=== PATIENT | female | born 1975 | race American Indian/Alaskan Native ===

== ENCOUNTER 2016-09-17 16:50 | Inpatient (IN) | payer OTHER, SELFPAY ==
[2016-09-17] MEDS ORDERED: Docusate Sodium 100 MG Cap PO PRN (18:12)
[2016-09-17] MEDS ORDERED: Morphine 2 MG/ML Syringe IVPUSH PRN (18:12)
[2016-09-17] MEDS ORDERED: Acetaminophen 325 MG Tab PO PRN (18:12)
[2016-09-17] MEDS ORDERED: Ondansetron 4 MG Tab.DIS PO PRN (18:12)
[2016-09-17] MEDS ORDERED: Sodium Chloride 0.9% 10 ML Syringe FLUSH PRN (18:12)
--- NOTE | 2016-09-17 18:37 | PCM.HP ---
H&P History of Present Illness - General Date of Service: 09/17/16 Admit Problem/Dx: Admission Diagnosis/Problem Admission Diagnosis/Problem Cellulitis and abscess of foot excluding toe - History of Present Illness Initial Comments - Free Text/Narative: 41-year-old morbidly obese lady with a history of chronic venous stasis. She developed left lower extremity swelling with erythema associated with the drainage. She was seen in the clinic and was diagnosed with cellulitis. She was started on Keflex and Bactrim. She was using compression wrap. On the recheck appointment it seemed to be improving on 10 September,today was seen by her primary care physician and it was felt that the swelling gets worse significant leakage and the ongoing cellulitis is not improving. - Related Data Allergies/Adverse Reactions: Allergies Allergy/AdvReac Type Severity Reaction Status Date / Time codeine Allergy Hives Verified 07/11/14 21:06 propoxyphene napsylate Allergy Rash Verified 07/11/14 21:06 [From DarSpriggle Kidscet-N 100] Home Medications: Home Meds . [No Known Home Meds] 07/11/14 [History] Past Medical History Endocrine/Metabolic History: Reports: Obesity/BMI 30+ Social & Family History - Tobacco Use Smoking Status *Q: Current Every Day Smoker Tobacco Use Within Last Twelve Months: Cigarettes Years of Tobacco use: 25 - Alcohol Use Alcohol Use History: No Days Per Week of Alcohol Use: 0 - Recreational Drug Use Recreational Drug Use: No H&P Review of Systems - Review of Systems: Review Of Systems: See Below General: Denies: fever, chills Pulmonary: Denies: shortness of breath Cardiovascular: Denies: chest pain Gastrointestinal: Denies: Abdominal pain Skin: Reports: erythema Neurological: Denies: confusion Exam - Exam Exam: See Below - Exam Quality Assessment: No: supplemental oxygen General: alert, oriented Neck: supple, trachea midline, 2 Lungs: Clear to auscultation, Normal respiratory effort Cardiovascular: regular rate, regular rhythm Abdomen: normal bowel sounds, soft, other (morbidly obese) Extremities: edema (1+ right side, 2+ left) Skin: other (left lower extremity with venous status is dermatitis chronic changes with erythema swelling diffuse blisters and serosus leakage) - Patient Data Lab Results last 24 hrs: Results for MICHAEL RICHEY ( ) as of 09/17/2016 18:12 Ref. Range 09/17/2016 16:46 09/17/2016 16:48 BUN Latest Ref Range: 7 - 18 mg/dL 15 Sodium Latest Ref Range: 136 - 145 mmol/L 140 Potassium Latest Ref Range: 3.5 - 5.1 mmol/L 4.1 Chloride Latest Ref Range: 98 - 107 mmol/L 102 CO2 Latest Ref Range: 21.0 - 32.0 mmol/L 27.0 SERUM GLUCOSE Latest Ref Range: 70 - 99 mg/dL 90 Creatinine Latest Ref Range: 0.6 - 1.0 mg/dL 1.0 Calcium Latest Ref Range: 8.5 - 10.1 mg/dL 9.0 ANION GAP Latest Ref Range: 5.0 - 13.0 mmol/L 11.0 GFR Calculated Latest Units: mL/min/1.73 sq m >60 Hemoglobin A1C Latest Ref Range: 4.8 - 6.2 % 7.4 (H) CBC WITH AUTO DIFF Unknown Rpt (A) WBC Latest Ref Range: 3.60 - 11.00 K/uL 12.50 (H) RBC Latest Ref Range: 3.80 - 5.40 M/uL 5.12 Hemoglobin Latest Ref Range: 12.0 - 16.0 g/dL 12.8 Hematocrit Latest Ref Range: 35.0 - 49.0 % 39.4 MCV Latest Ref Range: 80.0 - 100.0 fL 76.9 (L) MCH Latest Ref Range: 26.0 - 34.0 pg 25.1 (L) MCHC Latest Ref Range: 32.0 - 36.0 g/dL 32.6 Platelets Latest Ref Range: 150 - 450 K/L 386 MPV Latest Ref Range: 8.0 - 13.0 fL 9.6 RDW CV Latest Ref Range: 11.5 - 14.0 % 16.1 (H) Total Count Unknown 100 Neutrophil Relative Percent Latest Ref Range: 42.2 - 75.2 % 75.0 Bands Relative Latest Ref Range: 2.0 - 6.0 % 1.0 (L) LYMPH % Latest Ref Range: 20.5 - 51.1 % 18.0 (L) MONOCYTE % Latest Ref Range: 1.7 - 9.3 % 4.0 Eosinophils Relative Latest Ref Range: 0.9 - 6.0 % 2.0 NEUT # Latest Ref Range: 1.40 - 6.50 K/UL 9.38 (H) Bands Absolute Latest Ref Range: 0.00 - 0.60 K/uL 0.13 LYMPH # Latest Ref Range: 1.20 - 3.40 K/UL 2.25 MONOCYTE # Latest Ref Range: 0.10 - 0.60 K/UL 0.50 Eosinophil Absolute Count Latest Ref Range: 0.00 - 0.50 K/uL 0.25 *Q Meaningful Use (ADM) - VTE *Q VTE Criteria *Q: - Stroke *Q Stroke Criteria *Q: - AMI *Q AMI Criteria *Q: - Problem List (1) Cellulitis and abscess of leg SNOMED Code(s): 390251575 ICD Code: L02.419 - CUTANEOUS ABSCESS OF LIMB, UNSPECIFIED; L03.119 - CELLULITIS OF UNSPECIFIED PART OF LIMB Status: Acute Current Visit: Yes (2) Morbid obesity SNOMED Code(s): 899074921, 44716435577085 ICD Code: E66.01 - MORBID (SEVERE) OBESITY DUE TO EXCESS CALORIES Status: Acute Current Visit: Yes Problem List Initiated/Reviewed/Updated: Yes Orders Last 24hrs: Active Orders 24 hr Category Date Time Status Patient Status [ADT] Routine ADT 09/17/16 18:12 Ordered Antiembolic Devices [RC] PER UNIT ROUTINE Care 09/17/16 18:13 Ordered Communication Order [RC] DAILY Care 09/17/16 18:29 Active Oxygen Therapy [RC] PRN Care 09/17/16 18:12 Ordered Peripheral IV Care [RC] . DIRECTED Care 09/17/16 18:13 Ordered Up With Assistance [RC] ASDIRECTED Care 09/17/16 18:12 Ordered VTE/DVT Education [RC] PER UNIT ROUTINE Care 09/17/16 18:12 Ordered Vital Signs [RC] Q4H Care 09/17/16 18:12 Ordered OT Evaluation and Treatment [CONS] Routine Cons 09/17/16 18:28 Ordered Regular Diet [DIET] Diet 09/17/16 Breakfast Ordered BASIC METABOLIC PANEL,BMP [CHEM] AM Lab 09/18/16 05:15 Ordered CBC WITH AUTO DIFF [HEME] AM Lab 09/18/16 05:15 Ordered CULTURE BLOOD [BC] Stat Lab 09/17/16 18:10 Ordered CULTURE BLOOD [BC] Stat Lab 09/17/16 18:10 Ordered LACTIC ACID [CHEM] Routine Lab 09/17/16 18:10 Ordered Acetaminophen [Tylenol] Med 09/17/16 18:12 Ordered 650 mg PO Q4H PRN Docusate Sodium [Colace] Med 09/17/16 18:12 Ordered 100 mg PO BID PRN Enoxaparin [Lovenox] Med 09/18/16 09:00 Ordered 40 mg SUBCUT DAILY Morphine Med 09/17/16 18:12 Ordered 1 mg IVPUSH Q2H PRN Multivitamins/Minerals [Vitamins and Minerals] Med 09/18/16 08:00 Ordered 1 tab PO WITHBREAKFAST Nicotine [Habitrol] Med 09/18/16 09:00 Ordered 14 mg TRDERM DAILY Ondansetron [Zofran ODT] Med 09/17/16 18:12 Ordered 4 mg PO Q6H PRN Piperacillin/Tazobactam [Zosyn] 3.375 gm Med 09/17/16 18:15 Ordered Sodium Chloride 0.9% [Normal Saline] 100 ml IV Q6H Sodium Chloride 0.9% [Saline Flush] Med 09/17/16 18:12 Ordered 10 ml FLUSH ASDIRECTED PRN Vancomycin Pharmacy to Dose [Pharmacy to Dose - Med 09/17/16 18:15 Ordered Vancomycin] 1 dose .XX ASDIRECTED Zolpidem [Ambien] Med 09/17/16 18:12 Ordered 5 mg PO BEDTIME PRN Antiembolic Hose [OM.PC] Per Unit Routine Oth 09/17/16 18:13 Ordered Blood Culture x2 Reflex Set [OM.PC] Stat Oth 09/17/16 18:10 Ordered Peripheral IV Insertion Adult [OM.PC] Routine Oth 09/17/16 18:12 Ordered Saline Lock Insert [OM.PC] Routine Oth 09/17/16 18:12 Ordered Resuscitation Status Routine Resus Stat 09/17/16 18:12 Ordered Venous Duplex Leg Lt [CV] Routine Ther 09/17/16 18:31 Ordered Medication Orders Acetaminophen (Tylenol) 650 mg PO Q4H PRN PRN Reason: Pain (Mild 1-3)/fever Docusate Sodium (Colace) 100 mg PO BID PRN PRN Reason: Constipation Enoxaparin Sodium (Lovenox) 40 mg SUBCUT DAILY [facility] Piperacillin Sod/Tazobactam (Sod 3.375 gm/ Sodium Chloride) 100 mls @ 200 mls/ hr IV Q6H [facility] Morphine Sulfate (Morphine) 1 mg IVPUSH Q2H PRN PRN Reason: Pain (severe 7-10) Multivitamins/Minerals (Vitamins And Minerals) 1 tab PO WITHBREAKFAST [facility] Nicotine (Habitrol) 14 mg TRDERM DAILY [facility] Ondansetron HCl (Zofran Odt) 4 mg PO Q6H PRN PRN Reason: nausea, able to take PO Sodium Chloride (Saline Flush) 10 ml FLUSH ASDIRECTED PRN PRN Reason: Keep Vein Open Vancomycin HCl (Pharmacy To Dose - Vancomycin) 1 dose .XX ASDIRECTED [facility] Zolpidem Tartrate (Ambien) 5 mg PO BEDTIME PRN PRN Reason: Sleep Assessment/Plan Comment:: 1. left lower extremity cellulitis with diffuse blistering, edema With history of chronic venous stasis dermatitis We'll obtain blood cultures obtain lower extremity venous ultrasound to rule out DVT Treat empirically with Zosyn and vancomycin We will use compression therapy, and consult occupational therapy for lymphedema wrap For wound care we'll use xeroform dressing. 2. Morbid obesity Weight loss suggested 3. DVT prophylaxis with Lovenox
[2016-09-17] MEDS ORDERED: Piperacillin/Tazobactam 3.375 GM in Sodium Chloride 0.9% 100 ML IV SCH (19:00)
[2016-09-17] MEDS ORDERED: Vancomycin 2 GM in Sodium Chloride 0.9% 500 ML IV SCH (20:00)
[2016-09-17] MEDS: Zolpidem 5 MG Tab PO PRN (22:17)
[2016-09-18] MEDS: Piperacillin/Tazobactam 3.375 GM in Sodium Chloride 0.9% 100 ML IV SCH ×4 (01:48→20:10)
[2016-09-18 06:53] LABS: CHLORIDE,CL 105 mmol/L (101-111); SODIUM,NA 135 mmol/L (135-145)
[2016-09-18] MEDS: Enoxaparin 40 MG/0.4 ML Syringe SUBCUT SCH (08:27)
[2016-09-18] MEDS: Multivitamins, Therapeutic with Minerals Tab PO SCH (08:28)
[2016-09-18] MEDS: Nicotine 14 MG/24 Hr Patch TRDERM SCH (08:28)
[2016-09-18] MEDS: Vancomycin 2 GM in Sodium Chloride 0.9% 500 ML IV SCH ×2 (10:04→22:02)
--- NOTE | 2016-09-18 10:37 | US ---
CLINICAL HISTORY: 41-year-old 320 pound female at bed rest with left lower extremity edema and calf pain. Rule out DVT. INTERPRETATION: Technically "difficult" exam due to patient's size confirms some lymph nodes in the left groin and apparent soft tissue edema but fails to demonstrate intravenous thrombosis or DVT lef t lower extremity. Cellulitis? No sign of intraluminal echogenic thrombus and normal compressibility deep veins of the left groin, thigh and knee with satisfactory augmentation venous waveforms demonstrated respectively in the left popliteal, superficial and common femoral vein. CONCLUSION: No DVT left lower extremity.
--- NOTE | 2016-09-18 10:42 | PN ---
DATE: 09/18/2016 SUBJECTIVE: Mrs. Malina Rueda is a 41-year-old female with a medical history significant for obesity,chronic venous stasis, was admitted to the hospital with left lower extremity cellulitis after failed outpatient treatment. For the past 24 hours, the patient continues to have swelling to the left lower extremity. She continues to have mild pain. No shortness of breath. No chest pain. No abdominal pain. No nausea. No vomiting. No diarrhea. REVIEW OF SYSTEMS: Cardiovascular, respiratory, gastrointestinal, neurology, constitutional were all evaluated. OBJECTIVE: Vital Signs: Temperature of 99, blood pressure of 115/51, respiratory rate of 20, pulse of 109, saturating on 93%. General Appearance: The patient is well oriented to time, place, and person. Follows commands spontaneously. Cardiovascular System: S1, S2 heard with normal intensity. No gallops. Respiratory: Clear to auscultation bilaterally. No wheeze. No crepitations. Abdomen: Soft. Bowel sounds positive. Nontender. No rigidity. Extremities: Edema of bilateral lower extremity, but more so on the left side. Erythema and swelling on the left side. Skin breakdown on the left side. MEDICATIONS: Reviewed. Continue with: 1. Tylenol 650 mg every 4 hours as needed for pain. 2. Lovenox 40 mg daily. 3. Morphine every 2 hours as needed 1 mg. 4. Zosyn 3.375 g IV q.6 hourly. 5. Vancomycin pharmacy to dose. 6. Ambien 5 mg at bedtime as needed for sleep. LABORATORY DATA: WBC 9.3, hemoglobin 11.2, hematocrit 36.8, platelet count 324. Sodium 135, potassium 4.2, chloride 105, bicarb 23, BUN 12, creatinine 1. ASSESSMENT: 1. Cellulitis of the left lower extremity. 2. Chronic venous stasis. 3. Morbid obesity. PLAN: 1. Cellulitis. The patient has failed outpatient treatment with oral antibiotics; so, the patient was admitted to the hospital and started on IV antibiotics, Zosyn and vancomycin, after which her symptoms seems to be improving. Follow with the blood culture reports. Continue with IV antibiotics and continue with lymphedema wraps. The patient had ultrasound Doppler of the lower extremity, which did not show any evidence of DVT at this time. We will follow the official report. 2. DVT prophylaxis. Continue Lovenox for DVT prophylaxis. 3. We will have Physical Therapy and Occupational Therapy evaluate and treat the patient. 4. Discussed with Dr. Barth regarding the plan of care. [facility] /[id number]
[2016-09-19] MEDS: Zolpidem 5 MG Tab PO PRN (00:40)
[2016-09-19] MEDS: Piperacillin/Tazobactam 3.375 GM in Sodium Chloride 0.9% 100 ML IV SCH ×3 (02:11→14:17)
[2016-09-19 09:10] LABS: CHLORIDE,CL 105 mmol/L (101-111); SODIUM,NA 138 mmol/L (135-145)
[2016-09-19] MEDS: Nicotine 14 MG/24 Hr Patch TRDERM SCH (09:26)
[2016-09-19] MEDS: Multivitamins, Therapeutic with Minerals Tab PO SCH (09:28)
[2016-09-19] MEDS: Enoxaparin 40 MG/0.4 ML Syringe SUBCUT SCH (09:28)
[2016-09-19 11:13] VITALS: BP 108/49
[2016-09-19] MEDS: Vancomycin 2 GM in Sodium Chloride 0.9% 500 ML IV SCH (11:14)
--- NOTE | 2016-09-19 12:50 | DISCH ---
ADMITTING DIAGNOSIS: Cellulitis involving the left lower extremity. DISCHARGE DIAGNOSES: 1. Cellulitis involving the left lower extremity. 2. Cellulitis complicated with necrotic tissue requiring debridement needing higher level of care with surgery and wound care consultation needing discharge to higher level of care. HISTORY OF PRESENTING ILLNESS: Mrs. Malina Rueda is a 41-year-old female with medical history significant for obesity, chronic venous stasis was admitted to the hospital with left lower extremity cellulitis after failed outpatient treatment. She was started on broad-spectrum antibiotic with Zosyn and vancomycin. We continued with wound care, but unfortunately, her wound seems to be worsening with the wound cares. She is noted to have necrotic tissue along with some skin needing higher level of care, needing surgical consultation and also wound care consultation with possible debridement of the tissue. She is being discharged to higher level of care to [facility] for further evaluation and treatment. She remained hemodynamically stable on this admission. We will continue with broad-spectrum IV antibiotics. The patient's family members agreed for the transfer. PHYSICAL EXAMINATION: Vital Signs: On the day of discharge; temperature of 99, pulse of 77, blood pressure 108/49, respiratory rate of 20, and saturating at 98%. General Appearance: The patient is well oriented to time, place, and person. Follows commands spontaneously. Cardiovascular System: S1 and S2 heard with normal intensity. No gallops. Respiratory System: Clear to auscultation bilaterally. No wheeze. No crepitations. Abdomen: Soft. Bowel sounds positive. Nontender. No rigidity. Extremities: Mild edema in bilateral lower extremity, more so on the left side. The patient is noted have extensive erythema, swelling, and tenderness on the left side. Skin breakdown noted on the left side. Some necrotic skin tissue noted on the left medial aspect of the calf on the proximal site. Weeping wound noted on the left lower extremity. Neurologic: No gross focal neurological deficits. DISCHARGE MEDICATIONS: Include: 1. Tylenol 650 mg every 4 hours as needed for pain and fever. 2. Docusate sodium 100 mg twice a day as needed for constipation. 3. Lovenox 40 mg subcutaneous daily. 4. Morphine 1 mg IV every 2 hours as needed for pain. 5. Multivitamin tablet 1 tablet daily. 6. Nicotine transdermal patch 14 mg daily. 7. Zosyn 3.375 g every 6 hours. 8. Vancomycin 2 g IV every 12 hours. 9. Ambien 5 mg as needed for sleep. CONDITION ON ADMISSION: Poor. CONDITION ON DISCHARGE: Stable. Discharged to [facility] for surgery and wound care consultation for possible debridement of the wound. DIET: Cardiac healthy diet. ACTIVITY: As tolerated. Follow with primary care physician, after getting discharged from [facility]. Spent over 35 minutes of time in evaluating and treating this patient and coordination of cares. [facility] /[id number]
== END 2016-09-19 14:15 | DRG 603 ==
LOC: DL.MS 17:52 → EEVIPCON 17:52
PROVIDERS: ADMIT Internal Medicine; ATTEND Internal Medicine
DX: L03.116 Cellulitis of left lower limb (principal); I87.2 Venous insufficiency (chronic) (peripheral); E66.01 Morbid (severe) obesity due to excess calories; Z68.30 Body mass index [BMI] 30.0-30.9, adult; F17.210 Nicotine dependence, cigarettes, uncomplicated; Z88.8 Allergy status to other drugs, medicaments and biological substances
CPT/HCPCS: 36410; 36415; 80048; 80202; 83605; 85025; 87040; 93971; 97165-GO; A9270-GY; J1650; J2543; J3370; J7040; J7050

== ENCOUNTER 2017-02-16 11:08 | Inpatient (IN) | payer OTHER, SELFPAY ==
--- NOTE | 2017-02-16 11:12 | EDM.PDOC ---
ED HPI GENERAL MEDICAL PROBLEM - General Chief Complaint: Lower Extremity Injury/Pain Stated Complaint: RIGHT LEG Time Seen by Provider: 02/16/17 11:11 Source of Information: Reports: Patient, Old Records, RN, RN Notes Reviewed History Limitations: Reports: No Limitations - History of Present Illness INITIAL COMMENTS - FREE TEXT/NARRATIVE: Arrives from home by POV with c/o noticing a small wound on the back of the Rt calf yesterday with some redness around it. This morning pt reports she woke with a large area of redness and pain with a fever sensation. She came to the ER now because within a few hours the redness had rapidly increased from the Rt ankle to the knee and goes all the way around, and the pain is far more than what she would expect from cellulitis based on her past experience. Pt c/o nausea also. Onset: Gradual Onset Date: 02/15/17 Duration: Constant, Getting Worse Location: Reports: Lower Extremity, Right Quality: Reports: Ache, Burning, Throbbing Severity: Severe Improves with: Reports: None Worsens with: Reports: Other (palpation), Movement Associated Symptoms: Reports: No Other Symptoms Right Lower Leg Pain Score (Numeric/FACES): 6 - Related Data Allergies Allergy/AdvReac Type Severity Reaction Status Date / Time codeine Allergy Hives Verified 07/11/14 21:06 propoxyphene napsylate Allergy Rash Verified 07/11/14 21:06 [From Darnielscet-N 100] Home Meds: Home Meds Acetaminophen [Tylenol] 650 mg PO Q4H PRN #0 tablet 09/19/16 [Rx] Docusate Sodium [Colace] 100 mg PO BID PRN #0 cap 09/19/16 [Rx] Enoxaparin [Lovenox] 40 mg SUBCUT DAILY syringe 09/19/16 [Rx] Morphine 1 mg IVPUSH Q2H PRN #0 syringe 09/19/16 [Rx] Multivitamins/Minerals [Vitamins and Minerals] 1 tab PO WITHBREAKFAST tablet [Rx] Nicotine [Habitrol] 14 mg TRDERM DAILY patch 09/19/16 [Rx] Piperacillin/Tazobactam [Zosyn] 3.375 gm IV Q6H vial 09/19/16 [Rx] Vancomycin 2 gm IV Q12H sdv 09/19/16 [Rx] Zolpidem [Ambien] 5 mg PO BEDTIME PRN #7 tablet 09/19/16 [Rx] Past Medical History Cardiovascular History: Reports: Other (See Below) Other Cardiovascular History: edema with chronic venous stasis Endocrine/Metabolic History: Reports: Diabetes, Type II (borderline), Obesity/ BMI 30+ Dermatologic History: Reports: Cellulitis, Venous Stasis Dermatitis - Infectious Disease History Infectious Disease History: Reports: MRSA - Past Surgical History Cardiovascular Surgical History: Reports: None Social & Family History - Family History Family Medical History: Noncontributory - Tobacco Use Smoking Status *Q: Current Every Day Smoker Years of Tobacco use: 25 Packs/Tins Daily: 1 Used Tobacco, but Quit: No Second Hand Smoke Exposure: No - Caffeine Use Caffeine Use: Reports: Soda - Alcohol Use Days Per Week of Alcohol Use: 0 - Recreational Drug Use Recreational Drug Use: No - Living Situation & Occupation Living situation: Reports: with Family Occupation: Disabled Review of Systems - Review of Systems Review Of Systems: ROS reveals no pertinent complaints other than HPI. ED EXAM, GENERAL - Physical Exam Exam: See Below Exam Limited By: No Limitations General Appearance: Alert, WD/WN, No Apparent Distress, Anxious, Obese Eye Exam: Bilateral Eye: Normal Inspection Nose: Normal Inspection, Normal Mucosa, No Blood Throat/Mouth: Normal Inspection Head: Atraumatic, Normocephalic Neck: Normal Inspection Respiratory/Chest: No Respiratory Distress, Lungs Clear, Normal Breath Sounds, No Accessory Muscle Use, Chest Non-Tender Cardiovascular: Regular Rate, Rhythm, Tachycardia GI/Abdominal: Normal Bowel Sounds, Soft, Other (benign obese abdomen) Extremities: Normal Capillary Refill, Pedal Edema (with chronic venous stasis changes), Leg Pain (Rt from ankle to mid-thigh), Increased Warmth (Rt lower ext. ), Redness Neurological: Alert, Oriented, CN II-XII Intact, Normal Cognition, No Motor/ Sensory Deficits Psychiatric: Anxious Course - Vital Signs Last Recorded V/S: Last Vital Signs Temp 37.9 C 02/16/17 11:31 Pulse 119 H 02/16/17 11:31 Resp 20 02/16/17 11:31 BP 144/113 H 02/16/17 11:31 Pulse Ox 95 02/16/17 11:31 - Orders/Labs/Meds Orders: Active Orders 24 hr Category Date Time Status Peripheral IV Care [RC] . DIRECTED Care 02/16/17 11:51 Active Tibia Fibula wo Cont Rt [MR] Routine Exams 02/16/17 12:43 Taken CULTURE BLOOD [BC] Stat Lab 02/16/17 12:20 Results CULTURE BLOOD [BC] Stat Lab 02/16/17 14:22 Results Sodium Chloride 0.9% [Saline Flush] Med 02/16/17 11:51 Active 10 ml FLUSH ASDIRECTED PRN Blood Culture x2 Reflex Set [OM.PC] Stat Oth 02/16/17 11:50 Ordered Peripheral IV Insertion Adult [OM.PC] Stat Oth 02/16/17 11:50 Ordered Medication Orders Sodium Chloride (Saline Flush) 10 ml FLUSH ASDIRECTED PRN PRN Reason: Keep Vein Open Last Admin: 02/16/17 14:38 Dose: 10 ml Labs: Laboratory Tests 02/16/17 02/16/17 02/16/17 Range/Units 12:20 14:11 14:11 WBC (5.0-10.0) 10^3/uL RBC (4.2-5.4) 10^6/uL Hgb (12.0-16.0) g/dL Hct (37.0-47.0) % MCV (80-100) fL MCH (27.0-34.0) pg MCHC (33.0-35.0) g/dL Plt Count (150-450) 10^3/uL Neut % (Auto) (42.2-75.2) % Lymph % (Auto) (20.5-50.1) % [place] % (Auto) (2-8) % Eos % (Auto) (1.0-3.0) % Baso % (Auto) (0.0-1.0) % Add Manual Diff Neutrophils % (Manual) % Band Neutrophils % % Lymphocytes % (Manual) % Monocytes % (Manual) % Sodium (135-145) mmol/L Potassium (3.6-5.0) mmol/L Chloride (101-111) mmol/L Carbon Dioxide (21.0-31.0) mmol/L Anion Gap BUN (7-18) mg/dL Creatinine (0.6-1.3) mg/dL Est Cr Clr Drug Dosing mL/min Estimated GFR (MDRD) BUN/Creatinine Ratio Glucose (74-105) mg/dL Lactic Acid 2.2 (0.5-2.2) mmol/L Calcium (8.4-10.2) mg/dl Total Bilirubin (0.2-1.0) mg/dL AST (10-42) IU/L ALT (10-60) IU/L Alkaline Phosphatase (42-121) IU/L Creatine Kinase (26-174) IU/L C-Reactive Protein (0.0-1.3) mg/dL Total Protein (6.7-8.2) g/dl Albumin (3.2-5.5) g/dl Globulin Albumin/Globulin Ratio Urine Color (YELLOW) Urine Appearance (CLEAR) Urine pH (5.0-9.0) Ur Specific [place] (1.005-1.030) Urine Protein (NEGATIVE) Urine Glucose (UA) (NEGATIVE) Urine Ketones (NEGATIVE) Urine Occult Blood (NEGATIVE) Urine Nitrite (NEGATIVE) Urine Bilirubin (NEGATIVE) Urine Urobilinogen (0.2-1.0) mg/dL Ur Leukocyte Esterase (NEGATIVE) Urine RBC /HPF Urine WBC (0-5/HPF) /HPF Ur Epithelial Cells /HPF Urine Bacteria (0-FEW/HPF) /HPF Urine Mucus /LPF Urine Trichomonas (0/HPF) /HPF Urine Yeast (0/HPF) /HPF Urine HCG, Qual Negative Urine Opiates Screen Positive H (NEGATIVE) Ur Oxycodone Screen Negative (NEGATIVE) Urine Methadone Screen Negative (NEGATIVE) Ur Barbiturates Screen Negative (NEGATIVE) U Tricyclic Antidepress Negative (NEGATIVE) Ur Phencyclidine Scrn Negative (NEGATIVE) Ur Amphetamine Screen Negative (NEGATIVE) U Methamphetamines Scrn Negative (NEGATIVE) Urine MDMA Screen Negative (NEGATIVE) U Benzodiazepines Scrn Negative (NEGATIVE) Urine Cocaine Screen Negative (NEGATIVE) U Marijuana (THC) Screen Negative (NEGATIVE) 02/16/17 02/16/17 02/16/17 Range/Units 14:11 14:22 14:22 WBC 26.3 H* (5.0-10.0) 10^3/uL RBC 5.55 H (4.2-5.4) 10^6/uL Hgb 14.0 (12.0-16.0) g/dL Hct 44.8 (37.0-47.0) % MCV 80.7 (80-100) fL MCH 25.2 L (27.0-34.0) pg MCHC 31.3 L (33.0-35.0) g/dL Plt Count 183 (150-450) 10^3/uL Neut % (Auto) 95.3 H (42.2-75.2) % Lymph % (Auto) 1.9 L (20.5-50.1) % [place] % (Auto) 2.7 (2-8) % Eos % (Auto) 0.0 L (1.0-3.0) % Baso % (Auto) 0.1 (0.0-1.0) % Add Manual Diff Yes Neutrophils % (Manual) 87 % Band Neutrophils % 5 % Lymphocytes % (Manual) 6 % Monocytes % (Manual) 2 % Sodium 142 (135-145) mmol/L Potassium 3.7 (3.6-5.0) mmol/L Chloride 107 (101-111) mmol/L Carbon Dioxide 24.0 (21.0-31.0) mmol/L Anion Gap 14.7 BUN 17 (7-18) mg/dL Creatinine 0.9 (0.6-1.3) mg/dL Est Cr Clr Drug Dosing 67.36 mL/min Estimated GFR (MDRD) > 60 BUN/Creatinine Ratio 18.88 Glucose 123 H (74-105) mg/dL Lactic Acid (0.5-2.2) mmol/L Calcium 8.5 (8.4-10.2) mg/dl Total Bilirubin 0.6 (0.2-1.0) mg/dL AST 21 (10-42) IU/L ALT 16 (10-60) IU/L Alkaline Phosphatase 76 (42-121) IU/L Creatine Kinase 40 (26-174) IU/L C-Reactive Protein (0.0-1.3) mg/dL Total Protein 7.0 (6.7-8.2) g/dl Albumin 3.5 (3.2-5.5) g/dl Globulin 3.5 Albumin/Globulin Ratio 1.00 Urine Color Yellow (YELLOW) Urine Appearance Cloudy (CLEAR) Urine pH 5.5 (5.0-9.0) Ur Specific [place] 1.020 (1.005-1.030) Urine Protein 30 H (NEGATIVE) Urine Glucose (UA) Negative (NEGATIVE) Urine Ketones Negative (NEGATIVE) Urine Occult Blood Moderate H (NEGATIVE) Urine Nitrite Negative (NEGATIVE) Urine Bilirubin Negative (NEGATIVE) Urine Urobilinogen 0.2 (0.2-1.0) mg/dL Ur Leukocyte Esterase Trace H (NEGATIVE) Urine RBC 5-10 H /HPF Urine WBC 5-10 H (0-5/HPF) /HPF Ur Epithelial Cells Many H /HPF Urine Bacteria Moderate H (0-FEW/HPF) /HPF Urine Mucus Rare /LPF Urine Trichomonas Present H (0/HPF) /HPF Urine Yeast Few H (0/HPF) /HPF Urine HCG, Qual Urine Opiates Screen (NEGATIVE) Ur Oxycodone Screen (NEGATIVE) Urine Methadone Screen (NEGATIVE) Ur Barbiturates Screen (NEGATIVE) U Tricyclic Antidepress (NEGATIVE) Ur Phencyclidine Scrn (NEGATIVE) Ur Amphetamine Screen (NEGATIVE) U Methamphetamines Scrn (NEGATIVE) Urine MDMA Screen (NEGATIVE) U Benzodiazepines Scrn (NEGATIVE) Urine Cocaine Screen (NEGATIVE) U Marijuana (THC) Screen (NEGATIVE) 02/16/17 Range/Units 14:22 WBC (5.0-10.0) 10^3/uL RBC (4.2-5.4) 10^6/uL Hgb (12.0-16.0) g/dL Hct (37.0-47.0) % MCV (80-100) fL MCH (27.0-34.0) pg MCHC (33.0-35.0) g/dL Plt Count (150-450) 10^3/uL Neut % (Auto) (42.2-75.2) % Lymph % (Auto) (20.5-50.1) % [place] % (Auto) (2-8) % Eos % (Auto) (1.0-3.0) % Baso % (Auto) (0.0-1.0) % Add Manual Diff Neutrophils % (Manual) % Band Neutrophils % % Lymphocytes % (Manual) % Monocytes % (Manual) % Sodium (135-145) mmol/L Potassium (3.6-5.0) mmol/L Chloride (101-111) mmol/L Carbon Dioxide (21.0-31.0) mmol/L Anion Gap BUN (7-18) mg/dL Creatinine (0.6-1.3) mg/dL Est Cr Clr Drug Dosing mL/min Estimated GFR (MDRD) BUN/Creatinine Ratio Glucose (74-105) mg/dL Lactic Acid (0.5-2.2) mmol/L Calcium (8.4-10.2) mg/dl Total Bilirubin (0.2-1.0) mg/dL AST (10-42) IU/L ALT (10-60) IU/L Alkaline Phosphatase (42-121) IU/L Creatine Kinase (26-174) IU/L C-Reactive Protein 4.6 H (0.0-1.3) mg/dL Total Protein (6.7-8.2) g/dl Albumin (3.2-5.5) g/dl Globulin Albumin/Globulin Ratio Urine Color (YELLOW) Urine Appearance (CLEAR) Urine pH (5.0-9.0) Ur Specific [place] (1.005-1.030) Urine Protein (NEGATIVE) Urine Glucose (UA) (NEGATIVE) Urine Ketones (NEGATIVE) Urine Occult Blood (NEGATIVE) Urine Nitrite (NEGATIVE) Urine Bilirubin (NEGATIVE) Urine Urobilinogen (0.2-1.0) mg/dL Ur Leukocyte Esterase (NEGATIVE) Urine RBC /HPF Urine WBC (0-5/HPF) /HPF Ur Epithelial Cells /HPF Urine Bacteria (0-FEW/HPF) /HPF Urine Mucus /LPF Urine Trichomonas (0/HPF) /HPF Urine Yeast (0/HPF) /HPF Urine HCG, Qual Urine Opiates Screen (NEGATIVE) Ur Oxycodone Screen (NEGATIVE) Urine Methadone Screen (NEGATIVE) Ur Barbiturates Screen (NEGATIVE) U Tricyclic Antidepress (NEGATIVE) Ur Phencyclidine Scrn (NEGATIVE) Ur Amphetamine Screen (NEGATIVE) U Methamphetamines Scrn (NEGATIVE) Urine MDMA Screen (NEGATIVE) U Benzodiazepines Scrn (NEGATIVE) Urine Cocaine Screen (NEGATIVE) U Marijuana (THC) Screen (NEGATIVE) Meds: Medications Generic Name Dose Route Start Last Admin Trade Name Freq PRN Reason Stop Dose Admin Sodium Chloride 10 ml 02/16/17 11:51 02/16/17 14:38 Saline Flush FLUSH 10 ml ASDIRECTED PRN Administration Keep Vein Open Discontinued Medications Generic Name Dose Route Start Last Admin Trade Name Freq PRN Reason Stop Dose Admin Diphenhydramine HCl 25 mg 02/16/17 12:08 02/16/17 12:40 Benadryl IVPUSH 02/16/17 12:09 25 mg ONETIME ONE Administration Sodium Chloride 1,000 mls @ 999 mls/hr 02/16/17 11:51 02/16/17 12:37 Normal Saline IV 02/16/17 12:51 999 mls/hr .BOLUS ONE Administration Vancomycin HCl 2 gm/ Sodium 500 mls @ 333.333 mls/hr 02/16/17 14:00 02/16/17 15:09 Chloride IV 02/16/17 15:29 333.333 mls/hr ONETIME ONE Administration Piperacillin Sod/Tazobactam 100 mls @ 200 mls/hr 02/16/17 13:15 02/16/17 14: 38 Sod 4.5 gm/ Sodium Chloride IV 02/16/17 13:44 200 mls/hr ONETIME ONE Administration Clindamycin Phosphate 900 mg/ 106 mls @ 200 mls/hr 02/16/17 14:26 Sodium Chloride IV 02/16/17 14:57 ONETIME ONE Sodium Chloride 1,000 mls @ 999 mls/hr 02/16/17 14:26 02/16/17 14:28 Normal Saline IV 02/16/17 15:26 999 mls/hr .BOLUS ONE Administration Metronidazole 2,000 mg 02/16/17 15:13 Metronidazole PO 02/16/17 15:14 ONETIME ONE Morphine Sulfate 4 mg 02/16/17 11:51 02/16/17 12:38 Morphine IVPUSH 02/16/17 11:52 4 mg ONETIME ONE Administration Morphine Sulfate 4 mg 02/16/17 14:07 Morphine IVPUSH 02/16/17 14:08 ONETIME ONE Ondansetron HCl 4 mg 02/16/17 11:51 02/16/17 12:39 Zofran IV 02/16/17 11:52 4 mg ONETIME ONE Administration - Radiology Interpretation Free Text/Narrative:: MRI Rt lower ext: soft tissue edema and fluid-like signal is present in the deep subcutaneous fat of the right lower extremity overlying the anterior muscle compartment and the medial posterior muscle comparts of the lower leg. No abnormal signal within the muscle groups themselves to suggest myositis. No abnormal fluid collections within the intermuscular septae or gas bubbles within the deep soft tissues to suggest necrotizing fascitis. The tibia and fibula cortical outlines and marrow signal appear normal. No evidence of osteomyelitis. See rad report. Departure - Departure Time of Disposition: 15:38 ((Admit to Dr. Barth)) Disposition: Admitted As Inpatient 65 Condition: Serious Clinical Impression: Cellulitis of right lower extremity, Trichimoniasis - Discharge Information Forms: ED Department Discharge - My Orders Last 24 Hours: My Active Orders 02/16/17 11:50 Blood Culture x2 Reflex Set [OM.PC] Stat Peripheral IV Insertion Adult [OM.PC] Stat 02/16/17 11:51 Peripheral IV Care [RC] . DIRECTED Sodium Chloride 0.9% [Saline Flush] 10 ml FLUSH ASDIRECTED PRN 02/16/17 12:20 CULTURE BLOOD [BC] Stat 02/16/17 12:43 Tibia Fibula wo Cont Rt [MR] Routine 02/16/17 14:22 CULTURE BLOOD [BC] Stat - Assessment/Plan Last 24 Hours: My Active Orders 02/16/17 11:50 Blood Culture x2 Reflex Set [OM.PC] Stat Peripheral IV Insertion Adult [OM.PC] Stat 02/16/17 11:51 Peripheral IV Care [RC] . DIRECTED Sodium Chloride 0.9% [Saline Flush] 10 ml FLUSH ASDIRECTED PRN 02/16/17 12:20 CULTURE BLOOD [BC] Stat 02/16/17 12:43 Tibia Fibula wo Cont Rt [MR] Routine 02/16/17 14:22 CULTURE BLOOD [BC] Stat
[2017-02-16] MEDS ORDERED: Morphine 4 MG/ML Syringe IVPUSH ONE ×2 (11:51→14:07)
[2017-02-16] MEDS ORDERED: Ondansetron 4 MG/2 ML SDV IV ONE (11:51)
[2017-02-16] MEDS ORDERED: Sodium Chloride 0.9% 1,000 ML IV ONE ×2 (11:51→14:26)
[2017-02-16] MEDS ORDERED: diphenhydrAMINE 50 MG/ML SDV IVPUSH ONE (12:08)
[2017-02-16] MEDS ORDERED: MEROPENEM IV ONE (12:09)
[2017-02-16] MEDS ORDERED: SODIUM CHLORIDE 0.9% IV ONE (12:09)
[2017-02-16] MEDS ORDERED: Vancomycin 500 MG SDV IV ONE (12:09)
[2017-02-16] MEDS ORDERED: Piperacillin/Tazobactam 4.5 GM in Sodium Chloride 0.9% 50 ML IV ONE ×2 (12:11→13:15)
[2017-02-16] MEDS ORDERED: Piperacillin/Tazobactam 4.5 GM in Sodium Chloride 0.9% 100 ML IV ONE (13:15)
[2017-02-16] MEDS ORDERED: Vancomycin 2 GM in Sodium Chloride 0.9% 500 ML IV ONE (14:00)
[2017-02-16] MEDS ORDERED: Clindamycin Phosphate 900 MG in Sodium Chloride 0.9% 100 ML IV ONE (14:26)
[2017-02-16] MEDS: Sodium Chloride 0.9% 10 ML Syringe FLUSH PRN ×2 (14:38→20:13)
[2017-02-16 14:55] LABS: CHLORIDE,CL 107 mmol/L (101-111); SODIUM,NA 142 mmol/L (135-145)
[2017-02-16] MEDS ORDERED: metroNIDAZOLE 250 MG Tab PO ONE (15:13)
[2017-02-16] MEDS ORDERED: Morphine 2 MG/ML Syringe IVPUSH PRN (16:26)
[2017-02-16] MEDS ORDERED: Ondansetron 4 MG Tab.DIS PO PRN (16:27)
[2017-02-16] MEDS ORDERED: Ondansetron 4 MG/2 ML SDV IVPUSH PRN (16:27)
[2017-02-16] MEDS ORDERED: Docusate Sodium 100 MG Cap PO PRN (16:27)
[2017-02-16] MEDS ORDERED: Piperacillin/Tazobactam 3.375 GM in Sodium Chloride 0.9% 100 ML IV SCH (16:30)
--- NOTE | 2017-02-16 17:00 | PCM.HP ---
H&P History of Present Illness - General Date of Service: 02/16/17 Admit Problem/Dx: Admission Diagnosis/Problem Admission Diagnosis/Problem Cellulitis Source of Information: Patient, Family () - History of Present Illness Initial Comments - Free Text/Narative: The patient is a 41-year-old lady who has a history of morbid obesity, chronic venous cystitis, recurrent lower extremity cellulitis. She has been on metformin for diabetes. She developed nausea and vomiting today and noted to have a right lower extremity redness. She also noted to small area of scabs on the posterior calf. She had chills associated with fever of 104. She has a chronic diarrhea with food. No associated chest pain, no shortness of breath. Right Lower Leg Pain Score (Numeric/FACES): 6 - Related Data Allergies/Adverse Reactions: Allergies Allergy/AdvReac Type Severity Reaction Status Date / Time codeine Allergy Hives Verified 02/16/17 16:48 propoxyphene napsylate Allergy Rash Verified 02/16/17 16:48 [From Darvocet-N 100] Home Medications: Home Meds Ibuprofen 200 mg PO ASDIRECTED PRN 02/16/17 [History] metFORMIN [Glucophage] 500 mg PO BIDMEALS 02/16/17 [History] Past Medical History Cardiovascular History: Reports: Other (See Below) Other Cardiovascular History: edema with chronic venous stasis Endocrine/Metabolic History: Reports: Diabetes, Type II (borderline), Obesity/ BMI 30+ Dermatologic History: Reports: Cellulitis, Venous Stasis Dermatitis - Infectious Disease History Infectious Disease History: Reports: MRSA - Past Surgical History Cardiovascular Surgical History: Reports: None Social & Family History - Family History Family Medical History: Noncontributory - Tobacco Use Smoking Status *Q: Current Every Day Smoker Years of Tobacco use: 25 Packs/Tins Daily: 1 Used Tobacco, but Quit: No Second Hand Smoke Exposure: No - Caffeine Use Caffeine Use: Reports: Soda - Alcohol Use Days Per Week of Alcohol Use: 0 - Recreational Drug Use Recreational Drug Use: No - Living Situation & Occupation Living situation: Reports: with Family Occupation: Disabled H&P Review of Systems - Review of Systems: Review Of Systems: See Below General: Reports: Fever, Chills Pulmonary: Denies: Shortness of Breath Cardiovascular: Denies: Chest Pain Gastrointestinal: Denies: Abdominal Pain Genitourinary: Denies: Frequency Musculoskeletal: Reports: Leg Pain (right) Psychiatric: Denies: Confusion Exam - Exam Exam: See Below - Vital Signs Vital Signs: Last Vital Signs Temp 37.9 C 02/16/17 11:31 Pulse 119 H 02/16/17 11:31 Resp 20 02/16/17 11:31 BP 144/113 H 02/16/17 11:31 Pulse Ox 95 02/16/17 11:31 Weight: 161.025 kg - Exam Quality Assessment: No: Supplemental Oxygen General: Alert, Oriented Neck: Supple Lungs: Clear to Auscultation, Normal Respiratory Effort Cardiovascular: Regular Rate, Regular Rhythm GI/Abdominal Exam: Normal Bowel Sounds, Soft, Non-Tender, Other (Morbidly obese) Back Exam: Normal Inspection Extremities: Other (Has mild left lower extremity and moderate right lower extremity edema) Skin: Warm, Other (On the left lower extremity there is chronic venous dialysis brownish discoloration, on the right lower extremity there is a reddened area up to knee, 2 small scabs on the posterior calf area without drainage) Psychiatric: Alert, Normal Affect, Normal Mood - Patient Data Result Diagrams: 02/16/17 14:22 02/16/17 14:22 *Q Meaningful Use (ADM) - VTE *Q VTE Criteria *Q: - Stroke *Q Stroke Criteria *Q: - AMI *Q AMI Criteria *Q: - Problem List (1) Diabetes SNOMED Code(s): 70886855 ICD Code: E11.9 - TYPE 2 DIABETES MELLITUS WITHOUT COMPLICATIONS Status: Acute Current Visit: Yes (2) Cellulitis of right lower extremity SNOMED Code(s): 876814250 ICD Code: L03.115 - CELLULITIS OF RIGHT LOWER LIMB Status: Acute Current Visit: Yes (3) Morbid obesity SNOMED Code(s): 657832180, 54335909164206 ICD Code: E66.01 - MORBID (SEVERE) OBESITY DUE TO EXCESS CALORIES Status: Acute Current Visit: No Problem List Initiated/Reviewed/Updated: Yes Orders Last 24hrs: Active Orders 24 hr Category Date Time Status Glucose [Blood Glucose Check, Bedside] [RC] QIDACANDBED Care 02/16/17 16:50 Active BASIC METABOLIC PANEL,BMP [CHEM] AM Lab 02/17/17 05:15 Ordered CBC WITH AUTO DIFF [HEME] AM Lab 02/17/17 05:15 Ordered VANCOMYCIN TROUGH [CHEM] Timed Lab 02/17/17 13:30 Ordered Insulin Aspart [NovoLOG] Med 02/16/17 17:00 Active See Protocol SUBCUT TIDAC Piperacillin/Tazobactam [Zosyn] 3.375 gm Med 02/16/17 18:00 Active Sodium Chloride 0.9% [Normal Saline] 100 ml IV Q6HR Vancomycin 1.5 gm Med 02/16/17 22:00 Active Sodium Chloride 0.9% [Normal Saline] 500 ml IV Q8HR Vancomycin Pharmacy to Dose [Pharmacy to Dose - Med 02/16/17 16:45 Pending Vancomycin] 1 dose .XX ASDIRECTED Medication Orders Acetaminophen (Tylenol) 650 mg PO Q4H PRN PRN Reason: Pain (Mild 1-3)/fever Docusate Sodium (Colace) 100 mg PO BID PRN PRN Reason: Constipation Heparin Sodium (Porcine) (Heparin Sodium) 5,000 units SUBCUT Q8HR [facility]LY Piperacillin Sod/Tazobactam (Sod 3.375 gm/ Sodium Chloride) 100 mls @ 200 mls/ hr IV Q6HR [facility]LY Vancomycin HCl 1.5 gm/ Sodium (Chloride) 500 mls @ 333.333 mls/hr IV Q8HR A[facility]LY Insulin Aspart (Novolog) 0 unit SUBCUT TIDAC ASHLY PRN Reason: Protocol Morphine Sulfate (Morphine) 1 mg IVPUSH Q2H PRN PRN Reason: Pain (severe 7-10) Multivitamins/Minerals (Vitamins And Minerals) 1 tab PO WITHBREAKFAST [facility] Nicotine (Habitrol) 14 mg TRDERM DAILY [facility] Ondansetron HCl (Zofran Odt) 4 mg PO Q6H PRN PRN Reason: nausea, able to take PO Ondansetron HCl (Zofran) 4 mg IVPUSH Q6H PRN PRN Reason: Nausea/Vomiting Oxycodone HCl (Oxycodone) 5 mg PO Q4H PRN PRN Reason: Pain (moderate 4-6) Senna/Docusate Sodium (Senna Plus) 1 tab PO BEDTIME PRN PRN Reason: Constipation Sodium Chloride (Saline Flush) 10 ml FLUSH ASDIRECTED PRN PRN Reason: Keep Vein Open Last Admin: 02/16/17 14:38 Dose: 10 ml Vancomycin HCl (Pharmacy To Dose - Vancomycin) 1 dose .XX ASDIRECTED [facility] Assessment/Plan Comment:: The patient is a 41-year-old lady with a history of morbid obesity, recurrent lower extremity cellulitis and difficult to heal wounds. Presented with nausea, fever, right lower extremity redness Right lower extremity cellulitis with sepsis The patient has signs of cellulitis on the right leg, leukocytosis, high fever, systemic symptoms with nausea Will obtain 2 sets of blood cultures There are 2 small scabs but no drainage Will treat empirically with Zosyn and vancomycin Lower extremity edema Will use lymphedema wraps to bilateral lower extremities Consult OT for lymphedema wraps Diabetes Hold metformin Use supplemental insulin as needed DVT prophylaxis with subcutaneous heparin and mobilization
[2017-02-16] MEDS: Acetaminophen 325 MG Tab PO PRN (17:45)
[2017-02-16] MEDS: oxyCODONE 5 MG Tab PO PRN (17:46)
[2017-02-16] MEDS: Insulin Aspart 100 Units/ML 3 ML Pen SUBCUT SCH (19:10)
[2017-02-16] MEDS: Piperacillin/Tazobactam 3.375 GM in Sodium Chloride 0.9% 100 ML IV SCH (20:43)
[2017-02-17] MEDS: Vancomycin 1.5 GM in Sodium Chloride 0.9% 500 ML IV SCH ×2 (00:20→08:17)
[2017-02-17] MEDS: Sodium Chloride 0.9% 10 ML Syringe FLUSH PRN ×2 (00:24→07:37)
[2017-02-17] MEDS: Heparin Sodium 5,000 Units/ML Vial SUBCUT SCH ×4 (00:42→21:54)
[2017-02-17] MEDS: Acetaminophen 325 MG Tab PO PRN ×3 (00:54→19:41)
[2017-02-17] MEDS: Piperacillin/Tazobactam 3.375 GM in Sodium Chloride 0.9% 100 ML IV SCH ×4 (02:00→17:46)
[2017-02-17] MEDS: Insulin Aspart 100 Units/ML 3 ML Pen SUBCUT SCH ×3 (08:09→17:45)
[2017-02-17] MEDS: Multivitamins, Therapeutic with Minerals Tab PO SCH (08:47)
[2017-02-17] MEDS: Nicotine 14 MG/24 Hr Patch TRDERM SCH (08:47)
[2017-02-17] MEDS ORDERED: Albuterol/Ipratropium 3.0-0.5 MG/3 ML Neb Soln NEB PRN (09:18)
[2017-02-17] MEDS ORDERED: Nystatin Ointment 15 GM Tube TOP PRN (09:19)
[2017-02-17] MEDS: oxyCODONE 5 MG Tab PO PRN ×3 (09:55→21:52)
--- NOTE | 2017-02-17 10:30 | PCM.PN ---
- General Info Date of Service: 02/17/17 Admission Dx/Problem (Free Text): Admission Diagnosis/Problem Admission Diagnosis/Problem Cellulitis Subjective Update: overnight had fever associated with chills no cp, no sob, continued to heave r. leg redness, wpain no drainage, no new wound ithcing - Review of Systems General: Reports: Fever Pulmonary: Denies: Shortness of Breath Cardiovascular: Denies: Chest Pain Gastrointestinal: Denies: Abdominal Pain Genitourinary: Denies: Dysuria - Patient Data Vitals - Most Recent: Last Vital Signs Temp 37.8 C 02/17/17 07:00 Pulse 110 H 02/17/17 07:00 Resp 20 02/17/17 07:00 BP 109/54 L 02/17/17 07:00 Pulse Ox 92 L 02/17/17 07:00 Weight - Most Recent: 161.025 kg I&O - Last 24 Hours: Intake & Output 02/16/17 02/17/17 02/17/17 22:59 06:59 14:59 Intake Total 1992 879 492 Output Total 100 400 Balance 1992 779 92 Lab Results Last 24 Hours: Laboratory Results - last 24 hr 02/16/17 02/16/17 02/17/17 Range/Units 17:19 21:25 07:08 WBC 24.8 H (5.0-10.0) 10^3/uL RBC 4.97 (4.2-5.4) 10^6/uL Hgb 12.7 (12.0-16.0) g/dL Hct 40.6 (37.0-47.0) % MCV 81.7 (80-100) fL MCH 25.6 L (27.0-34.0) pg MCHC 31.3 L (33.0-35.0) g/dL Plt Count 147 L (150-450) 10^3/uL Neut % (Auto) 97.6 H (42.2-75.2) % Lymph % (Auto) 1.3 L (20.5-50.1) % [place] % (Auto) 1.1 L (2-8) % Eos % (Auto) 0.0 L (1.0-3.0) % Baso % (Auto) 0.0 (0.0-1.0) % Sodium (135-145) mmol/L Potassium (3.6-5.0) mmol/L Chloride (101-111) mmol/L Carbon Dioxide (21.0-31.0) mmol/L Anion Gap BUN (7-18) mg/dL Creatinine (0.6-1.3) mg/dL Est Cr Clr Drug Dosing mL/min Estimated GFR (MDRD) Glucose (74-105) mg/dL POC Glucose 122 H 132 H (70-105) mg/dl Calcium (8.4-10.2) mg/dl 02/17/17 02/17/17 Range/Units 07:08 07:59 WBC (5.0-10.0) 10^3/uL RBC (4.2-5.4) 10^6/uL Hgb (12.0-16.0) g/dL Hct (37.0-47.0) % MCV (80-100) fL MCH (27.0-34.0) pg MCHC (33.0-35.0) g/dL Plt Count (150-450) 10^3/uL Neut % (Auto) (42.2-75.2) % Lymph % (Auto) (20.5-50.1) % [place] % (Auto) (2-8) % Eos % (Auto) (1.0-3.0) % Baso % (Auto) (0.0-1.0) % Sodium 138 (135-145) mmol/L Potassium 4.4 (3.6-5.0) mmol/L Chloride 105 (101-111) mmol/L Carbon Dioxide 21.0 (21.0-31.0) mmol/L Anion Gap 16.4 BUN 24 H (7-18) mg/dL Creatinine 2.1 H (0.6-1.3) mg/dL Est Cr Clr Drug Dosing 28.87 mL/min Estimated GFR (MDRD) 26 Glucose 115 H (74-105) mg/dL POC Glucose 117 H (70-105) mg/dl Calcium 7.7 L (8.4-10.2) mg/dl Med Orders - Current: Current Medications Acetaminophen (Tylenol) 650 mg PO Q4H PRN PRN Reason: Pain (Mild 1-3)/fever Last Admin: 02/17/17 00:54 Dose: 650 mg Albuterol/Ipratropium (Duoneb 3.0-0.5 Mg/3 Ml) 3 ml NEB Q6HRRT PRN PRN Reason: sob, wheezing Docusate Sodium (Colace) 100 mg PO BID PRN PRN Reason: Constipation Heparin Sodium (Porcine) (Heparin Sodium) 5,000 units SUBCUT Q8HR [facility] Last Admin: 02/17/17 09:14 Dose: 5,000 units Piperacillin Sod/Tazobactam (Sod 3.375 gm/ Sodium Chloride) 100 mls @ 200 mls/ hr IV Q6HR [facility] Last Admin: 02/17/17 07:35 Dose: 200 mls/hr Sodium Chloride (Normal Saline) 1,000 mls @ 100 mls/hr IV ASDIRECTED [facility] Daptomycin 500 mg/ Sodium (Chloride) 50 mls @ 50 mls/hr IV Q24H [facility] Insulin Aspart (Novolog) 0 unit SUBCUT TIDAC [facility] PRN Reason: Protocol Last Admin: 02/17/17 08:09 Dose: Not Given Morphine Sulfate (Morphine) 1 mg IVPUSH Q2H PRN PRN Reason: Pain (severe 7-10) Multivitamins/Minerals (Vitamins And Minerals) 1 tab PO WITHBREAKFAST [facility] Last Admin: 02/17/17 08:47 Dose: 1 tab Nicotine (Habitrol) 14 mg TRDERM DAILY [facility] Last Admin: 02/17/17 08:47 Dose: 14 mg Nystatin (Nystatin Ointment) 1 gm TOP BID PRN PRN Reason: redness Ondansetron HCl (Zofran Odt) 4 mg PO Q6H PRN PRN Reason: nausea, able to take PO Ondansetron HCl (Zofran) 4 mg IVPUSH Q6H PRN PRN Reason: Nausea/Vomiting Oxycodone HCl (Oxycodone) 5 mg PO Q4H PRN PRN Reason: Pain (moderate 4-6) Last Admin: 02/17/17 09:55 Dose: 5 mg Senna/Docusate Sodium (Senna Plus) 1 tab PO BEDTIME PRN PRN Reason: Constipation Sodium Chloride (Saline Flush) 10 ml FLUSH ASDIRECTED PRN PRN Reason: Keep Vein Open Last Admin: 02/17/17 07:37 Dose: 10 ml Discontinued Medications Diphenhydramine HCl (Benadryl) 25 mg IVPUSH ONETIME ONE Stop: 02/16/17 12:09 Last Admin: 02/16/17 12:40 Dose: 25 mg Sodium Chloride (Normal Saline) 1,000 mls @ 999 mls/hr IV .BOLUS ONE Stop: 02/16/17 12:51 Last Admin: 02/16/17 12:37 Dose: 999 mls/hr Vancomycin HCl 2 gm/ Sodium (Chloride) 500 mls @ 333.333 mls/hr IV ONETIME ONE Stop: 02/16/17 15:29 Last Admin: 02/16/17 15:09 Dose: 333.333 mls/hr Piperacillin Sod/Tazobactam (Sod 4.5 gm/ Sodium Chloride) 100 mls @ 200 mls/hr IV ONETIME ONE Stop: 02/16/17 13:44 Last Admin: 02/16/17 14:38 Dose: 200 mls/hr Clindamycin Phosphate 900 mg/ (Sodium Chloride) 106 mls @ 200 mls/hr IV ONETIME ONE Stop: 02/16/17 14:57 Last Admin: 02/16/17 17:34 Dose: Not Given Sodium Chloride (Normal Saline) 1,000 mls @ 999 mls/hr IV .BOLUS ONE Stop: 02/16/17 15:26 Last Infusion: 02/16/17 18:03 Dose: Infused Piperacillin Sod/Tazobactam (Sod 3.375 gm/ Sodium Chloride) 100 mls @ 200 mls/ hr IV Q6H [facility] Vancomycin HCl 1.5 gm/ Sodium (Chloride) 500 mls @ 333.333 mls/hr IV Q8HR [facility] Last Admin: 02/17/17 08:17 Dose: 333.333 mls/hr Metronidazole (Metronidazole) 2,000 mg PO ONETIME ONE Stop: 02/16/17 15:14 Last Admin: 02/16/17 16:00 Dose: 2,000 mg Morphine Sulfate (Morphine) 4 mg IVPUSH ONETIME ONE Stop: 02/16/17 11:52 Last Admin: 02/16/17 12:38 Dose: 4 mg Morphine Sulfate (Morphine) 4 mg IVPUSH ONETIME ONE Stop: 02/16/17 14:08 Last Admin: 02/16/17 15:57 Dose: 4 mg Ondansetron HCl (Zofran) 4 mg IV ONETIME ONE Stop: 02/16/17 11:52 Last Admin: 02/16/17 12:39 Dose: 4 mg Piperacillin Sod/Tazobactam Sod (Zosyn) Confirm Administered Dose 3.375 gm .ROUTE .STK-MED ONE Stop: 02/16/17 17:39 Last Admin: 02/16/17 18:03 Dose: Not Given Piperacillin Sod/Tazobactam Sod (Zosyn) Confirm Administered Dose 3.375 gm .ROUTE .STK-MED ONE Stop: 02/16/17 17:42 Last Admin: 02/16/17 18:03 Dose: Not Given Piperacillin Sod/Tazobactam Sod (Zosyn) Confirm Administered Dose 3.375 gm .ROUTE .STK-MED ONE Stop: 02/17/17 00:31 Last Admin: 02/17/17 00:59 Dose: Not Given Piperacillin Sod/Tazobactam Sod (Zosyn) Confirm Administered Dose 3.375 gm .ROUTE .STK-MED ONE Stop: 02/17/17 05:41 Last Admin: 02/17/17 08:59 Dose: Not Given Vancomycin HCl (Pharmacy To Dose - Vancomycin) 1 dose .XX ONETIME ONE Stop: 02/16/17 16:25 Last Admin: 02/17/17 01:00 Dose: Not Given Vancomycin HCl (Pharmacy To Dose - Vancomycin) 1 dose .XX ASDIRECTED [facility] Vancomycin HCl (Pharmacy To Dose - Vancomycin) 1 dose .XX ASDIRECTED [facility] Vancomycin HCl (Pharmacy To Dose - Vancomycin) 1 dose .XX ASDIRECTED [facility] - Exam General: Alert, Oriented Neck: Supple Lungs: Clear to Auscultation, Normal Respiratory Effort Cardiovascular: Regular Rate, Regular Rhythm GI/Abdominal Exam: Other (morbidly obese) Extremities: Pedal Edema (b/l) Skin: Warm, Dry, Other (r. leg with erythema, 2 small scabbed wound, no drainage , left leg with chronic venous stasis changes) - Problem List & Annotations (1) Diabetes SNOMED Code(s): 00591141 Code(s): E11.9 - TYPE 2 DIABETES MELLITUS WITHOUT COMPLICATIONS Status: Acute Current Visit: Yes (2) Cellulitis of right lower extremity SNOMED Code(s): 262157589 Code(s): L03.115 - CELLULITIS OF RIGHT LOWER LIMB Status: Acute Current Visit: Yes (3) Morbid obesity SNOMED Code(s): 350896781, 15858372746236 Code(s): E66.01 - MORBID (SEVERE) OBESITY DUE TO EXCESS CALORIES Status: Acute Current Visit: No - Problem List Review Problem List Initiated/Reviewed/Updated: Yes - My Orders Last 24 Hours: My Active Orders 02/16/17 16:50 Glucose [Blood Glucose Check, Bedside] [RC] QIDACANDBED 02/16/17 17:00 Insulin Aspart [NovoLOG] See Protocol SUBCUT TIDAC 02/16/17 17:06 OT Evaluation and Treatment [CONS] Routine 02/16/17 18:00 Piperacillin/Tazobactam [Zosyn] 3.375 gm Sodium Chloride 0.9% [Normal Saline] 100 ml IV Q6HR 02/17/17 09:18 RT Aerosol Therapy [RC] ASDIRECTED Albuterol/Ipratropium [DuoNeb 3.0-0.5 MG/3 ML] 3 ml NEB Q6HRRT PRN 02/17/17 09:19 Nystatin [Nystatin Ointment] 1 gm TOP BID PRN 02/17/17 09:30 Sodium Chloride 0.9% [Normal Saline] 1,000 ml IV ASDIRECTED 02/17/17 10:00 DAPTOmycin [Cubicin] 500 mg Sodium Chloride 0.9% [Normal Saline] 50 ml IV Q24H 02/17/17 13:30 VANCOMYCIN TROUGH [CHEM] Timed 02/18/17 05:15 BASIC METABOLIC PANEL,BMP [CHEM] AM CBC WITH AUTO DIFF [HEME] AM - Plan Plan:: The patient is a 41-year-old lady with a history of morbid obesity, recurrent lower extremity cellulitis and difficult to heal wounds. Presented with nausea, fever, right lower extremity redness Right lower extremity cellulitis with sepsis The patient has signs of cellulitis on the right leg, leukocytosis, high fever, systemic symptoms with nausea blood cultures: pending There are 2 small scabs but no drainage Will treat empirically with Zosyn stop vanc due to ARF start dapto check cpk in am acute renal failure might be from Vanc give IVF stop vanc follow renal function and electrolytes Lower extremity edema Will use lymphedema wraps to bilateral lower extremities Consult OT for lymphedema wraps Diabetes Hold metformin Use supplemental insulin as needed DVT prophylaxis with subcutaneous heparin and mobilization
[2017-02-17] MEDS: DAPTOmycin 500 MG in Sodium Chloride 0.9% 50 ML IV SCH (10:50)
[2017-02-17] MEDS: Sodium Chloride 0.9% 1,000 ML IV SCH ×2 (12:11→22:12)
[2017-02-17] MEDS ORDERED: Ibuprofen 400 MG Tab PO ONE (21:38)
[2017-02-18] MEDS: Piperacillin/Tazobactam 3.375 GM in Sodium Chloride 0.9% 100 ML IV SCH ×2 (00:29→06:20)
[2017-02-18] MEDS: oxyCODONE 5 MG Tab PO PRN ×2 (03:56→10:07)
[2017-02-18] MEDS: Sodium Chloride 0.9% 1,000 ML IV SCH ×2 (04:27→12:49)
[2017-02-18] MEDS: Heparin Sodium 5,000 Units/ML Vial SUBCUT SCH (06:24)
[2017-02-18] MEDS: Insulin Aspart 100 Units/ML 3 ML Pen SUBCUT SCH ×2 (08:12→12:48)
[2017-02-18] MEDS: Multivitamins, Therapeutic with Minerals Tab PO SCH ×2 (09:29→10:11)
[2017-02-18] MEDS: Nicotine 14 MG/24 Hr Patch TRDERM SCH ×2 (09:30→10:10)
[2017-02-18] MEDS: DAPTOmycin 500 MG in Sodium Chloride 0.9% 50 ML IV SCH (10:54)
[2017-02-18] MEDS ORDERED: Calcium Carbonate 500 MG Tab.Chew PO PRN (11:15)
--- NOTE | 2017-02-18 12:23 | PCM.DCSUM1 ---
Discharge Summary - Hospital Course Free Text/Narrative:: The patient is a 41-year-old lady with a history of morbid obesity, recurrent lower extremity cellulitis and difficult to heal wounds. Presented with nausea, fever, right lower extremity redness Right lower extremity cellulitis with sepsis The patient has signs of cellulitis on the right leg, leukocytosis, high fever, systemic symptoms with nausea blood cultures: pending -neg for now MRI showed no abscess initially there were 2 small scabs but no drainage developed blisters on admission received vanc, zosyn due to acute renal failure stopped vanc started dapto follow cpk periodically acute renal failure might be from Vanc treated with IVF stop vanc follow renal function and electrolytes transfer to [facility] for nephro eval Lower extremity edema Will use lymphedema wraps to bilateral lower extremities consulted OT for lymphedema wraps Diabetes Hold metformin Use supplemental insulin as needed - Discharge Data Discharge Date: 02/18/17 Discharge Disposition: DC/Tfer to Acute Hospital 02 Condition: Serious - Discharge Diagnosis/Problem(s) (1) Diabetes SNOMED Code(s): 68419978 ICD Code: E11.9 - TYPE 2 DIABETES MELLITUS WITHOUT COMPLICATIONS Status: Acute Current Visit: Yes (2) Cellulitis of right lower extremity SNOMED Code(s): 371449082 ICD Code: L03.115 - CELLULITIS OF RIGHT LOWER LIMB Status: Acute Current Visit: Yes (3) Morbid obesity SNOMED Code(s): 988781963, 56974558888735 ICD Code: E66.01 - MORBID (SEVERE) OBESITY DUE TO EXCESS CALORIES Status: Acute Current Visit: No - Patient Summary/Data Consults: Consultations 02/16/17 17:06 OT Evaluation and Treatment [CONS] Routine - Patient Instructions Diet: Diabetic Diet Activity: As Tolerated - Discharge Plan Home Medications: Home Meds DAPTOmycin [Cubicin] 500 mg IV Q24H vial 02/18/17 [Rx] Insulin Aspart [NovoLOG] 0 unit SUBCUT TIDAC pen 02/18/17 [Rx] Morphine 1 mg IVPUSH Q2H PRN #0 syringe 02/18/17 [Rx] Nicotine [Habitrol] 14 mg TRDERM DAILY patch 02/18/17 [Rx] Piperacillin/Tazobactam [Zosyn] 3.375 gm IV Q6HR vial 02/18/17 [Rx] Sodium Chloride 0.9% [Normal Saline] 200 ml IV .Q1H #0 bag 02/18/17 [Rx] oxyCODONE 5 mg PO Q4H PRN #0 tablet 02/18/17 [Rx] - Discharge Summary/Plan Comment DC Time >30 min.: Yes (called [facility] for Tx, d/ dr. Encinas, filled out ambulance forms) - Patient Data Vitals - Most Recent: Last Vital Signs Temp 36.6 C 02/18/17 07:00 Pulse 98 02/18/17 07:00 Resp 20 02/18/17 07:00 BP 105/49 L 02/18/17 07:00 Pulse Ox 92 L 02/18/17 07:00 Weight - Most Recent: 161.025 kg I&O - Last 24 hours: Intake & Output 02/17/17 02/18/17 02/18/17 22:59 06:59 14:59 Intake Total 1613 316 105 Output Total 300 250 Balance 1313 66 105 Lab Results - Last 24 hrs: Laboratory Results - last 24 hr 02/17/17 02/17/17 02/18/17 Range/Units 17:11 21:03 06:28 WBC 21.7 H (5.0-10.0) 10^3/uL RBC 4.51 (4.2-5.4) 10^6/uL Hgb 11.5 L (12.0-16.0) g/dL Hct 37.0 (37.0-47.0) % MCV 82.0 (80-100) fL MCH 25.5 L (27.0-34.0) pg MCHC 31.1 L (33.0-35.0) g/dL Plt Count 124 L (150-450) 10^3/uL Neut % (Auto) 95.9 H (42.2-75.2) % Lymph % (Auto) 2.3 L (20.5-50.1) % [place] % (Auto) 1.6 L (2-8) % Eos % (Auto) 0.1 L (1.0-3.0) % Baso % (Auto) 0.1 (0.0-1.0) % Add Manual Diff Sodium (135-145) mmol/L Potassium (3.6-5.0) mmol/L Chloride (101-111) mmol/L Carbon Dioxide (21.0-31.0) mmol/L Anion Gap BUN (7-18) mg/dL Creatinine (0.6-1.3) mg/dL Est Cr Clr Drug Dosing mL/min Estimated GFR (MDRD) Glucose (74-105) mg/dL POC Glucose 189 H 123 H (70-105) mg/dl Calcium (8.4-10.2) mg/dl Creatine Kinase (26-174) IU/L 02/18/17 02/18/17 02/18/17 Range/Units 06:28 07:49 11:07 WBC (5.0-10.0) 10^3/uL RBC (4.2-5.4) 10^6/uL Hgb (12.0-16.0) g/dL Hct (37.0-47.0) % MCV (80-100) fL MCH (27.0-34.0) pg MCHC (33.0-35.0) g/dL Plt Count (150-450) 10^3/uL Neut % (Auto) (42.2-75.2) % Lymph % (Auto) (20.5-50.1) % [place] % (Auto) (2-8) % Eos % (Auto) (1.0-3.0) % Baso % (Auto) (0.0-1.0) % Add Manual Diff Sodium 140 (135-145) mmol/L Potassium 3.7 (3.6-5.0) mmol/L Chloride 110 (101-111) mmol/L Carbon Dioxide 20.0 L (21.0-31.0) mmol/L Anion Gap 13.7 BUN 31 H (7-18) mg/dL Creatinine 3.3 H (0.6-1.3) mg/dL Est Cr Clr Drug Dosing 18.37 mL/min Estimated GFR (MDRD) 15 Glucose 114 H (74-105) mg/dL POC Glucose 119 H 183 H (70-105) mg/dl Calcium 7.4 L (8.4-10.2) mg/dl Creatine Kinase 146 (26-174) IU/L Med Orders - Current: Current Medications Acetaminophen (Tylenol) 650 mg PO Q4H PRN PRN Reason: Pain (Mild 1-3)/fever Last Admin: 02/17/17 19:41 Dose: 650 mg Albuterol/Ipratropium (Duoneb 3.0-0.5 Mg/3 Ml) 3 ml NEB Q6HRRT PRN PRN Reason: sob, wheezing Calcium Carbonate/Glycine (Tums) 500 mg PO Q2H PRN PRN Reason: gastric upset Docusate Sodium (Colace) 100 mg PO BID PRN PRN Reason: Constipation Heparin Sodium (Porcine) (Heparin Sodium) 5,000 units SUBCUT Q8HR [facility] Last Admin: 02/18/17 06:24 Dose: 5,000 units Sodium Chloride (Normal Saline) 1,000 mls @ 200 mls/hr IV ASDIRECTED [facility] Last Admin: 02/18/17 04:27 Dose: 200 mls/hr Daptomycin 500 mg/ Sodium (Chloride) 50 mls @ 50 mls/hr IV Q24H [facility] Last Admin: 02/18/17 10:54 Dose: 50 mls/hr Piperacillin Sod/Tazobactam (Sod 3.375 gm/ Sodium Chloride) 100 mls @ 200 mls/ hr IV Q6HR [facility] Last Infusion: 02/18/17 07:14 Dose: Infused Insulin Aspart (Novolog) 0 unit SUBCUT TIDAC [facility] PRN Reason: Protocol Last Admin: 02/18/17 08:12 Dose: Not Given Morphine Sulfate (Morphine) 1 mg IVPUSH Q2H PRN PRN Reason: Pain (severe 7-10) Multivitamins/Minerals (Vitamins And Minerals) 1 tab PO WITHBREAKFAST [facility] Last Admin: 02/18/17 10:11 Dose: 1 tab Nicotine (Habitrol) 14 mg TRDERM DAILY [facility] Last Admin: 02/18/17 10:10 Dose: 14 mg Nystatin (Nystatin Ointment) 1 gm TOP BID PRN PRN Reason: redness Last Admin: 02/17/17 10:55 Dose: 1 applic Ondansetron HCl (Zofran Odt) 4 mg PO Q6H PRN PRN Reason: nausea, able to take PO Last Admin: 02/17/17 22:40 Dose: 4 mg Ondansetron HCl (Zofran) 4 mg IVPUSH Q6H PRN PRN Reason: Nausea/Vomiting Oxycodone HCl (Oxycodone) 5 mg PO Q4H PRN PRN Reason: Pain (moderate 4-6) Last Admin: 02/18/17 10:07 Dose: 5 mg Senna/Docusate Sodium (Senna Plus) 1 tab PO BEDTIME PRN PRN Reason: Constipation Sodium Chloride (Saline Flush) 10 ml FLUSH ASDIRECTED PRN PRN Reason: Keep Vein Open Last Admin: 02/17/17 07:37 Dose: 10 ml Discontinued Medications Diphenhydramine HCl (Benadryl) 25 mg IVPUSH ONETIME ONE Stop: 02/16/17 12:09 Last Admin: 02/16/17 12:40 Dose: 25 mg Sodium Chloride (Normal Saline) 1,000 mls @ 999 mls/hr IV .BOLUS ONE Stop: 02/16/17 12:51 Last Admin: 02/16/17 12:37 Dose: 999 mls/hr Vancomycin HCl 2 gm/ Sodium (Chloride) 500 mls @ 333.333 mls/hr IV ONETIME ONE Stop: 02/16/17 15:29 Last Admin: 02/16/17 15:09 Dose: 333.333 mls/hr Piperacillin Sod/Tazobactam (Sod 4.5 gm/ Sodium Chloride) 100 mls @ 200 mls/hr IV ONETIME ONE Stop: 02/16/17 13:44 Last Admin: 02/16/17 14:38 Dose: 200 mls/hr Clindamycin Phosphate 900 mg/ (Sodium Chloride) 106 mls @ 200 mls/hr IV ONETIME ONE Stop: 02/16/17 14:57 Last Admin: 02/16/17 17:34 Dose: Not Given Sodium Chloride (Normal Saline) 1,000 mls @ 999 mls/hr IV .BOLUS ONE Stop: 02/16/17 15:26 Last Infusion: 02/16/17 18:03 Dose: Infused Piperacillin Sod/Tazobactam (Sod 3.375 gm/ Sodium Chloride) 100 mls @ 200 mls/ hr IV Q6H [facility] Piperacillin Sod/Tazobactam (Sod 3.375 gm/ Sodium Chloride) 100 mls @ 200 mls/ hr IV Q6HR [facility] Last Admin: 02/17/17 07:35 Dose: 200 mls/hr Vancomycin HCl 1.5 gm/ Sodium (Chloride) 500 mls @ 333.333 mls/hr IV Q8HR [facility] Last Admin: 02/17/17 08:17 Dose: 333.333 mls/hr Ibuprofen (Motrin) 400 mg PO ONETIME ONE Stop: 02/17/17 21:39 Last Admin: 02/17/17 21:51 Dose: 400 mg Metronidazole (Metronidazole) 2,000 mg PO ONETIME ONE Stop: 02/16/17 15:14 Last Admin: 02/16/17 16:00 Dose: 2,000 mg Morphine Sulfate (Morphine) 4 mg IVPUSH ONETIME ONE Stop: 02/16/17 11:52 Last Admin: 02/16/17 12:38 Dose: 4 mg Morphine Sulfate (Morphine) 4 mg IVPUSH ONETIME ONE Stop: 02/16/17 14:08 Last Admin: 02/16/17 15:57 Dose: 4 mg Ondansetron HCl (Zofran) 4 mg IV ONETIME ONE Stop: 02/16/17 11:52 Last Admin: 02/16/17 12:39 Dose: 4 mg Piperacillin Sod/Tazobactam Sod (Zosyn) Confirm Administered Dose 3.375 gm .ROUTE .STK-MED ONE Stop: 02/16/17 17:39 Last Admin: 02/16/17 18:03 Dose: Not Given Piperacillin Sod/Tazobactam Sod (Zosyn) Confirm Administered Dose 3.375 gm .ROUTE .STK-MED ONE Stop: 02/16/17 17:42 Last Admin: 02/16/17 18:03 Dose: Not Given Piperacillin Sod/Tazobactam Sod (Zosyn) Confirm Administered Dose 3.375 gm .ROUTE .STK-MED ONE Stop: 02/17/17 00:31 Last Admin: 02/17/17 00:59 Dose: Not Given Piperacillin Sod/Tazobactam Sod (Zosyn) Confirm Administered Dose 3.375 gm .ROUTE .STK-MED ONE Stop: 02/17/17 05:41 Last Admin: 02/17/17 08:59 Dose: Not Given Vancomycin HCl (Pharmacy To Dose - Vancomycin) 1 dose .XX ONETIME ONE Stop: 02/16/17 16:25 Last Admin: 02/17/17 01:00 Dose: Not Given Vancomycin HCl (Pharmacy To Dose - Vancomycin) 1 dose .XX ASDIRECTED [facility] Vancomycin HCl (Pharmacy To Dose - Vancomycin) 1 dose .XX ASDIRECTED [facility] Vancomycin HCl (Pharmacy To Dose - Vancomycin) 1 dose .XX ASDIRECTED [facility] *Q Meaningful Use (DIS) - VTE *Q VTE Criteria *Q: - Stroke *Q Stroke Criteria *Q: - AMI *Q AMI Criteria *Q:
[2017-02-18 13:01] VITALS: BP 101/72
== END 2017-02-18 13:15 | DRG 872 ==
LOC: DL.ED 11:08 → DL.MS 16:27 → DL.ED 16:30
PROVIDERS: ADMIT Internal Medicine; ATTEND Internal Medicine
DX: A41.9 Sepsis, unspecified organism (principal); L03.115 Cellulitis of right lower limb; Z68.44 Body mass index [BMI] 60.0-69.9, adult; N17.9 Acute kidney failure, unspecified; E11.9 Type 2 diabetes mellitus without complications; E66.01 Morbid (severe) obesity due to excess calories; I87.8 Other specified disorders of veins; R60.9 Edema, unspecified; R11.2 Nausea with vomiting, unspecified; F17.210 Nicotine dependence, cigarettes, uncomplicated; Z79.4 Long term (current) use of insulin; Z79.84 Long term (current) use of oral hypoglycemic drugs; Z86.14 Personal history of Methicillin resistant Staphylococcus aureus infection; Z79.899 Other long term (current) drug therapy; Z88.8 Allergy status to other drugs, medicaments and biological substances
CPT/HCPCS: 36415; 73718-RT; 80048; 80053; 80305; 81001; 81025; 82550; 82962; 83605; 85025; 86140; 87040; 96365; 96375; 96376; 97165-GO; 99284; A9270-GY; J0878; J1200; J1644; J1815-GY; J2270; J2405; J2543; J3370; J7030; J7040; J7050

== ENCOUNTER 2017-03-17 01:45 | Emergency (ER) | payer OTHER, SELFPAY ==
[2017-03-17 02:00] VITALS: BP 146/90
--- NOTE | 2017-03-17 03:04 | EDM.PDOC ---
ED HPI GENERAL MEDICAL PROBLEM - General Chief Complaint: Upper Extremity Injury/Pain Stated Complaint: ARMS HURT Time Seen by Provider: 03/17/17 02:56 Source of Information: Reports: Patient History Limitations: Reports: No Limitations - History of Present Illness INITIAL COMMENTS - FREE TEXT/NARRATIVE: C/O pain to bilateral lower arms after pulling self into truck and carrying groceries. Notes has not had mush activity since injury to foot. Bilateral Upper Arm Pain Score (Numeric/FACES): 5 - Related Data Allergies Allergy/AdvReac Type Severity Reaction Status Date / Time codeine Allergy Hives Verified 03/17/17 02:00 propoxyphene napsylate Allergy Rash Verified 03/17/17 02:00 [From [facility]-N 100] Home Meds: Home Meds DAPTOmycin [Cubicin] 500 mg IV Q24H vial 02/18/17 [Rx] Insulin Aspart [NovoLOG] 0 unit SUBCUT TIDAC pen 02/18/17 [Rx] Morphine 1 mg IVPUSH Q2H PRN #0 syringe 02/18/17 [Rx] Nicotine [Habitrol] 14 mg TRDERM DAILY patch 02/18/17 [Rx] Piperacillin/Tazobactam [Zosyn] 3.375 gm IV Q6HR vial 02/18/17 [Rx] Sodium Chloride 0.9% [Normal Saline] 200 ml IV .Q1H #0 bag 02/18/17 [Rx] oxyCODONE 5 mg PO Q4H PRN #0 tablet 02/18/17 [Rx] Doxycycline [Vibramycin] 100 mg PO BID 03/17/17 [History] Past Medical History HEENT History: Reports: None Cardiovascular History: Reports: Other (See Below) Other Cardiovascular History: edema with chronic venous stasis Respiratory History: Reports: Asthma Gastrointestinal History: Reports: None Genitourinary History: Reports: None PRODUCTION TECHNOLOGIST History: Reports: Musculoskeletal History: Reports: None Neurological History: Reports: Headaches, Chronic Psychiatric History: Reports: None Endocrine/Metabolic History: Reports: Diabetes, Type II, Obesity/BMI 30+ Hematologic History: Reports: None Immunologic History: Reports: None Oncologic (Cancer) History: Reports: None Dermatologic History: Reports: Cellulitis, Venous Stasis Dermatitis - Infectious Disease History Infectious Disease History: Reports: MRSA - Past Surgical History HEENT Surgical History: Reports: Tonsillectomy Cardiovascular Surgical History: Reports: None Respiratory Surgical History: Reports: None GI Surgical History: Reports: Appendectomy, Cholecystectomy Female Surgical History: Reports: Section Neurological Surgical History: Reports: None Musculoskeletal Surgical History: Reports: None Social & Family History - Family History Family Medical History: Noncontributory - Tobacco Use Smoking Status *Q: Current Every Day Smoker Years of Tobacco use: 28 Packs/Tins Daily: 3 Used Tobacco, but Quit: No Second Hand Smoke Exposure: No - Caffeine Use Caffeine Use: Reports: Soda, Tea - Alcohol Use Days Per Week of Alcohol Use: 0 - Recreational Drug Use Recreational Drug Use: No - Living Situation & Occupation Living situation: Reports: with Family Occupation: Disabled Review of Systems - Review of Systems Review Of Systems: ROS reveals no pertinent complaints other than HPI. ED EXAM, GENERAL - Physical Exam Exam: See Below Exam Limited By: No Limitations General Appearance: Alert, Mild Distress, Obese (morbid) Eye Exam: Bilateral Eye: EOMI Ears: Normal External Exam Nose: Normal Inspection Throat/Mouth: Normal Oropharynx Head: Atraumatic Neck: Normal Inspection Respiratory/Chest: No Respiratory Distress, Lungs Clear Cardiovascular: Normal Peripheral Pulses, Regular Rate, Rhythm Extremities: Normal Inspection, Normal Range of Motion, Arm Pain (Bilateral tenderness with palpation of muscles in forearms, right greater than left), Other (no swelling or reddness to upper extremities. Strong radial pulses bilaterally). No: Joint Swelling, Limited Range of Motion, Increased Warmth Neurological: Alert, Oriented, Normal Cognition Psychiatric: Normal Affect Skin Exam: Warm, Dry, Intact, Normal Color Course - Vital Signs Last Recorded V/S: Last Vital Signs Temp 95.8 F 03/17/17 01:49 Pulse 102 H 03/17/17 01:49 Resp 21 H 03/17/17 01:49 BP 146/90 H 03/17/17 01:49 Pulse Ox 99 03/17/17 01:49 Departure - Departure Time of Disposition: 03:04 Disposition: Home, Self-Care 01 Condition: Good Clinical Impression: Muscle strain - Discharge Information Instructions: Muscle Strain, [id number] Additional Instructions: alternate warm and cold pack to arms continue light activity, with movement of arms at least every hour while awake may use bengay or similar continue tramadol as ordered by primary care. may take one tylenol with tramadol follow up in clinic if not improving
== END 2017-03-17 03:09 | disposition home or self-care (01) ==
LOC: DL.ED 01:45
DX: S56.911A Strain of unspecified muscles, fascia and tendons at forearm level, right arm, initial encounter (principal); S56.912A Strain of unspecified muscles, fascia and tendons at forearm level, left arm, initial encounter; E11.9 Type 2 diabetes mellitus without complications; J45.909 Unspecified asthma, uncomplicated; F17.210 Nicotine dependence, cigarettes, uncomplicated; E66.9 Obesity, unspecified; Z68.43 Body mass index [BMI] 50.0-59.9, adult; Z88.5 Allergy status to narcotic agent; Z90.49 Acquired absence of other specified parts of digestive tract; Z98.890 Other specified postprocedural states; Z79.899 Other long term (current) drug therapy; Z79.4 Long term (current) use of insulin; Z88.8 Allergy status to other drugs, medicaments and biological substances; X50.9XXA Other and unspecified overexertion or strenuous movements or postures, initial encounter
CPT/HCPCS: 99283

== ENCOUNTER 2018-01-19 12:50 | Emergency (ER) | payer SELFPAY ==
--- NOTE | 2018-01-19 13:02 | EDM.PDOC ---
ED HPI GENERAL MEDICAL PROBLEM - General Chief Complaint: Respiratory Problem Stated Complaint: [id number] SICK Time Seen by Provider: 01/19/18 13:01 Source of Information: Reports: Patient, Old Records, RN, RN Notes Reviewed History Limitations: Reports: No Limitations - History of Present Illness INITIAL COMMENTS - FREE TEXT/NARRATIVE: Pt presents to ER from home by POV with c/o 6 days of cough, wheezing, shortness of breath, and fevers. Pt states the cough is non-productive, but sounds wet. Denies Hx of asthma. Pt is a smoker. Pt's had a sore throat and upper resp. illness 2 weeks ago, but got better without any treatment. Pt denies sore throat or congestion. Pt denies chest pain, palpitations, orthopnea , or edema. Onset: Gradual Onset Date: 01/14/18 Duration: Constant, Getting Worse Location: Reports: Chest Severity: Severe Improves with: Reports: None Worsens with: Reports: None Associated Symptoms: Reports: No Other Symptoms - Related Data Allergies Allergy/AdvReac Type Severity Reaction Status Date / Time codeine Allergy Hives Verified 01/19/18 13:17 propoxyphene napsylate Allergy Rash Verified 01/19/18 13:17 [From Darvocet-N 100] Home Meds: Home Meds . [No Known Home Meds] 01/19/18 [History] Past Medical History HEENT History: Reports: None Cardiovascular History: Reports: Other (See Below) Other Cardiovascular History: edema with chronic venous stasis Respiratory History: Reports: Asthma Gastrointestinal History: Reports: None Genitourinary History: Reports: None [employer] HAND History: Reports: Musculoskeletal History: Reports: None Neurological History: Reports: Headaches, Chronic Psychiatric History: Reports: None Endocrine/Metabolic History: Reports: Diabetes, Type II, Obesity/BMI 30+ Hematologic History: Reports: None Immunologic History: Reports: None Oncologic (Cancer) History: Reports: None Dermatologic History: Reports: Cellulitis, Venous Stasis Dermatitis, Other (See Below) (Hirsutism) - Infectious Disease History Infectious Disease History: Reports: MRSA - Past Surgical History HEENT Surgical History: Reports: Tonsillectomy Cardiovascular Surgical History: Reports: None Respiratory Surgical History: Reports: None GI Surgical History: Reports: Appendectomy, Cholecystectomy Female Surgical History: Reports: Section Neurological Surgical History: Reports: None Musculoskeletal Surgical History: Reports: None Social & Family History - Family History Family Medical History: Noncontributory - Tobacco Use Smoking Status *Q: Current Every Day Smoker Tobacco Use Within Last Twelve Months: Cigarettes Years of Tobacco use: 20 Packs/Tins Daily: 1 Second Hand Smoke Exposure: Yes - Caffeine Use Caffeine Use: Reports: Soda, Tea - Living Situation & Occupation Living situation: Reports: , with Family Occupation: Disabled ED ROS GENERAL - Review of Systems Review Of Systems: ROS reveals no pertinent complaints other than HPI. ED EXAM, GENERAL - Physical Exam Exam: See Below Exam Limited By: No Limitations General Appearance: Alert, Mild Distress, Obese Eye Exam: Bilateral Eye: Normal Inspection Ears: Normal External Exam, Hearing Grossly Normal Nose: Normal Inspection, Normal Mucosa, No Blood Throat/Mouth: Normal Lips, Normal Oropharynx, Normal Voice, No Airway Compromise Head: Atraumatic, Normocephalic Neck: Normal Inspection, Supple, Non-Tender, Full Range of Motion. No: Lymphadenopathy (L), Lymphadenopathy (R) Respiratory/Chest: No Accessory Muscle Use, Respiratory Distress, Decreased Breath Sounds, Crackles, Rhonchi (Rt base), Wheezing (tight wheezing) Cardiovascular: Regular Rate, Rhythm, Tachycardia GI/Abdominal: Normal Bowel Sounds, Soft, Non-Tender, No Distention, Other ( benign obese abdomen) (Female) Exam: Deferred Rectal (Female) Exam: Deferred Back Exam: Normal Inspection Extremities: Normal Range of Motion, Normal Capillary Refill, Pedal Edema. No: Joint Swelling Neurological: Alert, Oriented, Normal Cognition, Normal Gait, No Motor/Sensory Deficits Psychiatric: Normal Affect, Normal Mood Skin Exam: Warm, Dry, Intact, Other (chronic lower ext. venous stasis) Course - Vital Signs Last Recorded V/S: Last Vital Signs Temp 38.8 C H 01/19/18 13:00 Pulse 136 H 01/19/18 13:19 Resp 23 H 01/19/18 13:00 BP 157/107 H 01/19/18 13:00 Pulse Ox 92 L 01/19/18 13:19 - Orders/Labs/Meds Orders: Active Orders 24 hr Category Date Time Status Peripheral IV Care [RC] . DIRECTED Care 01/19/18 13:20 Active RT Aerosol Therapy [RC] ASDIRECTED Care 01/19/18 13:19 Active RT Aerosol Therapy [RC] ASDIRECTED Care 01/19/18 14:53 Active RT BiPAP/CPAP [RC] STAT Care 01/19/18 14:59 Ordered CULTURE BLOOD [BC] Stat Lab 01/19/18 13:34 Received CULTURE BLOOD [BC] Stat Lab 01/19/18 13:41 Results HCG QUALITATIVE,URINE [URCHEM] Stat Lab 01/19/18 13:20 Ordered UA W/MICROSCOPIC [URIN] Stat Lab 01/19/18 13:20 Ordered Levofloxacin/Dextrose 5%-Water [Levaquin in D5W 500 MG/ Med 01/19/18 14:17 Active 100 ML] 500 mg Premix Bag 1 bag IV ONETIME Sodium Chloride 0.9% [Saline Flush] Med 01/19/18 13:20 Active 10 ml FLUSH ASDIRECTED PRN Blood Culture x2 Reflex Set [OM.PC] Stat Oth 01/19/18 13:20 Ordered Peripheral IV Insertion Adult [OM.PC] Stat Oth 01/19/18 13:20 Ordered Medication Orders Levofloxacin/Dextrose 500 mg/ (Premix) 100 mls @ 100 mls/hr IV ONETIME ONE Stop: 01/19/18 15:16 Sodium Chloride (Saline Flush) 10 ml FLUSH ASDIRECTED PRN PRN Reason: Keep Vein Open Last Admin: 01/19/18 13:45 Dose: 10 ml Labs: Laboratory Tests 01/19/18 01/19/18 01/19/18 Range/Units 13:34 13:34 13:34 WBC 10.0 (5.0-10.0) 10^3/uL RBC 5.72 H (4.2-5.4) 10^6/uL Hgb 14.2 D (12.0-16.0) g/dL Hct 46.1 (37.0-47.0) % MCV 80.6 (80-100) fL MCH 24.8 L (27.0-34.0) pg MCHC 30.8 L (33.0-35.0) g/dL Plt Count 153 (150-450) 10^3/uL Neut % (Auto) 82.5 H (42.2-75.2) % Lymph % (Auto) 10.3 L (20.5-50.1) % [place] % (Auto) 6.4 (2-8) % Eos % (Auto) 0.7 L (1.0-3.0) % Baso % (Auto) 0.1 (0.0-1.0) % D-Dimer, Quantitative 1380 H (0-400) ng/mL Sodium 136 (135-145) mmol/L Potassium 4.1 (3.6-5.0) mmol/L Chloride 101 (101-111) mmol/L Carbon Dioxide 24.0 (21.0-31.0) mmol/L Anion Gap 15.1 BUN 19 H (7-18) mg/dL Creatinine 1.2 D (0.6-1.3) mg/dL Est Cr Clr Drug Dosing 50.00 mL/min Estimated GFR (MDRD) 49 BUN/Creatinine Ratio 15.83 Glucose 145 H (74-105) mg/dL Lactic Acid (0.5-2.2) mmol/L Calcium 8.6 (8.4-10.2) mg/dl Total Bilirubin 0.6 (0.2-1.0) mg/dL AST 43 H (10-42) IU/L ALT 51 (10-60) IU/L Alkaline Phosphatase 142 H (42-121) IU/L B-Natriuretic Peptide 13 (0-100) pg/ml Total Protein 8.1 (6.7-8.2) g/dl Albumin 3.5 (3.2-5.5) g/dl Globulin 4.6 Albumin/Globulin Ratio 0.76 07/18 Range/Units 13:34 WBC (5.0-10.0) 10^3/uL RBC (4.2-5.4) 10^6/uL Hgb (12.0-16.0) g/dL Hct (37.0-47.0) % MCV (80-100) fL MCH (27.0-34.0) pg MCHC (33.0-35.0) g/dL Plt Count (150-450) 10^3/uL Neut % (Auto) (42.2-75.2) % Lymph % (Auto) (20.5-50.1) % [place] % (Auto) (2-8) % Eos % (Auto) (1.0-3.0) % Baso % (Auto) (0.0-1.0) % D-Dimer, Quantitative (0-400) ng/mL Sodium (135-145) mmol/L Potassium (3.6-5.0) mmol/L Chloride (101-111) mmol/L Carbon Dioxide (21.0-31.0) mmol/L Anion Gap BUN (7-18) mg/dL Creatinine (0.6-1.3) mg/dL Est Cr Clr Drug Dosing mL/min Estimated GFR (MDRD) BUN/Creatinine Ratio Glucose (74-105) mg/dL Lactic Acid 1.2 (0.5-2.2) mmol/L Calcium (8.4-10.2) mg/dl Total Bilirubin (0.2-1.0) mg/dL AST (10-42) IU/L ALT (10-60) IU/L Alkaline Phosphatase (42-121) IU/L B-Natriuretic Peptide (0-100) pg/ml Total Protein (6.7-8.2) g/dl Albumin (3.2-5.5) g/dl Globulin Albumin/Globulin Ratio Meds: Medications Generic Name Dose Route Start Last Admin Trade Name Freq PRN Reason Stop Dose Admin Levofloxacin/Dextrose 500 mg/ 100 mls @ 100 mls/hr 01/19/18 14:17 Premix IV 01/19/18 15:16 ONETIME ONE Sodium Chloride 10 ml 01/19/18 13:20 01/19/18 13:45 Saline Flush FLUSH 10 ml ASDIRECTED PRN Administration Keep Vein Open Discontinued Medications Generic Name Dose Route Start Last Admin Trade Name Freq PRN Reason Stop Dose Admin Albuterol Confirm 01/19/18 13:14 01/19/18 13:22 Proventil Neb Soln Administered 01/19/18 13:15 Not Given Dose 2.5 mg .ROUTE .STK-MED ONE Albuterol 2.5 mg 01/19/18 13:19 01/19/18 13:22 Proventil Neb Soln NEB 01/19/18 13:20 2.5 mg ONETIME ONE Administration Albuterol 2.5 mg 01/19/18 14:53 Proventil Neb Soln NEB 01/19/18 14:54 ONETIME ONE Albuterol/Ipratropium Confirm 01/19/18 13:10 01/19/18 13:21 Duoneb 3.0-0.5 Mg/3 Ml Administered 01/19/18 13:11 3 ml Dose Administration 3 ml .ROUTE .STK-MED ONE Albuterol/Ipratropium 3 ml 01/19/18 13:19 01/19/18 13:23 Duoneb 3.0-0.5 Mg/3 Ml NEB 01/19/18 13:20 Not Given ONETIME ONE Sodium Chloride 1,000 mls @ 999 mls/hr 01/19/18 13:19 01/19/18 13:42 Normal Saline IV 01/19/18 14:19 999 mls/hr .BOLUS ONE Administration Methylprednisolone Sodium Succinate 125 mg 01/19/18 13:19 01/19/18 13:42 Solu-Medrol IVPUSH 01/19/18 13:20 125 mg ONETIME ONE Administration - Radiology Interpretation Free Text/Narrative:: CXR: RML/LL infiltrate, see Rad. report. - Re-Assessments/Exams Free Text/Narrative Re-Assessment/Exam: 01/19/18 15:08 Pt with elevated D-dimer, mod. high risk for DVT/PE due to sedentary life style , tobacco smoker, and obesity. Pt's GFR too low to risk CT Chest w/contrast for PE, as well as pt is not likely to benefit from delaying transfer to higher level of care to r/o PE. Pt has become fatigued from increased resp. effort, and I will place her on BiPAP prior to transfer. Departure - Departure Time of Disposition: 15:01 Disposition: DC/Tfer to Acute Hospital 02 Condition: Critical Clinical Impression: Morbid obesity, Tobacco dependency, Acute exacerbation of chronic obstructive pulmonary disease (COPD) Acute respiratory failure Qualifiers: Respiratory failure complication: hypoxia Qualified Code(s): J96.01 - Acute respiratory failure with hypoxia Pneumonia Qualifiers: Pneumonia type: due to unspecified organism Laterality: right Lung location: lower lobe of lung Qualified Code(s): J18.1 - Lobar pneumonia, unspecified organism - Discharge Information Forms: ED Department Discharge, Interfacility Transfer EMTALA - My Orders Last 24 Hours: My Active Orders 01/19/18 13:19 RT Aerosol Therapy [RC] ASDIRECTED 01/19/18 13:20 Peripheral IV Care [RC] . DIRECTED HCG QUALITATIVE,URINE [URCHEM] Stat UA W/MICROSCOPIC [URIN] Stat Sodium Chloride 0.9% [Saline Flush] 10 ml FLUSH ASDIRECTED PRN Blood Culture x2 Reflex Set [OM.PC] Stat Peripheral IV Insertion Adult [OM.PC] Stat 01/19/18 13:34 CULTURE BLOOD [BC] Stat 01/19/18 13:41 CULTURE BLOOD [BC] Stat 01/19/18 14:17 Levofloxacin/Dextrose 5%-Water [Levaquin in D5W 500 MG/100 ML] 500 mg Premix Bag 1 bag IV ONETIME 01/19/18 14:53 RT Aerosol Therapy [RC] ASDIRECTED 01/19/18 14:59 RT BiPAP/CPAP [RC] STAT - Assessment/Plan Last 24 Hours: My Active Orders 01/19/18 13:19 RT Aerosol Therapy [RC] ASDIRECTED 01/19/18 13:20 Peripheral IV Care [RC] . DIRECTED HCG QUALITATIVE,URINE [URCHEM] Stat UA W/MICROSCOPIC [URIN] Stat Sodium Chloride 0.9% [Saline Flush] 10 ml FLUSH ASDIRECTED PRN Blood Culture x2 Reflex Set [OM.PC] Stat Peripheral IV Insertion Adult [OM.PC] Stat 01/19/18 13:34 CULTURE BLOOD [BC] Stat 01/19/18 13:41 CULTURE BLOOD [BC] Stat 01/19/18 14:17 Levofloxacin/Dextrose 5%-Water [Levaquin in D5W 500 MG/100 ML] 500 mg Premix Bag 1 bag IV ONETIME 01/19/18 14:53 RT Aerosol Therapy [RC] ASDIRECTED 01/19/18 14:59 RT BiPAP/CPAP [RC] STAT
[2018-01-19 13:03] VITALS: BP 157/107
[2018-01-19] MEDS ORDERED: Albuterol/Ipratropium 3.0-0.5 MG/3 ML Neb Soln ONE (13:10)
[2018-01-19] MEDS ORDERED: Albuterol 0.083% 2.5 MG/3 ML Neb Soln ONE (13:14)
[2018-01-19] MEDS ORDERED: Albuterol/Ipratropium 3.0-0.5 MG/3 ML Neb Soln NEB ONE (13:19)
[2018-01-19] MEDS ORDERED: Albuterol 0.083% 2.5 MG/3 ML Neb Soln NEB ONE ×2 (13:19→14:53)
[2018-01-19] MEDS ORDERED: methylPREDNISolone Sodium Succinate 125 MG/2 ML SDV IVPUSH ONE (13:19)
[2018-01-19] MEDS ORDERED: Sodium Chloride 0.9% 1,000 ML IV ONE (13:19)
[2018-01-19] MEDS ORDERED: Sodium Chloride 0.9% 10 ML Syringe FLUSH PRN (13:20)
[2018-01-19 14:06] LABS: ANION GAP 15.1
[2018-01-19] MEDS ORDERED: Levofloxacin/Dextrose 5%-Water 500 MG in Premix Bag 1 BAG IV ONE (14:17)
--- NOTE | 2018-01-19 14:34 | CR ---
Clinical history: 42-year-old febrile female with cough, dyspnea and wheezing. Interpretation: Abnormal. *Asymmetric dense right perihilar pneumonic like consolidation. Reasonable inspiratory effort morbidly obese female demonstrates normal cardiac silhouette without ce phalization of flow, signs of alveolar edema or dependent pleural fluid accumulation. No lung mass, hilar lymphadenopathy or other focal lobar consolidation. No atelectasis/collapse. No p neumothorax. CONCLUSION: Perihilar and anterior segment right lower lobe pneumonia.
[2018-01-19] MEDS ORDERED: Ondansetron 4 MG/2 ML SDV IV ONE (15:25)
[2018-01-19] MEDS ORDERED: Ondansetron 4 MG/2 ML SDV ONE (15:26)
== END 2018-01-19 16:41 ==
LOC: DL.ED 12:50
DX: J96.01 Acute respiratory failure with hypoxia (principal); J44.1 Chronic obstructive pulmonary disease with (acute) exacerbation; J18.9 Pneumonia, unspecified organism; E66.01 Morbid (severe) obesity due to excess calories; F17.210 Nicotine dependence, cigarettes, uncomplicated; Z88.5 Allergy status to narcotic agent; Z88.8 Allergy status to other drugs, medicaments and biological substances
CPT/HCPCS: 36415; 71046; 80053; 83605; 83880; 85025; 85379; 87040; 94640; 94660; 96365; 96375; 99284; 99285; J1956; J2405; J2930; J7030; J7050; J7620

== ENCOUNTER 2019-11-13 21:06 | Inpatient (IN) | payer MEDICAID ==
[2019-11-14] MEDS ORDERED: Ondansetron 4 MG/2 ML SDV IVPUSH ONE (00:09)
[2019-11-14 00:52] LABS: ANION GAP 15.3 mEq/L (7-13)
[2019-11-14] MEDS ORDERED: cefTRIAXone 1 GM in Sodium Chloride 0.9% 50 ML IV ONE (01:00)
--- NOTE | 2019-11-14 01:04 | EDM.PDOC ---
ED HPI GENERAL MEDICAL PROBLEM - General Chief Complaint: Lower Extremity Injury/Pain Stated Complaint: CELLULITIS IN LEFT LEG PER PT. Time Seen by Provider: 11/13/19 23:45 Source of Information: Reports: Patient, RN, RN Notes Reviewed History Limitations: Reports: No Limitations - History of Present Illness INITIAL COMMENTS - FREE TEXT/NARRATIVE: Patient presents to ER with complaint of pain, swelling, warmth and redness to the left calf posteriorly. Patient states this has been like this about 1 day. Patient denies fever chills, shortness of breath, chest pains, difficulty breathing. Patient states she is had discoloration to the left lower leg for many years. Onset: Gradual Onset Date: 11/19/19 Duration: Constant, Getting Worse Location: Reports: Lower Extremity, Left Quality: Reports: Burning, Throbbing Severity: Moderate Improves with: Reports: None Worsens with: Reports: None Left Lower Leg Pain Score (Numeric/FACES): 9 - Related Data Allergies Allergy/AdvReac Type Severity Reaction Status Date / Time codeine Allergy Hives Verified 11/13/19 21:19 propoxyphene napsylate Allergy Rash Verified 11/13/19 21:19 [From Darvocet-N 100] Home Meds: Home Meds . 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: Musculoskeletal History: Reports: None Neurological History: Reports: Headaches, Chronic Psychiatric History: Reports: None Endocrine/Metabolic History: Reports: Diabetes, Type II, Obesity/BMI 30+ Hematologic History: Reports: None Immunologic History: Reports: None Oncologic (Cancer) History: Reports: None Dermatologic History: Reports: Cellulitis, Venous Stasis Dermatitis - Infectious Disease History Infectious Disease History: Reports: MRSA - Past Surgical History HEENT Surgical History: Reports: Tonsillectomy Cardiovascular Surgical History: Reports: None Respiratory Surgical History: Reports: None GI Surgical History: Reports: Appendectomy, Cholecystectomy Female Surgical History: Reports: Section Neurological Surgical History: Reports: None Musculoskeletal Surgical History: Reports: None Social & Family History - Family History Family Medical History: Noncontributory - Tobacco Use Smoking Status *Q: Former Smoker Used Tobacco, but Quit: Yes Month/Year Tobacco Last Used: october 2019 Second Hand Smoke Exposure: No - Caffeine Use Caffeine Use: Reports: Soda, Tea - Recreational Drug Use Recreational Drug Use: No - Living Situation & Occupation Living situation: Reports: , with Family Occupation: Disabled Review of Systems - Review of Systems Review Of Systems: Comprehensive ROS is negative, except as noted in HPI. ED EXAM, GENERAL - Physical Exam Exam: See Below Exam Limited By: No Limitations General Appearance: Alert, WD/WN, Mild Distress Eye Exam: Bilateral Eye: EOMI, Normal Inspection Ears: Normal External Exam, Hearing Grossly Normal Nose: Normal Inspection Throat/Mouth: Normal Inspection, Normal Voice, No Airway Compromise Head: Atraumatic, Normocephalic Neck: Normal Inspection, Supple, Non-Tender, Full Range of Motion Respiratory/Chest: No Respiratory Distress, Lungs Clear, Normal Breath Sounds, No Accessory Muscle Use, Chest Non-Tender Cardiovascular: Normal Peripheral Pulses, Regular Rate, Rhythm, No Edema, No Gallop, No JVD, No Murmur, No Rub Peripheral Pulses: 2+: Radial (L), Radial (R) GI/Abdominal: Normal Bowel Sounds, Soft, Non-Tender (Female) Exam: Deferred Rectal (Female) Exam: Deferred Back Exam: Normal Inspection, Full Range of Motion, NT Extremities: Leg Pain (Left lower leg), Other (Erythema, swelling, tenderness to the left calf posteriorly) Neurological: Alert, Oriented, CN II-XII Intact, Normal Cognition, Normal Gait, Normal Reflexes, No Motor/Sensory Deficits Psychiatric: Normal Affect, Normal Mood Skin Exam: Warm, Dry, Erythema (Posterior left calf approximately 9 cm x 9 cm), Increased Warmth, Lymphangitis Lymphatic: No Adenopathy Course - Vital Signs Last Recorded V/S: Last Vital Signs Temp 100.5 F 11/14/19 02:02 Pulse 117 H 11/14/19 02:02 Resp 18 11/14/19 02:02 BP 97/73 11/14/19 02:02 Pulse Ox 91 L 11/14/19 02:02 - Orders/Labs/Meds Orders: Active Orders 24 hr Category Date Time Status Admission Diagnosis [ADT] Stat ADT 11/14/19 02:32 Ordered Patient Status [ADT] Routine ADT 11/14/19 02:32 Active CULTURE BLOOD [BC] Stat Lab 11/13/19 23:34 Received CULTURE BLOOD [BC] Stat Lab 11/13/19 23:34 Results Sodium Chloride 0.9% [Normal Saline] 1,000 ml Med 11/14/19 02:06 Active IV .BOLUS Blood Culture x2 Reflex Set [OM.PC] Stat Oth 11/13/19 23:34 Ordered Medication Orders Sodium Chloride (Normal Saline) 1,000 mls @ 999 mls/hr IV .BOLUS ONE Stop: 11/14/19 03:06 Last Admin: 11/14/19 02:07 Dose: 999 mls/hr Labs: Laboratory Tests 11/14/19 11/14/19 11/14/19 Range/Units 00:15 00:15 00:15 WBC 14.7 H (5.0-10.0) 10^3/uL RBC 5.19 (4.2-5.4) 10^6/uL Hgb 13.4 (12.0-16.0) g/dL Hct 42.8 (37.0-47.0) % MCV 82.5 (80-100) fL MCH 25.8 L (27.0-34.0) pg MCHC 31.3 L (33.0-35.0) g/dL Plt Count 191 (150-450) 10^3/uL Neut % (Auto) 81.7 H (42.2-75.2) % Lymph % (Auto) 11.6 L (20.5-50.1) % [place] % (Auto) 6.0 (2-8) % Eos % (Auto) 0.5 L (1.0-3.0) % Baso % (Auto) 0.2 (0.0-1.0) % D-Dimer, Quantitative (0-400) ng/mL Sodium 138 (136-145) mmol/L Potassium 4.3 (3.5-5.1) mmol/L Chloride 101 (98-107) mmol/L Carbon Dioxide 26 (21-32) mmol/L Anion Gap 15.3 H (7-13) mEq/L BUN 20 H (7-18) mg/dL Creatinine 1.15 H (0.55-1.02) mg/dL Est Cr Clr Drug Dosing 51.10 mL/min Estimated GFR (MDRD) 51 BUN/Creatinine Ratio 17.4 (No establ ref range) Glucose 150 H (74-99) mg/dL Lactic Acid 1.2 (0.4-2.0) mmol/L Calcium 8.7 (8.5-10.1) mg/dL Total Bilirubin 0.4 (0.2-1.0) mg/dL AST 13 L (15-37) U/L ALT 25 (14-59) U/L Alkaline Phosphatase 127 H (46-116) U/L Total Protein 7.6 (6.4-8.2) g/dL Albumin 3.4 (3.4-5.0) g/dL Globulin 4.2 Albumin/Globulin Ratio 0.8 05/0420 Range/Units 00:15 WBC (5.0-10.0) 10^3/uL RBC (4.2-5.4) 10^6/uL Hgb (12.0-16.0) g/dL Hct (37.0-47.0) % MCV (80-100) fL MCH (27.0-34.0) pg MCHC (33.0-35.0) g/dL Plt Count (150-450) 10^3/uL Neut % (Auto) (42.2-75.2) % Lymph % (Auto) (20.5-50.1) % [place] % (Auto) (2-8) % Eos % (Auto) (1.0-3.0) % Baso % (Auto) (0.0-1.0) % D-Dimer, Quantitative 304 (0-400) ng/mL Sodium (136-145) mmol/L Potassium (3.5-5.1) mmol/L Chloride (98-107) mmol/L Carbon Dioxide (21-32) mmol/L Anion Gap (7-13) mEq/L BUN (7-18) mg/dL Creatinine (0.55-1.02) mg/dL Est Cr Clr Drug Dosing mL/min Estimated GFR (MDRD) BUN/Creatinine Ratio (No establ ref range) Glucose (74-99) mg/dL Lactic Acid (0.4-2.0) mmol/L Calcium (8.5-10.1) mg/dL Total Bilirubin (0.2-1.0) mg/dL AST (15-37) U/L ALT (14-59) U/L Alkaline Phosphatase (46-116) U/L Total Protein (6.4-8.2) g/dL Albumin (3.4-5.0) g/dL Globulin Albumin/Globulin Ratio Meds: Medications Generic Name Dose Route Start Last Admin Trade Name Freq PRN Reason Stop Dose Admin Sodium Chloride 1,000 mls @ 999 mls/hr 11/14/19 02:06 11/14/19 02:07 Normal Saline IV 11/14/19 03:06 999 mls/hr .BOLUS ONE Administration Discontinued Medications Generic Name Dose Route Start Last Admin Trade Name Freq PRN Reason Stop Dose Admin Ceftriaxone Sodium 1 gm/ 50 mls @ 100 mls/hr 11/14/19 01:00 11/14/19 01:12 Sodium Chloride IV 11/14/19 01:29 100 mls/hr ONETIME ONE Administration Ondansetron HCl 4 mg 11/14/19 00:09 11/14/19 00:14 Zofran IVPUSH 11/14/19 00:10 4 mg ONETIME ONE Administration Oxycodone/Acetaminophen 1 tab 11/14/19 01:46 Percocet 325-5 Mg PO 11/14/19 01:47 ONETIME ONE - Re-Assessments/Exams Free Text/Narrative Re-Assessment/Exam: 11/14/19 02:41 Discussed patient case with Dr. Carver who agreed to accept the patient for acute admission. Departure - Departure Time of Disposition: 01:49 Disposition: Admitted As Inpatient 65 Condition: Fair Clinical Impression: Cellulitis Qualifiers: Site of cellulitis: extremity Site of cellulitis of extremity: lower extremity Laterality: left Qualified Code(s): L03.116 - Cellulitis of left lower limb - Discharge Information *PRESCRIPTION DRUG MONITORING PROGRAM REVIEWED*: No *COPY OF PRESCRIPTION DRUG MONITORING REPORT IN PATIENT BASHIR: No Forms: ED Department Discharge Additional Instructions: RX: Cephalexin, Percocet May use Ibuprofen as directed for pain, Use minimal Tylenol, as there is 325mg of Tylenol in each Percocet. Max 3000mg of Tylenol daily. Follow up with your primary care facility this week if no improvement Sepsis Event Note - Evaluation Sepsis Screening Result: No Definite Risk - Focused Exam Vital Signs: Vital Signs Temp Pulse Resp BP Pulse Ox 11/14/19 02:02 100.5 F 117 H 18 97/73 91 L 11/13/19 21:10 99.6 F 133 H 18 187/94 H 96 Date Exam was Performed: 11/14/19 Time Exam was Performed: 02:37 - My Orders Last 24 Hours: My Active Orders 11/13/19 23:34 CULTURE BLOOD [BC] Stat CULTURE BLOOD [BC] Stat Blood Culture x2 Reflex Set [OM.PC] Stat 11/14/19 02:06 Sodium Chloride 0.9% [Normal Saline] 1,000 ml IV .BOLUS 11/14/19 02:32 Admission Diagnosis [ADT] Stat Patient Status [ADT] Routine - Assessment/Plan Last 24 Hours: My Active Orders 11/13/19 23:34 CULTURE BLOOD [BC] Stat CULTURE BLOOD [BC] Stat Blood Culture x2 Reflex Set [OM.PC] Stat 11/14/19 02:06 Sodium Chloride 0.9% [Normal Saline] 1,000 ml IV .BOLUS 11/14/19 02:32 Admission Diagnosis [ADT] Stat Patient Status [ADT] Routine
[2019-11-14] MEDS ORDERED: Acetaminophen/oxyCODONE 325-5 MG Tab PO ONE (01:46)
[2019-11-14] MEDS ORDERED: Sodium Chloride 0.9% 1,000 ML IV ONE (02:06)
--- NOTE | 2019-11-14 03:01 | PCM.HP ---
H&P History of Present Illness - General Date of Service: 11/14/19 Admit Problem/Dx: Admission Diagnosis/Problem Admission Diagnosis/Problem Cellulitis Source of Information: Patient, EMS Notes Reviewed, Old Records History Limitations: Reports: No Limitations - History of Present Illness Initial Comments - Free Text/Narative: Marybeth Mccarthy 42 y.o.medical history of morbid obesity, Chronic leg edema needing compressions socks, type 2 diabetes mellitus, hypertension, and past history of acute kidney injury in 2010, during which the patient had another experience of left leg cellulitis, associated with NITHYA , admitted to [facility] in January 2018 with Cellulitis. she is now admitted with Left LE cellulitis Onset of Symptoms: Reports: Gradual Duration of Symptoms: Reports: Day(s): Location: Reports: Lower Extremity, Left Quality: Reports: Dull Worsens with: Reports: Movement Left Lower Leg Pain Score (Numeric/FACES): 9 - Related Data Allergies/Adverse Reactions: Allergies Allergy/AdvReac Type Severity Reaction Status Date / Time codeine Allergy Hives Verified 11/13/19 21:19 propoxyphene napsylate Allergy Rash Verified 11/13/19 21:19 [From Darvocet-N 100] Home Medications: Home Meds Aspirin [Ecotrin EC] 81 mg PO DAILY 11/14/19 [History] Losartan [Cozaar] 100 mg PO DAILY 11/14/19 [History] Varenicline Tartrate [Chantix] 1 mg PO BID 11/14/19 [History] glyBURIDE [Glyburide] 10 mg PO DAILY 11/14/19 [History] Past Medical History HEENT History: Reports: None Cardiovascular History: Reports: Hypertension, Other (See Below) Other Cardiovascular History: edema with chronic venous stasis Respiratory History: Reports: Asthma Gastrointestinal History: Reports: None Genitourinary History: Reports: None DIRECTOR DRUG History: Reports: Musculoskeletal History: Reports: None Neurological History: Reports: Headaches, Chronic Psychiatric History: Reports: None Endocrine/Metabolic History: Reports: Diabetes, Type II, Obesity/BMI 30+ Hematologic History: Reports: None Immunologic History: Reports: None Oncologic (Cancer) History: Reports: None Dermatologic History: Reports: Cellulitis, Venous Stasis Dermatitis - Infectious Disease History Infectious Disease History: Reports: MRSA - Past Surgical History HEENT Surgical History: Reports: Tonsillectomy Cardiovascular Surgical History: Reports: None Respiratory Surgical History: Reports: None GI Surgical History: Reports: Appendectomy, Cholecystectomy Female Surgical History: Reports: Section Neurological Surgical History: Reports: None Musculoskeletal Surgical History: Reports: None Social & Family History - Family History Family Medical History: Noncontributory - Tobacco Use Smoking Status *Q: Former Smoker Used Tobacco, but Quit: Yes Month/Year Tobacco Last Used: october 2019 Second Hand Smoke Exposure: No - Caffeine Use Caffeine Use: Reports: Soda, Tea - Recreational Drug Use Recreational Drug Use: No - Living Situation & Occupation Living situation: Reports: , with Family Occupation: Disabled H&P Review of Systems - Review of Systems: Review Of Systems: See Below General: Reports: Fever, Weakness. Denies: Chills HEENT: Denies: Ear Pain, Eye Pain, Hearing Changes, Sinus Congestion, Sore Throat Pulmonary: Denies: Shortness of Breath, Wheezing, Cough, Sputum Cardiovascular: Denies: Chest Pain, Dyspnea on Exertion, Lightheadedness Gastrointestinal: Denies: Abdominal Pain, Difficulty Swallowing, Nausea, Vomiting Genitourinary: Denies: Dysuria, Burning, Urgency, Flank Pain Musculoskeletal: Denies: Neck Pain, Back Pain, Muscle Stiffness Skin: Reports: Erythema, Change in Color (left LE). Denies: Bruising, Pruritis Psychiatric: Denies: Confusion, Depression Neurological: Denies: Confusion, Weakness, Change in Speech Hematologic/Lymphatic: Reports: No Symptoms Immunologic: Reports: No Symptoms Exam - Exam Exam: See Below - Vital Signs Vital Signs: Last Vital Signs Temp 36.7 C 11/14/19 02:39 Pulse 110 H 11/14/19 02:39 Resp 20 11/14/19 02:39 BP 99/59 L 11/14/19 02:39 Pulse Ox 98 11/14/19 02:39 Weight: 163.917 kg - Exam Quality Assessment: DVT Prophylaxis. No: Supplemental Oxygen, Urinary Catheter General: Alert, Oriented, Cooperative HEENT: Conjunctiva Clear, EOMI, Hearing Intact, Mucosa Moist & [place] Neck: Supple. No: Lymphadenopathy, JVD, Thyromegaly Lungs: Clear to Auscultation, Normal Respiratory Effort. No: Wheezing Cardiovascular: Regular Rate, Regular Rhythm, Normal S1, Normal S2 GI/Abdominal Exam: Normal Bowel Sounds, Soft, Non-Tender. No: Guarding, Rigid, Rebound (Female) Exam: Deferred Rectal (Female) Exam: Deferred Back Exam: Normal Inspection Extremities: Normal Inspection, No Pedal Edema, Leg Pain (left LE calf tenderness) Skin: Warm, Dry, Intact Neuro Extensive - Mental Status: Alert, Oriented x3, Normal Mood/Affect, Normal Cognition, Memory Intact Neuro Extensive - Motor, Sensory, Reflexes: CN II-XII Intact, Normal Gait Psychiatric: Alert, Normal Affect, Normal Mood - Patient Data Lab Results Last 24 hrs: Laboratory Results - last 24 hr 11/14/19 11/14/19 11/14/19 Range/Units 00:15 00:15 00:15 WBC 14.7 H (5.0-10.0) 10^3/uL RBC 5.19 (4.2-5.4) 10^6/uL Hgb 13.4 (12.0-16.0) g/dL Hct 42.8 (37.0-47.0) % MCV 82.5 (80-100) fL MCH 25.8 L (27.0-34.0) pg MCHC 31.3 L (33.0-35.0) g/dL Plt Count 191 (150-450) 10^3/uL Neut % (Auto) 81.7 H (42.2-75.2) % Lymph % (Auto) 11.6 L (20.5-50.1) % [place] % (Auto) 6.0 (2-8) % Eos % (Auto) 0.5 L (1.0-3.0) % Baso % (Auto) 0.2 (0.0-1.0) % D-Dimer, Quantitative (0-400) ng/mL Sodium 138 (136-145) mmol/L Potassium 4.3 (3.5-5.1) mmol/L Chloride 101 (98-107) mmol/L Carbon Dioxide 26 (21-32) mmol/L Anion Gap 15.3 H (7-13) mEq/L BUN 20 H (7-18) mg/dL Creatinine 1.15 H (0.55-1.02) mg/dL Est Cr Clr Drug Dosing 51.10 mL/min Estimated GFR (MDRD) 51 BUN/Creatinine Ratio 17.4 (No establ ref range) Glucose 150 H (74-99) mg/dL Lactic Acid 1.2 (0.4-2.0) mmol/L Calcium 8.7 (8.5-10.1) mg/dL Total Bilirubin 0.4 (0.2-1.0) mg/dL AST 13 L (15-37) U/L ALT 25 (14-59) U/L Alkaline Phosphatase 127 H (46-116) U/L Total Protein 7.6 (6.4-8.2) g/dL Albumin 3.4 (3.4-5.0) g/dL Globulin 4.2 Albumin/Globulin Ratio 0.8 11/14/19 Range/Units 00:15 WBC (5.0-10.0) 10^3/uL RBC (4.2-5.4) 10^6/uL Hgb (12.0-16.0) g/dL Hct (37.0-47.0) % MCV (80-100) fL MCH (27.0-34.0) pg MCHC (33.0-35.0) g/dL Plt Count (150-450) 10^3/uL Neut % (Auto) (42.2-75.2) % Lymph % (Auto) (20.5-50.1) % [place] % (Auto) (2-8) % Eos % (Auto) (1.0-3.0) % Baso % (Auto) (0.0-1.0) % D-Dimer, Quantitative 304 (0-400) ng/mL Sodium (136-145) mmol/L Potassium (3.5-5.1) mmol/L Chloride (98-107) mmol/L Carbon Dioxide (21-32) mmol/L Anion Gap (7-13) mEq/L BUN (7-18) mg/dL Creatinine (0.55-1.02) mg/dL Est Cr Clr Drug Dosing mL/min Estimated GFR (MDRD) BUN/Creatinine Ratio (No establ ref range) Glucose (74-99) mg/dL Lactic Acid (0.4-2.0) mmol/L Calcium (8.5-10.1) mg/dL Total Bilirubin (0.2-1.0) mg/dL AST (15-37) U/L ALT (14-59) U/L Alkaline Phosphatase (46-116) U/L Total Protein (6.4-8.2) g/dL Albumin (3.4-5.0) g/dL Globulin Albumin/Globulin Ratio Result Diagrams: 11/14/19 00:15 11/14/19 00:15 [place] Results Last 24 hrs: Microbiology 11/14/19 00:15 Anaerobic Blood Culture - Final Blood - Venous - Lab Draw - Problem List (1) Cellulitis SNOMED Code(s): 319773738 ICD Code: L03.90 - CELLULITIS, UNSPECIFIED Status: Acute Current Visit: No Qualifiers: Site of cellulitis: extremity Site of cellulitis of extremity: lower extremity Laterality: left Qualified Code(s): L03.116 - Cellulitis of left lower limb (2) Diabetes SNOMED Code(s): 09226978 ICD Code: E11.9 - TYPE 2 DIABETES MELLITUS WITHOUT COMPLICATIONS Status: Acute Current Visit: No (3) Morbid obesity SNOMED Code(s): 551623378 ICD Code: E66.01 - MORBID (SEVERE) OBESITY DUE TO EXCESS CALORIES Status: Acute Current Visit: No Problem List Initiated/Reviewed/Updated: Yes Orders Last 24hrs: Active Orders 24 hr Category Date Time Status Admission Diagnosis [ADT] Stat ADT 11/14/19 02:32 Ordered Patient Status [ADT] Routine ADT 11/14/19 02:32 Active CULTURE BLOOD [BC] Stat Lab 11/13/19 23:34 Received CULTURE BLOOD [BC] Stat Lab 11/13/19 23:34 Results Sodium Chloride 0.9% [Normal Saline] 1,000 ml Med 11/14/19 02:06 Active IV .BOLUS Blood Culture x2 Reflex Set [OM.PC] Stat Oth 11/13/19 23:34 Ordered Medication Orders Sodium Chloride (Normal Saline) 1,000 mls @ 999 mls/hr IV .BOLUS ONE Stop: 11/14/19 03:06 Last Admin: 11/14/19 02:07 Dose: 999 mls/hr Assessment/Plan Comment:: Marybeth Mccarthy 44 y.o.medical history of morbid obesity, Chronic leg edema needing compressions socks, type 2 diabetes mellitus, hypertension, and past history of acute kidney injury in 2010, during which the patient had another experience of left leg cellulitis, associated with NITHYA, again admitted to [facility] in January 2018 with Left LE Cellulitis . She came to ER with Left LE pain and warmth, admitted again with Left LE cellulitis Impression and Plan: 1. Left LE pain and warmth: This likely from cellulitis -Will start her on Zosyn -F/U Blood Culture -Will get Ultrasound of left LE to rule out DVT ( Prelim: Negative for DVT) 2. Diabetes II: She is on oral hypoglycemic and will continue Glyburide 10 mg daily -QID BS check with sliding scale coverage 3. Obesity: advise to control diet and lose weight 4. Hypertension: BP acceptable and will continue Losartan at 100 mg daily DVT prophylaxis: Continue enoxaparin Code Status: DNR/DNI .
[2019-11-14] MEDS ORDERED: Docusate Sodium 100 MG Cap PO PRN (03:17)
[2019-11-14] MEDS: Piperacillin/Tazobactam 3.375 GM in Sodium Chloride 0.9% 100 ML IV SCH ×5 (03:43→23:54)
[2019-11-14] MEDS: Acetaminophen 325 MG Tab PO PRN ×3 (04:31→22:06)
[2019-11-14] MEDS: Insulin Lispro 100 Units/ML 3 ML Vial SUBCUT SCH ×2 (08:01→17:18)
[2019-11-14] MEDS ORDERED: Non-Formulary Medication 1 Each (Varenicline Tartrate [Chantix] 1 MG) PO SCH (09:00)
[2019-11-14] MEDS: Losartan 50 MG Tab PO SCH (10:15)
[2019-11-14] MEDS: glyBURIDE 5 MG Tab PO SCH (10:15)
[2019-11-14] MEDS: Aspirin 81 MG Tab.EC PO SCH (10:15)
[2019-11-14] MEDS: Enoxaparin 40 MG/0.4 ML Syringe SUBCUT SCH (10:16)
[2019-11-15] MEDS: Piperacillin/Tazobactam 3.375 GM in Sodium Chloride 0.9% 100 ML IV SCH ×4 (05:32→23:31)
[2019-11-15] MEDS: Acetaminophen 325 MG Tab PO PRN ×2 (06:20→21:49)
[2019-11-15 07:40] LABS: ANION GAP 10.2 mEq/L (7-13)
[2019-11-15] MEDS: Aspirin 81 MG Tab.EC PO SCH (08:27)
[2019-11-15] MEDS: Enoxaparin 40 MG/0.4 ML Syringe SUBCUT SCH (08:27)
[2019-11-15] MEDS: glyBURIDE 5 MG Tab PO SCH (08:27)
[2019-11-15] MEDS: Insulin Lispro 100 Units/ML 3 ML Vial SUBCUT SCH ×2 (08:55→17:14)
--- NOTE | 2019-11-15 10:01 | PCM.PN ---
- General Info Date of Service: 11/15/19 Admission Dx/Problem (Free Text): Admission Diagnosis/Problem Admission Diagnosis/Problem Left LE Cellulitis Subjective Update: Marybeth Mccarthy 42 y.o.medical history of morbid obesity, Chronic leg edema needing compressions socks, type 2 diabetes mellitus, hypertension, and past history of acute kidney injury in 2010, during which the patient had another experience of left leg cellulitis, associated with NITHYA , admitted to [facility] in January 2018 with Cellulitis. She presented with LLE swelling, redness, pain x 2 days and was admitted for recurrent left LE cellulitis. She was started on IV Zosyn. Today she is doing well. Sween sitting up in chair and endorsed feeling better. Redness, swelling and pain to LLE has improved. Wbc trended down. she has no fever, chills, nausea or vomiting. Functional Status: Reports: Pain Controlled - Review of Systems General: Reports: No Symptoms HEENT: Reports: No Symptoms Pulmonary: Reports: No Symptoms Cardiovascular: Reports: No Symptoms Gastrointestinal: Reports: No Symptoms Genitourinary: Reports: No Symptoms Musculoskeletal: Reports: No Symptoms Skin: Reports: No Symptoms Neurological: Reports: No Symptoms Psychiatric: Reports: No Symptoms - Patient Data Vitals - Most Recent: Last Vital Signs Temp 98.4 F 11/15/19 08:14 Pulse 58 L 11/15/19 08:14 Resp 20 11/15/19 08:14 BP 118/52 L 11/15/19 08:14 Pulse Ox 94 L 11/15/19 08:14 Weight - Most Recent: 361 lb 6 oz I&O - Last 24 Hours: Intake & Output 11/14/19 11/15/19 11/15/19 22:59 06:59 14:59 Intake Total 1673 493 Output Total 400 800 Balance 1273 -307 Lab Results Last 24 Hours: Laboratory Results - last 24 hr 11/14/19 11/14/19 11/14/19 Range/Units 11:15 17:04 20:50 WBC (5.0-10.0) 10^3/uL RBC (4.2-5.4) 10^6/uL Hgb (12.0-16.0) g/dL Hct (37.0-47.0) % MCV (80-100) fL MCH (27.0-34.0) pg MCHC (33.0-35.0) g/dL Plt Count (150-450) 10^3/uL Neut % (Auto) (42.2-75.2) % Lymph % (Auto) (20.5-50.1) % [place] % (Auto) (2-8) % Eos % (Auto) (1.0-3.0) % Baso % (Auto) (0.0-1.0) % Sodium (136-145) mmol/L Potassium (3.5-5.1) mmol/L Chloride (98-107) mmol/L Carbon Dioxide (21-32) mmol/L Anion Gap (7-13) mEq/L BUN (7-18) mg/dL Creatinine (0.55-1.02) mg/dL Est Cr Clr Drug Dosing mL/min Estimated GFR (MDRD) Glucose (74-99) mg/dL POC Glucose 140 H 57 L 134 H (70-105) mg/dl Calcium (8.5-10.1) mg/dL 11/15/19 11/15/19 11/15/19 Range/Units 07:17 07:17 08:00 WBC 13.1 H (5.0-10.0) 10^3/uL RBC 4.61 (4.2-5.4) 10^6/uL Hgb 12.0 (12.0-16.0) g/dL Hct 38.6 (37.0-47.0) % MCV 83.7 (80-100) fL MCH 26.0 L (27.0-34.0) pg MCHC 31.1 L (33.0-35.0) g/dL Plt Count 165 (150-450) 10^3/uL Neut % (Auto) 86.7 H (42.2-75.2) % Lymph % (Auto) 5.3 L (20.5-50.1) % [place] % (Auto) 5.3 (2-8) % Eos % (Auto) 2.5 (1.0-3.0) % Baso % (Auto) 0.2 (0.0-1.0) % Sodium 139 (136-145) mmol/L Potassium 4.2 (3.5-5.1) mmol/L Chloride 104 (98-107) mmol/L Carbon Dioxide 29 (21-32) mmol/L Anion Gap 10.2 (7-13) mEq/L BUN 23 H (7-18) mg/dL Creatinine 1.18 H (0.55-1.02) mg/dL Est Cr Clr Drug Dosing 49.80 mL/min Estimated GFR (MDRD) 50 Glucose 109 H (74-99) mg/dL POC Glucose 97 (70-105) mg/dl Calcium 8.2 L (8.5-10.1) mg/dL [place] Results Last 24 Hours: Microbiology 11/14/19 00:05 Aerobic Blood Culture - Preliminary Blood - Venous NO GROWTH AFTER 1 DAY Anaerobic Blood Culture - Preliminary NO GROWTH AFTER 1 DAY 11/14/19 00:15 Aerobic Blood Culture - Preliminary Blood - Venous - Lab Draw NO GROWTH AFTER 1 DAY Anaerobic Blood Culture - Final Med Orders - Current: Current Medications Acetaminophen (Tylenol) 650 mg PO Q4H PRN PRN Reason: Pain (mild 1-3 )/fever Last Admin: 11/15/19 06:20 Dose: 650 mg Aspirin (Halfprin) 81 mg PO DAILY [facility] Last Admin: 11/15/19 08:27 Dose: 81 mg Docusate Sodium (Colace) 100 mg PO DAILY PRN PRN Reason: Constipation Enoxaparin Sodium (Lovenox) 40 mg SUBCUT DAILY [facility] Last Admin: 11/15/19 08:27 Dose: 40 mg Glimepiride (Amaryl) 1 mg PO WITHBREAKFAST [facility] Piperacillin Sod/Tazobactam (Sod 3.375 gm/ Sodium Chloride) 100 mls @ 200 mls/ hr IV Q6HR [facility] Last Infusion: 11/15/19 06:18 Dose: Infused Insulin Human Lispro (Humalog) 0 unit SUBCUT BIDMEALS [facility]; Protocol Last Admin: 11/15/19 08:55 Dose: Not Given Losartan Potassium (Cozaar) 100 mg PO DAILY [facility] Last Admin: 11/14/19 10:15 Dose: 100 mg Non-Formulary Medication (Varenicline Tartrate [Chantix]) 1 mg PO BID [facility] Discontinued Medications Glyburide (Micronase) 10 mg PO DAILY [facility] Last Admin: 11/15/19 08:27 Dose: 10 mg Ceftriaxone Sodium 1 gm/ (Sodium Chloride) 50 mls @ 100 mls/hr IV ONETIME ONE Stop: 11/14/19 01:29 Last Admin: 11/14/19 01:12 Dose: 100 mls/hr Sodium Chloride (Normal Saline) 1,000 mls @ 999 mls/hr IV .BOLUS ONE Stop: 11/14/19 03:06 Last Admin: 11/14/19 02:07 Dose: 999 mls/hr Piperacillin Sod/Tazobactam (Sod 3.375 gm/ Sodium Chloride) 100 mls @ 200 mls/ hr IV Q6H ASHLY Last Admin: 11/14/19 10:30 Dose: Not Given Ondansetron HCl (Zofran) 4 mg IVPUSH ONETIME ONE Stop: 11/14/19 00:10 Last Admin: 11/14/19 00:14 Dose: 4 mg Oxycodone/Acetaminophen (Percocet 325-5 Mg) 1 tab PO ONETIME ONE Stop: 11/14/19 01:47 Last Admin: 11/14/19 03:11 Dose: Not Given - Exam Quality Assessment: DVT Prophylaxis, Skin Breakdown General: Alert, Oriented HEENT: Pupils Equal, Pupils Reactive, EOMI, Mucous Membr. Moist/[place] Neck: Supple Lungs: Clear to Auscultation, Normal Respiratory Effort Cardiovascular: Regular Rate, Regular Rhythm GI/Abdominal Exam: Normal Bowel Sounds, Soft, Non-Tender, No Organomegaly, No Distention, No Abnormal Bruit, No Mass, Pelvis Stable (Female) Exam: Normal External Exam, Normal Speculum Exam, Normal Bimanual Exam Back Exam: Normal Inspection, Full Range of Motion Extremities: Normal Inspection, Normal Range of Motion, Non-Tender, Normal Capillary Refill, Pedal Edema, Other (LLE swelling, redness and tenderness) Skin: Warm, Dry, Intact Wound/Incisions: Healing Well Neurological: No New Focal Deficit Psy/Mental Status: Alert, Normal Affect, Normal Mood Sepsis Event Note - Evaluation Sepsis Screening Result: Sepsis Risk - Focused Exam Vital Signs: Vital Signs Temp Pulse Resp BP BP Pulse Ox Pulse Ox 11/15/19 08:14 98.4 F 58 L 20 118/52 L 94 L 11/15/19 04:45 97.8 F 99 20 126/59 L 95 11/15/19 03:18 94 L 94 L 11/14/19 23:21 97.7 F 97 20 120/56 L 97 Date Exam was Performed: 11/15/19 Time Exam was Performed: 09:51 - Problem List Review Problem List Initiated/Reviewed/Updated: Yes - My Orders Last 24 Hours: My Active Orders 11/14/19 13:20 Blood Glucose Check, Bedside [RC] BIDMEALS 11/16/19 08:00 Glimepiride [Amaryl] 1 mg PO WITHBREAKFAST - Plan Plan:: Marybeth Mccarthy 44 y.o.medical history of morbid obesity, Chronic leg edema needing compressions socks, type 2 diabetes mellitus, hypertension, and past history of acute kidney injury in 2010, during which the patient had another experience of left leg cellulitis, associated with NITHYA, again admitted to [facility] in January 2018 with Left LE Cellulitis . She came to ER with Left LE swelling, redness and was admitted for recurrent left LE cellulitis #Recurrent left cellulitis -Venous US was negative for DVT -Appears to be improving. Wbc trending down -Continue Zosyn -F/U Blood Culture # Diabetes II -A1c -On Amaryl 1 mg daily. Will continue -QID BS check with sliding scale coverage #Obesity -Advise to control diet and lose weight #Hypertension -Continue Losartan at 100 mg daily #DVT prophylaxis -Enoxaparin #Code Status -DNR/DNI .
[2019-11-15] MEDS: Losartan 50 MG Tab PO SCH (10:06)
[2019-11-15] MEDS: Sodium Chloride 0.9% 1,000 ML IV SCH (13:10)
[2019-11-16] MEDS: Sodium Chloride 0.9% 1,000 ML IV SCH (02:36)
[2019-11-16] MEDS: Piperacillin/Tazobactam 3.375 GM in Sodium Chloride 0.9% 100 ML IV SCH (05:50)
[2019-11-16] MEDS ORDERED: glyBURIDE 5 MG Tab PO SCH ×3 (06:00→07:30)
[2019-11-16] MEDS ORDERED: Glimepiride 2 MG Tab PO SCH (08:00)
[2019-11-16] MEDS: Aspirin 81 MG Tab.EC PO SCH (08:13)
[2019-11-16] MEDS: Losartan 50 MG Tab PO SCH (08:13)
[2019-11-16] MEDS: Enoxaparin 40 MG/0.4 ML Syringe SUBCUT SCH (08:14)
[2019-11-16] MEDS: Insulin Lispro 100 Units/ML 3 ML Vial SUBCUT SCH (08:15)
[2019-11-16 08:20] VITALS: BP 125/67; PULSE 96
--- NOTE | 2019-11-16 10:10 | PCM.DCSUM1 ---
Discharge Summary - Hospital Course Free Text/Narrative:: Marybeth Mccarthy 42 y.o.medical history of morbid obesity, Chronic leg edema needing compressions socks, type 2 diabetes mellitus, hypertension, and past history of acute kidney injury in 2010, during which the patient had another experience of left leg cellulitis, associated with NITHYA , admitted to [facility] in January 2018 with Cellulitis. She presented with LLE swelling, redness, pain x 2 days and was admitted for recurrent left LE cellulitis. She was started on IV Zosyn. her symptoms improved. LLE swelling, redness and pain insignificantly. patient was discharged in stable condition with plan to follow up with PCP. Diagnosis: Stroke: No - Discharge Data Discharge Date: 11/16/19 Discharge Disposition: Home, Self-Care 01 Condition: Stable - Referral to Home Health Primary Care Physician: PCP None - Patient Instructions Diet: Heart Healthy Diet, Diabetic Diet Activity: As Tolerated Driving: May Drive Today Showering/Bathing: November Shower Notify Provider of: Fever, Increased Pain, Swelling and Redness, Nausea and/or Vomiting - Discharge Plan *PRESCRIPTION DRUG MONITORING PROGRAM REVIEWED*: No *COPY OF PRESCRIPTION DRUG MONITORING REPORT IN PATIENT BASHIR: No Prescriptions/Med Rec: clindamycin HCL [Clindamycin HCl] 300 mg PO Q6H 10 Days #40 capsule Home Medications: Home Meds Aspirin [Ecotrin EC] 81 mg PO DAILY 11/14/19 [History] Glimepiride [Amaryl] 1 mg PO WITHBREAKFAST 11/14/19 [History] Losartan [Cozaar] 100 mg PO DAILY 11/14/19 [History] Metoprolol Succinate [Toprol XL] 25 mg PO DAILY 11/14/19 [History] Varenicline Tartrate [Chantix] 1 mg PO BID 11/14/19 [History] atorvaSTATin [Lipitor] 10 mg PO BEDTIME 11/14/19 [History] clindamycin HCL [Clindamycin HCl] 300 mg PO Q6H 10 Days #40 capsule 11/16/19 [Rx ] Oxygen Therapy Mode: Room Air Forms: ED Department Discharge Referrals: PCP,None [Primary Care Provider] - - Discharge Summary/Plan Comment DC Time >30 min.: Yes Discharge Summary/Plan Comment: Complete antibiotics Follow up with PCP on Thursday - General Info Date of Service: 11/16/19 Admission Dx/Problem (Free Text: Admission Diagnosis/Problem Admission Diagnosis/Problem Left LE Cellulitis Subjective Update: Marybeth Mccarthy 42 y.o.medical history of morbid obesity, Chronic leg edema needing compressions socks, type 2 diabetes mellitus, hypertension, and past history of acute kidney injury in 2010, during which the patient had another experience of left leg cellulitis, associated with NITHYA , admitted to [facility] in January 2018 with Cellulitis. She presented with LLE swelling, redness, pain x 2 days and was admitted for recurrent left LE cellulitis. She was started on IV Zosyn. Today she is doing well. Sween sitting up in chair and endorsed feeling better. Redness, swelling and pain to LLE has improved. Wbc now within normal limits. she has no fever, chills, nausea or vomiting. Functional Status: Reports: Pain Controlled - Review of Systems General: Reports: No Symptoms HEENT: Reports: No Symptoms Pulmonary: Reports: No Symptoms Cardiovascular: Reports: No Symptoms Gastrointestinal: Reports: No Symptoms Genitourinary: Reports: No Symptoms Musculoskeletal: Reports: No Symptoms Skin: Reports: No Symptoms Neurological: Reports: No Symptoms Psychiatric: Reports: No Symptoms - Patient Data Vitals - Most Recent: Last Vital Signs Temp 97.9 F 11/16/19 08:19 Pulse 96 11/16/19 08:19 Resp 20 11/16/19 08:19 BP 125/67 11/16/19 08:19 Pulse Ox 96 11/16/19 08:19 Weight - Most Recent: 361 lb 6 oz I&O - Last 24 hours: Intake & Output 11/15/19 11/16/19 11/16/19 22:59 06:59 14:59 Intake Total 657 635 197 Output Total 700 Balance -43 635 197 Lab Results - Last 24 hrs: Laboratory Results - last 24 hr 11/15/19 11/16/19 11/16/19 Range/Units 16:51 06:30 06:30 WBC 9.7 (5.0-10.0) 10^3/uL RBC 4.47 (4.2-5.4) 10^6/uL Hgb 11.6 L (12.0-16.0) g/dL Hct 38.0 (37.0-47.0) % MCV 85.0 (80-100) fL MCH 26.0 L (27.0-34.0) pg MCHC 30.5 L (33.0-35.0) g/dL Plt Count 177 (150-450) 10^3/uL Sodium 140 (136-145) mmol/L Potassium 4.0 (3.5-5.1) mmol/L Chloride 106 (98-107) mmol/L Carbon Dioxide 30 (21-32) mmol/L Anion Gap 8.0 (7-13) mEq/L BUN 18 (7-18) mg/dL Creatinine 1.15 H (0.55-1.02) mg/dL Est Cr Clr Drug Dosing 51.10 mL/min Estimated GFR (MDRD) 51 Glucose 64 L (74-99) mg/dL POC Glucose 121 H (70-105) mg/dl Calcium 8.0 L (8.5-10.1) mg/dL 11/16/19 Range/Units 07:49 WBC (5.0-10.0) 10^3/uL RBC (4.2-5.4) 10^6/uL Hgb (12.0-16.0) g/dL Hct (37.0-47.0) % MCV (80-100) fL MCH (27.0-34.0) pg MCHC (33.0-35.0) g/dL Plt Count (150-450) 10^3/uL Sodium (136-145) mmol/L Potassium (3.5-5.1) mmol/L Chloride (98-107) mmol/L Carbon Dioxide (21-32) mmol/L Anion Gap (7-13) mEq/L BUN (7-18) mg/dL Creatinine (0.55-1.02) mg/dL Est Cr Clr Drug Dosing mL/min Estimated GFR (MDRD) Glucose (74-99) mg/dL POC Glucose 64 L (70-105) mg/dl Calcium (8.5-10.1) mg/dL TAHMINA Results - Last 24 hrs: Microbiology 11/14/19 00:05 Aerobic Blood Culture - Preliminary Blood - Venous NO GROWTH AFTER 2 DAYS Anaerobic Blood Culture - Preliminary NO GROWTH AFTER 2 DAYS 11/14/19 00:15 Aerobic Blood Culture - Preliminary Blood - Venous - Lab Draw NO GROWTH AFTER 2 DAYS Anaerobic Blood Culture - Final Med Orders - Current: Current Medications Acetaminophen (Tylenol) 650 mg PO Q4H PRN PRN Reason: Pain (mild 1-3 )/fever Last Admin: 11/15/19 21:49 Dose: 650 mg Aspirin (Halfprin) 81 mg PO DAILY [facility] Last Admin: 11/16/19 08:13 Dose: 81 mg Docusate Sodium (Colace) 100 mg PO DAILY PRN PRN Reason: Constipation Enoxaparin Sodium (Lovenox) 40 mg SUBCUT DAILY [facility] Last Admin: 11/16/19 08:14 Dose: 40 mg Glyburide (Micronase) 5 mg PO DAILY@0730 [facility] Last Admin: 11/16/19 08:13 Dose: 5 mg Piperacillin Sod/Tazobactam (Sod 3.375 gm/ Sodium Chloride) 100 mls @ 200 mls/ hr IV Q6HR [facility] Last Infusion: 11/16/19 06:26 Dose: Infused Sodium Chloride (Normal Saline) 1,000 mls @ 75 mls/hr IV ASDIRECTED [facility] Last Infusion: 11/16/19 09:46 Dose: 0 mls/hr Insulin Human Lispro (Humalog) 0 unit SUBCUT BIDMEALS [facility]; Protocol Last Admin: 11/16/19 08:15 Dose: Not Given Losartan Potassium (Cozaar) 100 mg PO DAILY [facility] Last Admin: 11/16/19 08:13 Dose: 100 mg Non-Formulary Medication (Varenicline Tartrate [Chantix]) 1 mg PO BID [facility] Discontinued Medications Glimepiride (Amaryl) 1 mg PO WITHBREAKFAST [facility] Glyburide (Micronase) 10 mg PO DAILY [facility] Last Admin: 11/15/19 08:27 Dose: 10 mg Glyburide (Micronase) 10 mg PO ACBRK [facility] Glyburide (Micronase) 5 mg PO ACBRK [facility] Ceftriaxone Sodium 1 gm/ (Sodium Chloride) 50 mls @ 100 mls/hr IV ONETIME ONE Stop: 11/14/19 01:29 Last Admin: 11/14/19 01:12 Dose: 100 mls/hr Sodium Chloride (Normal Saline) 1,000 mls @ 999 mls/hr IV .BOLUS ONE Stop: 11/14/19 03:06 Last Admin: 11/14/19 02:07 Dose: 999 mls/hr Piperacillin Sod/Tazobactam (Sod 3.375 gm/ Sodium Chloride) 100 mls @ 200 mls/ hr IV Q6H [facility] Last Admin: 11/14/19 10:30 Dose: Not Given Ondansetron HCl (Zofran) 4 mg IVPUSH ONETIME ONE Stop: 11/14/19 00:10 Last Admin: 11/14/19 00:14 Dose: 4 mg Oxycodone/Acetaminophen (Percocet 325-5 Mg) 1 tab PO ONETIME ONE Stop: 11/14/19 01:47 Last Admin: 11/14/19 03:11 Dose: Not Given - Exam General: Reports: Alert, Oriented HEENT: Reports: Pupils Equal, Pupils Reactive, EOMI, Mucous Membr. Moist/[place] Neck: Reports: Supple Lungs: Reports: Clear to Auscultation, Normal Respiratory Effort Cardiovascular: Reports: Regular Rate, Regular Rhythm GI/Abdominal Exam: Normal Bowel Sounds, Soft, Non-Tender, No Organomegaly, No Distention, No Abnormal Bruit, No Mass, Pelvis Stable (Female) Exam: Normal External Exam, Normal Speculum Exam, Normal Bimanual Exam Rectal (Female) Exam: Normal Exam, Normal Rectal Tone Back Exam: Reports: Normal Inspection, Full Range of Motion Extremities: Normal Inspection, Normal Range of Motion, Non-Tender, Normal Capillary Refill, Other (sweling, redness to LLE improved) Skin: Reports: Warm, Dry, Intact Wound/Incisions: Reports: Healing Well Neurological: Reports: No New Focal Deficit Psy/Mental Status: Reports: Alert, Normal Affect, Normal Mood
== END 2019-11-16 11:15 | disposition home or self-care (01) | DRG 638 ==
LOC: DL.ED 21:06 → DL.MS 11-14 02:32
PROVIDERS: ADMIT Internal Medicine Nephrology; ATTEND Internal Medicine Nephrology
DX: E11.628 Type 2 diabetes mellitus with other skin complications (principal); L03.116 Cellulitis of left lower limb; I87.8 Other specified disorders of veins; Z68.44 Body mass index [BMI] 60.0-69.9, adult; I87.2 Venous insufficiency (chronic) (peripheral); Z88.6 Allergy status to analgesic agent; E11.9 Type 2 diabetes mellitus without complications; I10 Essential (primary) hypertension; J45.909 Unspecified asthma, uncomplicated; E66.9 Obesity, unspecified; E66.01 Morbid (severe) obesity due to excess calories; Z88.5 Allergy status to narcotic agent; Z79.82 Long term (current) use of aspirin; Z79.899 Other long term (current) drug therapy; Z90.49 Acquired absence of other specified parts of digestive tract; Z87.891 Personal history of nicotine dependence; Z28.82 Immunization not carried out because of caregiver refusal
CPT/HCPCS: 36415; 80053; 83605; 85025; 85379; 87040 ×2; 96365; 96375; 99284; J0696; J2405; J7030; J7050; 80048; 82962; 85027; 93971; A9270-GY; J1650; J2543

== ENCOUNTER 2019-12-21 17:13 | Emergency (ER) | payer MEDICAID ==
[2019-12-21 17:32] VITALS: BP 160/86; PULSE 93
[2019-12-21] MEDS ORDERED: Sodium Chloride 0.9% 10 ML Syringe FLUSH PRN (17:39)
[2019-12-21] MEDS ORDERED: Ondansetron 4 MG/2 ML SDV IV ONE (17:40)
[2019-12-21] MEDS ORDERED: ceFAZolin 2 GM in Premix Bag 1 BAG IV ONE (17:40)
[2019-12-21] MEDS ORDERED: Lidocaine 1% 30 ML SDV INJECT ONE (17:41)
[2019-12-21] MEDS ORDERED: Bupivacaine 0.25% 10 ML SDV INJECT ONE ×2 (17:41→18:00)
[2019-12-21] MEDS ORDERED: HYDROmorphone 1 MG/ML Syringe IVPUSH ONE (17:41)
[2019-12-21] MEDS ORDERED: Bupivacaine 0.5% 30 ML SDV INJECT ONE (18:00)
--- NOTE | 2019-12-21 19:28 | EDM.PDOC ---
Scribed by Kimberley Del Toro [birth year]/21/191927 for Zheng Young MD ED HPI GENERAL MEDICAL PROBLEM - General Chief Complaint: Lower Extremity Injury/Pain Stated Complaint: AMBULANCE Time Seen by Provider: 12/21/19 17:31 Source of Information: Reports: Patient, RN, RN Notes Reviewed History Limitations: Reports: No Limitations - History of Present Illness INITIAL COMMENTS - FREE TEXT/NARRATIVE: Patient arrives to ER by [facility] with complaint of large laceration to the left lower leg. Patient was at home and accidentally stepped into an open floor furnace vent. Her leg got stuck in the vent. She forcefully tried to pull it out and was cut on the sheet metal. EMS reports a 20cm long laceration deep into the subcutaneous fat pad. Last tetanus is unknown, but presumed to be greater than 10 years per patient. Patient is concerned due to history of frequent skin infections and cellulitis. She denies any other injury. Onset: Today Duration: Constant Location: Reports: Lower Extremity, Left Quality: Reports: Ache Severity: Severe Improves with: Reports: None Worsens with: Reports: None Associated Symptoms: Reports: No Other Symptoms Left Lower Leg Pain Score (Numeric/FACES): 10 - Related Data Allergies Allergy/AdvReac Type Severity Reaction Status Date / Time codeine Allergy Hives Verified 11/13/19 21:19 propoxyphene napsylate Allergy Rash Verified 11/13/19 21:19 [From Darvocet-N 100] Home Meds: Home Meds Aspirin [Ecotrin EC] 81 mg PO DAILY 11/14/19 [History] Glimepiride [Amaryl] 1 mg PO WITHBREAKFAST 11/14/19 [History] Losartan [Cozaar] 100 mg PO DAILY 11/14/19 [History] Metoprolol Succinate [Toprol XL] 25 mg PO DAILY 11/14/19 [History] Varenicline Tartrate [Chantix] 1 mg PO BID 11/14/19 [History] atorvaSTATin [Lipitor] 10 mg PO BEDTIME 11/14/19 [History] Linezolid [Zyvox] 600 mg PO Q12H 7 Days #14 tab 11/16/19 [Rx] Past Medical History HEENT History: Reports: None Cardiovascular History: Reports: Hypertension, Other (See Below) Other Cardiovascular History: edema with chronic venous stasis Respiratory History: Reports: Asthma Other Respiratory History: use a CPAP Gastrointestinal History: Reports: None Genitourinary History: Reports: None BIOINFORMATICS SCIENTIST History: Reports: Musculoskeletal History: Reports: None Neurological History: Reports: Headaches, Chronic Psychiatric History: Reports: None Endocrine/Metabolic History: Reports: Diabetes, Type II, Obesity/BMI 30+ Hematologic History: Reports: None Immunologic History: Reports: None Oncologic (Cancer) History: Reports: None Dermatologic History: Reports: Cellulitis, Venous Stasis Dermatitis - Infectious Disease History Infectious Disease History: Reports: MRSA - Past Surgical History HEENT Surgical History: Reports: Tonsillectomy Cardiovascular Surgical History: Reports: None Respiratory Surgical History: Reports: None GI Surgical History: Reports: Appendectomy, Cholecystectomy Female Surgical History: Reports: Section Neurological Surgical History: Reports: None Musculoskeletal Surgical History: Reports: None Social & Family History - Family History Family Medical History: Noncontributory - Caffeine Use Caffeine Use: Reports: Soda, Tea - Living Situation & Occupation Living situation: Reports: , with Family Occupation: Disabled Review of Systems - Review of Systems Review Of Systems: Comprehensive ROS is negative, except as noted in HPI. ED EXAM, GENERAL - Physical Exam Exam: See Below Exam Limited By: No Limitations General Appearance: Alert, WD/WN, No Apparent Distress, Obese Head: Atraumatic, Normocephalic Neck: Normal Inspection Respiratory/Chest: No Respiratory Distress, Lungs Clear, Normal Breath Sounds, No Accessory Muscle Use, Chest Non-Tender Cardiovascular: Normal Peripheral Pulses, Regular Rate, Rhythm Extremities: Other (left anterior medial lower leg has a 20cm curvalinear laceration to the depth of deep subcutaneous fat layer with small amount of active bleeding. No foreign body. ) Neurological: Alert, Oriented, No Motor/Sensory Deficits Psychiatric: Normal Affect, Normal Mood Skin Exam: Warm, Dry ED TRAUMA EXTREMITY PROCEDURES - Laceration/Wound Repair Left Lower Anterior Medial Leg Lac/Wound Length In cm: 20 Appearance: Subcutaneous, Linear, Clean Distal NVT: Neuro & Vascular Intact, No Tendon Injury Anesthetic Type: Local Local Anesthesia - Lidocaine (Xylocaine): 1% Plain (30cc) Local Anesthesia - Bupivicaine (Marcaine): 0.25% Plain (30cc) Skin Prep: Chlorhexidine (Hibiciens), Saline, Sterile Drape Saline Irrigation (cc's): 1,000 Exploration/Debridement/Repair: Wound Explored, In a Bloodless Field, Explored to Base, Moderate Debridement, Moderately Undermined, No Foreign Material Found Closed With: Sutures Suture Size: 2-0 # of Sutures: 36 Suture Type: Nylon, Running (32), Mattress (x4) Suture Size: 3-0 # of Sutures: 32 Repaired With: Vicryl Drain Placement: No Sterile Dressing Applied: Nurse Tetanus Status Addressed: Yes Complications: No Course - Vital Signs Last Recorded V/S: Last Vital Signs Temp 98.2 F 12/21/19 17:27 Pulse 93 12/21/19 17:27 Resp 18 12/21/19 17:27 BP 160/86 H 12/21/19 17:27 Pulse Ox 95 12/21/19 17:27 - Orders/Labs/Meds Orders: Active Orders 24 hr Category Date Time Status Peripheral IV Care [RC] . DIRECTED Care 12/21/19 17:40 Active Sodium Chloride 0.9% [Saline Flush] Med 12/21/19 17:39 Active 10 ml FLUSH ASDIRECTED PRN Peripheral IV Insertion Adult [OM.PC] Stat Oth 12/21/19 17:39 Ordered Medication Orders Sodium Chloride (Saline Flush) 10 ml FLUSH ASDIRECTED PRN PRN Reason: Keep Vein Open Last Admin: 12/21/19 19:06 Dose: 10 ml Meds: Medications Generic Name Dose Route Start Last Admin Trade Name Freq PRN Reason Stop Dose Admin Sodium Chloride 10 ml 12/21/19 17:39 12/21/19 19:06 Saline Flush FLUSH 10 ml ASDIRECTED PRN Administration Keep Vein Open Discontinued Medications Generic Name Dose Route Start Last Admin Trade Name Freq PRN Reason Stop Dose Admin Bupivacaine HCl 30 ml 12/21/19 17:41 12/21/19 18:27 Sensorcaine-Mpf 0.25% INJECT 12/21/19 17:42 Not Given ONETIME ONE Bupivacaine HCl 20 ml 12/21/19 18:00 12/21/19 18:19 Sensorcaine-Mpf 0.25% INJECT 12/21/19 18:01 20 ml ONETIME ONE Administration Bupivacaine HCl 30 ml 12/21/19 18:00 12/21/19 18:18 Marcaine 0.5% INJECT 12/21/19 18:01 30 ml ONETIME ONE Administration Hydromorphone HCl 1 mg 12/21/19 17:41 12/21/19 18:22 Dilaudid IVPUSH 12/21/19 17:42 1 mg ONETIME ONE Administration Cefazolin Sodium/Dextrose 2 gm 50 mls @ 100 mls/hr 12/21/19 17:40 12/21/19 18 :26 / Premix IV 12/21/19 18:09 100 mls/hr ONETIME ONE Administration Lidocaine HCl 30 ml 12/21/19 17:41 12/21/19 18:18 Xylocaine-Mpf 1% INJECT 12/21/19 17:42 30 ml ONETIME ONE Administration Ondansetron HCl 4 mg 12/21/19 17:40 12/21/19 18:19 Zofran IV 12/21/19 17:41 4 mg ONETIME ONE Administration Departure - Departure Time of Disposition: 19:26 Disposition: Home, Self-Care 01 Condition: Good Clinical Impression: Laceration of left lower leg Qualifiers: Encounter type: initial encounter Qualified Code(s): S81.812A - Laceration without foreign body, left lower leg, initial encounter - Discharge Information *PRESCRIPTION DRUG MONITORING PROGRAM REVIEWED*: Not Applicable *COPY OF PRESCRIPTION DRUG MONITORING REPORT IN PATIENT BASHIR: Not Applicable Instructions: Laceration Care, Adult Forms: ED Department Discharge Additional Instructions: Rx: Cephalexin 500mg Rx: [place] 5mg/325mg Rest and elevate your left leg. Follow up in clinic in 3 to 4 days for wound check, and in 10 days for suture removal. Sepsis Event Note (ED) - Focused Exam Vital Signs: Vital Signs Temp Pulse Resp BP Pulse Ox 12/21/19 17:27 98.2 F 93 18 160/86 H 95 - My Orders Last 24 Hours: My Active Orders 12/21/19 17:39 Sodium Chloride 0.9% [Saline Flush] 10 ml FLUSH ASDIRECTED PRN Peripheral IV Insertion Adult [OM.PC] Stat 12/21/19 17:40 Peripheral IV Care [RC] . DIRECTED - Assessment/Plan Last 24 Hours: My Active Orders 12/21/19 17:39 Sodium Chloride 0.9% [Saline Flush] 10 ml FLUSH ASDIRECTED PRN Peripheral IV Insertion Adult [OM.PC] Stat 12/21/19 17:40 Peripheral IV Care [RC] . DIRECTED I have read and agree with the documentation that has been completed regarding this visit. By signing this record, I attest that the documentation was completed in my physical presence and is an accurate record of the encounter.
== END 2019-12-21 19:42 | disposition home or self-care (01) ==
LOC: DL.ED 17:13
DX: S81.812A Laceration without foreign body, left lower leg, initial encounter (principal); I10 Essential (primary) hypertension; E66.9 Obesity, unspecified; E11.9 Type 2 diabetes mellitus without complications; Z88.5 Allergy status to narcotic agent; Z88.8 Allergy status to other drugs, medicaments and biological substances; Z79.82 Long term (current) use of aspirin; Z79.899 Other long term (current) drug therapy; Z68.44 Body mass index [BMI] 60.0-69.9, adult; W26.9XXA Contact with unspecified sharp object(s), initial encounter
CPT/HCPCS: 12005; 96365; 96375; 99283; J0690; J1170; J2001; J2405; J3490

== ENCOUNTER 2020-06-14 03:41 | Inpatient (IN) | payer MEDICAID ==
[2020-06-14] MEDS ORDERED: Ondansetron 4 MG Tab.DIS PO ONE (03:46)
[2020-06-14] MEDS ORDERED: Acetaminophen 325 MG Tab PO ONE (03:46)
[2020-06-14] MEDS ORDERED: diphenhydrAMINE 50 MG/ML SDV IVPUSH ONE (04:07)
--- NOTE | 2020-06-14 04:42 | EDM.PDOC ---
<Chloe Bryan - Last Filed: 06/14/20 06:48> ED HPI GENERAL MEDICAL PROBLEM - General Chief Complaint: Fever Stated Complaint: AMBULANCE Time Seen by Provider: 06/14/20 04:43 Source of Information: Reports: Patient History Limitations: Reports: No Limitations - History of Present Illness INITIAL COMMENTS - FREE TEXT/NARRATIVE: ED via [facility], fever cough since yesterday, increased left leg pain since last night. Has not taken anything for fever. COVID exposure with daughter. Off quarantine on 06/11. No sx during that time. Chronic Lower extremity edema, previous episodes of cellulitis. LLeft leg wrapped yesterday no redness to leg at that time. Chronic wound left leg from large laceration in December. Nausea no vomiting or diarrhea. No loss of taste or smell. Dizzy at times. Hx asthma, smokes 1/2 cigarrete per day. no inhalers. NIDDM normal blood sugars at home 87- 100. No urinary c/o. No hx of blood clots. Left Lower Leg Pain Score (Numeric/FACES): 5 - Related Data Allergies Allergy/AdvReac Type Severity Reaction Status Date / Time codeine Allergy Hives Verified 06/14/20 07:34 propoxyphene napsylate Allergy Rash Verified 06/14/20 07:34 [From Darcet-N 100] Home Meds: Home Meds Aspirin [Ecotrin EC] 81 mg PO DAILY 11/14/19 [History] Losartan [Cozaar] 100 mg PO DAILY 11/14/19 [History] Metoprolol Succinate [Toprol XL] 25 mg PO DAILY 11/14/19 [History] atorvaSTATin [Lipitor] 10 mg PO BEDTIME 11/14/19 [History] Glimepiride 1 mg PO ACBREAKFAST 06/14/20 [History] Lidocaine 5% [Lidoderm 5%] 1 patch TOP DAILY 06/14/20 [History] traZODone HCl [Trazodone HCl] 50 mg PO BEDTIME 06/14/20 [History] Past Medical History HEENT History: Reports: None Cardiovascular History: Reports: Hypertension, Other (See Below) Other Cardiovascular History: edema with chronic venous stasis Respiratory History: Reports: Asthma Other Respiratory History: use a CPAP Gastrointestinal History: Reports: None Genitourinary History: Reports: None 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: Musculoskeletal History: Reports: None Neurological History: Reports: Headaches, Chronic Psychiatric History: Reports: None Endocrine/Metabolic History: Reports: Diabetes, Type II, Obesity/BMI 30+ Hematologic History: Reports: None Immunologic History: Reports: None Oncologic (Cancer) History: Reports: None Dermatologic History: Reports: Cellulitis, Venous Stasis Dermatitis - Infectious Disease History Infectious Disease History: Reports: MRSA - Past Surgical History HEENT Surgical History: Reports: Tonsillectomy Cardiovascular Surgical History: Reports: None Respiratory Surgical History: Reports: None GI Surgical History: Reports: Appendectomy, Cholecystectomy Female Surgical History: Reports: Section Endocrine Surgical History: Reports: None Neurological Surgical History: Reports: None Musculoskeletal Surgical History: Reports: None Dermatological Surgical History: Reports: None Social & Family History - Family History Family Medical History: No Pertinent Family History - Tobacco Use Tobacco Use Status *Q: Current Every Day Tobacco User Years of Tobacco use: 31 Packs/Tins Daily: 0.1 Second Hand Smoke Exposure: Yes - Caffeine Use Caffeine Use: Reports: None - Recreational Drug Use Recreational Drug Use: No - Living Situation & Occupation Living situation: Reports: , with Family Occupation: Disabled ED ROS GENERAL - Review of Systems Review Of Systems: Comprehensive ROS is negative, except as noted in HPI. ED EXAM, GENERAL - Physical Exam Exam: See Below Exam Limited By: No Limitations General Appearance: Alert, Mild Distress, Obese Eye Exam: Bilateral Eye: EOMI Ears: Normal External Exam, Hearing Grossly Normal Nose: Normal Inspection Throat/Mouth: Normal Voice Head: Atraumatic, Normocephalic Neck: Normal Inspection Respiratory/Chest: No Respiratory Distress, Wheezing, Other (dry cough) Cardiovascular: Normal Peripheral Pulses, Tachycardia GI/Abdominal: Normal Bowel Sounds, Soft, Non-Tender Extremities: Pedal Edema, Leg Pain (left), Increased Warmth, Redness (left below knee to ankle warm) Neurological: Alert, Oriented, Normal Cognition Psychiatric: Normal Affect, Normal Mood Skin Exam: Warm, Dry, Erythema (left lower leg) Course - Re-Assessments/Exams Free Text/Narrative Re-Assessment/Exam: 06/14/20 05:38 Patient informed results positive COVID. Unsuccessful attempt for 2nd blood culture. 06/14/20 06:[address] Mehrdad DÍAZ hospitalist. Admit inpatient. Cellulitis left lower leg and COVID positive. Departure - Departure Time of Disposition: 06:44 Disposition: Admitted As Inpatient 65 Condition: Fair Clinical Impression: COVID-19, Cough in adult patient, History of COPD, Tobacco consumption Cellulitis Qualifiers: Site of cellulitis: extremity Site of cellulitis of extremity: lower extremity Laterality: left Qualified Code(s): L03.116 - Cellulitis of left lower limb Diabetes Qualifiers: Diabetes mellitus type: type 2 Diabetes mellitus terminal superintendent insulin use: without terminal superintendent use Diabetes mellitus complication status: with kidney complications Diabetes mellitus complication detail: with chronic kidney disease Chronic kidney disease stage: unspecified stage Qualified Code(s): E11.22 - Type 2 diabetes mellitus with diabetic chronic kidney disease - Discharge Information *PRESCRIPTION DRUG MONITORING PROGRAM REVIEWED*: No *COPY OF PRESCRIPTION DRUG MONITORING REPORT IN PATIENT BASHIR: No Sepsis Event Note (ED) - Evaluation Sepsis Screening Result: Possible Sepsis Risk <Richelle Guzman - Last Filed: 06/14/20 10:11> Course - Vital Signs Last Recorded V/S: Last Vital Signs Temp 98 F 06/14/20 07:15 Pulse 109 H 06/14/20 07:15 Resp 20 06/14/20 07:15 BP 124/64 06/14/20 07:15 Pulse Ox 95 06/14/20 07:15 - Orders/Labs/Meds Orders: Active Orders 24 hr Category Date Time Status CULTURE BLOOD [BC] Stat Lab 06/14/20 04:06 Received Sodium Chloride 0.9% [Normal Saline] 1,000 ml Med 06/14/20 05:00 Active IV ASDIRECTED Blood Culture x2 Reflex Set [OM.PC] Stat Oth 06/14/20 03:38 Ordered Isolation [COMM] Routine Oth 06/14/20 03:40 Active Medication Orders Acetaminophen (Tylenol) 650 mg PO Q4H PRN PRN Reason: Pain Aspirin (Halfprin) 81 mg PO DAILY [facility]SH[facility] Dextrose/Water (Dextrose 50% In Water) 25 ml IVPUSH ASDIRECTED PRN PRN Reason: Hypoglycemia Dextrose/Water (Dextrose 50% In Water) 50 ml IV ASDIRECTED PRN PRN Reason: Hypoglycemia Enoxaparin Sodium (Lovenox) 40 mg SUBCUT BID ASHLY Last Admin: 06/14/20 09:48 Dose: 40 mg Documented by: DEBRA Glucagon (Glucagen) 1 mg IM ONETIME PRN PRN Reason: Hypoglycemia Glucagon (Glucagen) 1 mg IM ASDIRECTED PRN PRN Reason: Hypoglycemia Sodium Chloride (Normal Saline) 1,000 mls @ 100 mls/hr IV ASDIRECTED [facility] Last Admin: 06/14/20 04:56 Dose: 100 mls/hr Documented by: SHERI Sodium Chloride (Normal Saline) 1,000 mls @ 100 mls/hr IV ASDIRECTED [facility] Piperacillin Sod/Tazobactam (Sod 3.375 gm/ Sodium Chloride) 100 mls @ 200 mls/hr IV Q6HR [facility] Last Admin: 06/14/20 09:48 Dose: 200 mls/hr Documented by: DEBRA Vancomycin HCl 1.5 gm/ Premix 300 mls @ 200 mls/hr IV Q24H [facility] Insulin Human Lispro (Humalog) 0 unit SUBCUT WITHMEALSANDBED [facility]; Protocol Metoprolol Succinate (Toprol Xl) 25 mg PO DAILY [facility] Ondansetron HCl (Zofran Odt) 4 mg PO Q6H PRN PRN Reason: nausea, able to take PO Ondansetron HCl (Zofran) 4 mg IVPUSH Q6H PRN PRN Reason: Nausea/Vomiting Senna/Docusate Sodium (Senna Plus) 1 tab PO BEDTIME PRN PRN Reason: Constipation Vancomycin HCl (Pharmacy To Dose - Vancomycin) 0 dose .XX ASDIRECTED [facility] Labs: Laboratory Tests 06/14/20 06/14/20 06/14/20 Range/Units 03:50 04:06 04:06 WBC 20.7 H (5.0-10.0) 10^3/uL RBC 5.34 (4.2-5.4) 10^6/uL Hgb 13.0 (12.0-16.0) g/dL Hct 41.0 (37.0-47.0) % MCV 76.8 L D (80-100) fL MCH 24.3 L (27.0-34.0) pg MCHC 31.7 L (33.0-35.0) g/dL Plt Count 163 (150-450) 10^3/uL Neut % (Auto) 94.3 H (42.2-75.2) % Lymph % (Auto) 4.0 L (20.5-50.1) % [place] % (Auto) 1.7 L (2-8) % Eos % (Auto) 0.0 L (1.0-3.0) % Baso % (Auto) 0.0 (0.0-1.0) % Add Manual Diff Yes Neutrophils % (Manual) 84 H (42-75) % Band Neutrophils % 9 % Lymphocytes % (Manual) 5 L (20-50) % Monocytes % (Manual) 2 (2-8) % Platelet Estimate Adequate PT (9.0-12.0) SEC INR (0.9-1.2) D-Dimer, Quantitative (0-400) ng/mL Sodium 133 L (136-145) mmol/L Potassium 3.4 L (3.5-5.1) mmol/L Chloride 99 (98-107) mmol/L Carbon Dioxide 21 (21-32) mmol/L Anion Gap 16.4 H (7-13) mEq/L BUN 17 (7-18) mg/dL Creatinine 1.28 H (0.55-1.02) mg/dL Est Cr Clr Drug Dosing 45.43 mL/min Estimated GFR (MDRD) 45 BUN/Creatinine Ratio 13.3 (No establ ref range) Glucose 167 H (74-99) mg/dL Lactic Acid (0.4-2.0) mmol/L Calcium 8.1 L (8.5-10.1) mg/dL Total Bilirubin 0.8 (0.2-1.0) mg/dL AST 18 (15-37) U/L ALT 38 (14-59) U/L Alkaline Phosphatase 97 (46-116) U/L C-Reactive Protein (0.0-0.9) mg/dL Total Protein 7.4 (6.4-8.2) g/dL Albumin 2.8 L (3.4-5.0) g/dL Globulin 4.6 Albumin/Globulin Ratio 0.61 Amylase 20 L (25-115) U/L Lipase 42 L (73-393) U/L SARS-CoV-2 RNA (JOSE CARLOS) Positive H (NEGATIVE) 06/14/20 06/14/20 06/14/20 Range/Units 04:06 04:06 04:06 WBC (5.0-10.0) 10^3/uL RBC (4.2-5.4) 10^6/uL Hgb (12.0-16.0) g/dL Hct (37.0-47.0) % MCV (80-100) fL MCH (27.0-34.0) pg MCHC (33.0-35.0) g/dL Plt Count (150-450) 10^3/uL Neut % (Auto) (42.2-75.2) % Lymph % (Auto) (20.5-50.1) % [place] % (Auto) (2-8) % Eos % (Auto) (1.0-3.0) % Baso % (Auto) (0.0-1.0) % Add Manual Diff Neutrophils % (Manual) (42-75) % Band Neutrophils % % Lymphocytes % (Manual) (20-50) % Monocytes % (Manual) (2-8) % Platelet Estimate PT 12.1 H (9.0-12.0) SEC INR 1.3 H (0.9-1.2) D-Dimer, Quantitative 2250 H (0-400) ng/mL Sodium (136-145) mmol/L Potassium (3.5-5.1) mmol/L Chloride (98-107) mmol/L Carbon Dioxide (21-32) mmol/L Anion Gap (7-13) mEq/L BUN (7-18) mg/dL Creatinine (0.55-1.02) mg/dL Est Cr Clr Drug Dosing mL/min Estimated GFR (MDRD) BUN/Creatinine Ratio (No establ ref range) Glucose (74-99) mg/dL Lactic Acid 1.6 (0.4-2.0) mmol/L Calcium (8.5-10.1) mg/dL Total Bilirubin (0.2-1.0) mg/dL AST (15-37) U/L ALT (14-59) U/L Alkaline Phosphatase (46-116) U/L C-Reactive Protein 36.9 H (0.0-0.9) mg/dL Total Protein (6.4-8.2) g/dL Albumin (3.4-5.0) g/dL Globulin Albumin/Globulin Ratio Amylase (25-115) U/L Lipase (73-393) U/L SARS-CoV-2 RNA (JOSE CARLOS) (NEGATIVE) Meds: Medications Generic Name Dose Route Start Last Admin Trade Name Roney PRN Reason Stop Dose Admin Acetaminophen 650 mg 06/14/20 08:13 Tylenol PO Q4H PRN Pain Aspirin 81 mg 06/15/20 09:30 Halfprin PO DAILY ASHLY Dextrose/Water 25 ml 06/14/20 09:12 Dextrose 50% In Water IVPUSH ASDIRECTED PRN Hypoglycemia Dextrose/Water 50 ml 06/14/20 09:12 Dextrose 50% In Water IV ASDIRECTED PRN Hypoglycemia Enoxaparin Sodium 40 mg 06/14/20 09:00 06/14/20 09:48 Lovenox SUBCUT 40 mg BID ASHLY Administration Glucagon 1 mg 06/14/20 09:12 Glucagen IM ONETIME PRN Hypoglycemia Glucagon 1 mg 06/14/20 09:12 Glucagen IM ASDIRECTED PRN Hypoglycemia Sodium Chloride 1,000 mls @ 100 mls/hr 06/14/20 05:00 06/14/20 04:56 Normal Saline IV 100 mls/hr ASDIRECTED ASHLY Administration Sodium Chloride 1,000 mls @ 100 mls/hr 06/14/20 08:15 Normal Saline IV ASDIRECTED [facility] Piperacillin Sod/Tazobactam 100 mls @ 200 mls/hr 06/14/20 09:00 06/14/20 09:48 Sod 3.375 gm/ Sodium Chloride IV 200 mls/hr Q6HR [facility] Administration Vancomycin HCl 1.5 gm/ Premix 300 mls @ 200 mls/hr 06/15/20 04:30 IV Q24H [facility] Insulin Human Lispro 0 unit 06/14/20 12:00 Humalog SUBCUT WITHMEALSANDBED [facility] Protocol Metoprolol Succinate 25 mg 06/15/20 09:30 Toprol Xl PO DAILY [facility] Ondansetron HCl 4 mg 06/14/20 08:13 Zofran Odt PO Q6H PRN nausea, able to take PO Ondansetron HCl 4 mg 06/14/20 08:13 Zofran IVPUSH Q6H PRN Nausea/Vomiting Senna/Docusate Sodium 1 tab 06/14/20 08:13 Senna Plus PO BEDTIME PRN Constipation Vancomycin HCl 0 dose 06/14/20 08:13 Pharmacy To Dose - Vancomycin .XX ASDIRECTED [facility]SH[facility] Discontinued Medications Generic Name Dose Route Start Last Admin Trade Name Roney PRN Reason Stop Dose Admin Acetaminophen 650 mg 06/14/20 03:46 06/14/20 03:55 Tylenol PO 06/14/20 03:47 650 mg NOW ONE Administration Dexamethasone 6 mg 06/14/20 05:33 06/14/20 05:39 Decadron IVPUSH 06/14/20 05:34 6 mg ONETIME ONE Administration Diphenhydramine HCl 50 mg 06/14/20 04:07 06/14/20 04:15 Benadryl IVPUSH 06/14/20 04:08 50 mg ONETIME ONE Administration Vancomycin HCl 2,000 mg/ 500 mls @ 333.333 mls/hr 06/14/20 04:07 06/14/20 06:31 Sodium Chloride IV 06/14/20 05:36 Not Given ONETIME ONE Vancomycin HCl 1 gm/ Sodium 250 mls @ 167 mls/hr 06/14/20 04:19 06/14/20 04:26 Chloride IV 06/14/20 05:48 167 mls/hr ONETIME ONE Administration Vancomycin HCl 1 gm/ Sodium 250 mls @ 167 mls/hr 06/14/20 04:21 06/14/20 06:31 Chloride IV 06/14/20 05:50 167 mls/hr ONETIME ONE Administration Ondansetron HCl 4 mg 06/14/20 03:46 06/14/20 03:56 Zofran Odt PO 06/14/20 03:47 4 mg ONETIME ONE Administration Sepsis Event Note (ED) - Focused Exam Vital Signs: Vital Signs Temp Pulse Resp BP BP Pulse Ox 06/14/20 06:13 101.0 F H 117 H 16 102/53 L 92 L 06/14/20 04:59 113/55 L 06/14/20 04:52 103.5 F H 118/100 H 06/14/20 03:53 102.1 F H 06/14/20 03:46 98.9 F 142 H 20 131/62 95
[2020-06-14 04:53] LABS: ANION GAP 16.4 mEq/L (7-13)
[2020-06-14] MEDS ORDERED: Sodium Chloride 0.9% 1,000 ML IV SCH (05:00)
[2020-06-14] MEDS ORDERED: Dexamethasone 4 MG/ML SDV IVPUSH ONE (05:33)
--- NOTE | 2020-06-14 06:25 | CT ---
PROCEDURE INFORMATION: Exam: CT Chest Without Contrast; Diagnostic Exam date and time: 06/14/2020 5:29 AM Age: 45 years old Clinical indication: Cough; Additional info: Covid, cough fever, +ddimer left leg cellulitis TECHNIQUE: Imaging protocol: Diagnostic computed tomography of the chest without contrast. Radiation optimization: All CT scans at this facility use at least one of these dose optimization techniques: automated exposure control; mA and/or kV adjustment per patient size (includes targeted exams where dose is matched to clinical indication); or iterative reconstruction. COMPARISON: CR Chest 2V 07/11/2014 11:00 PM FINDINGS: Lungs: COPD. Pleural space: No definite acute infiltrate or effusion. Heart: Unremarkable. No cardiomegaly. No pericardial effusion. Aorta: Unremarkable. No aortic aneurysm. Lymph nodes: Unremarkable. No enlarged lymph nodes. Bones/joints: Unremarkable. No acute fracture. Soft tissues: Unremarkable. IMPRESSION: 1. Underlying COPD. 2. No acute infiltrate or pleural effusion.
[2020-06-14] MEDS ORDERED: Acetaminophen 325 MG Tab PO PRN (08:13)
[2020-06-14] MEDS ORDERED: Ondansetron 4 MG Tab.DIS PO PRN (08:13)
[2020-06-14] MEDS ORDERED: Ondansetron 4 MG/2 ML SDV IVPUSH PRN (08:13)
[2020-06-14] MEDS ORDERED: Glucagon,Human Recombinant 1 MG Vial IM PRN ×2 (09:12)
[2020-06-14] MEDS ORDERED: 50% Dextrose in Water 50 ML Syringe IVPUSH PRN (09:12)
[2020-06-14] MEDS ORDERED: 50% Dextrose in Water 50 ML Syringe IV PRN (09:12)
[2020-06-14] MEDS: Enoxaparin 40 MG/0.4 ML Syringe SUBCUT SCH ×2 (09:48→20:44)
[2020-06-14] MEDS: Piperacillin/Tazobactam 3.375 GM in Sodium Chloride 0.9% 100 ML IV SCH ×4 (09:48→23:53)
--- NOTE | 2020-06-14 10:01 | PCM.HP ---
H&P History of Present Illness - General Date of Service: 06/14/20 Admit Problem/Dx: Admission Diagnosis/Problem Admission Diagnosis/Problem Cellulitis Source of Information: Patient, Old Records, Provider - History of Present Illness Initial Comments - Free Text/Narative: Patient is a 45-year-old female with medical history significant for type 2 diabetes on oral diabetes medication, CKD stage III, bronchial asthma, hypertension, recurrent cellulitis who presented to the ED with complaints of fever, cough, and increased leg pain starting yesterday night. Reports that she has not taken any medication for her symptoms. Reports that her daughter and her family tested positive for COVID-19 morning and was supposed to be of quarantine on day seventh of this month. States that they came to visit her 2 days ago. Reports that she started having cough and fever last night with gener al body aches. States that she noticed that her left lower extremity was red and painful last night. Had been wrapped earlier today and it was not right. Denies shortness of breath, chest pain, nausea, vomiting, diarrhea, constipation, dysuria, hematuria, changes in taste or smell, loss of appetite, or any other symptoms. In the ED, patient was noted to have temperature of 103.5 with heart rate of 117. Systolic blood pressures range from 102-118 and diastolic blood pressures range from 53-100. Respiratory rate ranged from 16-20. White count was elevated at 20.3 with hemoglobin of 13.0. Potassium was low at 3.4 creatinine was 1.28. Patient's D-dimer was elevated at 2250 with COVID-19 screen came back positive. She received a dose of vancomycin. Left Lower Leg Pain Score (Numeric/FACES): 5 - Related Data Allergies/Adverse Reactions: Allergies Allergy/AdvReac Type Severity Reaction Status Date / Time codeine Allergy Hives Verified 06/14/20 07:34 propoxyphene napsylate Allergy Rash Verified 06/14/20 07:34 [From Darvocet-N 100] Home Medications: Home Meds Aspirin [Ecotrin EC] 81 mg PO DAILY 11/14/19 [History] Losartan [Cozaar] 100 mg PO DAILY 11/14/19 [History] Metoprolol Succinate [Toprol XL] 25 mg PO DAILY 11/14/19 [History] atorvaSTATin [Lipitor] 10 mg PO BEDTIME 11/14/19 [History] Glimepiride 1 mg PO ACBREAKFAST 06/14/20 [History] Lidocaine 5% [Lidoderm 5%] 1 patch TOP DAILY 06/14/20 [History] traZODone HCl [Trazodone HCl] 50 mg PO BEDTIME 06/14/20 [History] Past Medical History HEENT History: Reports: None Cardiovascular History: Reports: Hypertension, Other (See Below) Other Cardiovascular History: edema with chronic venous stasis Respiratory History: Reports: Asthma Other Respiratory History: use a CPAP Gastrointestinal History: Reports: None Genitourinary History: Reports: None [employer] History: Reports: Other OB/BYN History: 3 c-sections Musculoskeletal History: Reports: None Neurological History: Reports: Headaches, Chronic Psychiatric History: Reports: None Endocrine/Metabolic History: Reports: Diabetes, Type II, Obesity/BMI 30+ Hematologic History: Reports: None Immunologic History: Reports: None Oncologic (Cancer) History: Reports: None Dermatologic History: Reports: Cellulitis, Venous Stasis Dermatitis - Infectious Disease History Infectious Disease History: Reports: MRSA - Past Surgical History HEENT Surgical History: Reports: Tonsillectomy Cardiovascular Surgical History: Reports: None Respiratory Surgical History: Reports: None GI Surgical History: Reports: Appendectomy, Cholecystectomy Female Surgical History: Reports: Section Endocrine Surgical History: Reports: None Neurological Surgical History: Reports: None Musculoskeletal Surgical History: Reports: None Dermatological Surgical History: Reports: None Social & Family History - Family History Family Medical History: No Pertinent Family History - Tobacco Use Tobacco Use Status *Q: Current Every Day Tobacco User Years of Tobacco use: 31 Packs/Tins Daily: 0.1 Second Hand Smoke Exposure: Yes - Caffeine Use Caffeine Use: Reports: None - Recreational Drug Use Recreational Drug Use: No - Living Situation & Occupation Living situation: Reports: , with Family Occupation: Disabled H&P Review of Systems - Review of Systems: Review Of Systems: Comprehensive ROS is negative, except as noted in HPI. Exam - Exam Exam: See Below - Vital Signs Vital Signs: Last Vital Signs Temp 98 F 06/14/20 07:15 Pulse 109 H 06/14/20 07:15 Resp 20 06/14/20 07:15 BP 124/64 06/14/20 07:15 Pulse Ox 95 06/14/20 07:15 Weight: 366 lb 3.2 oz - Exam General: Alert, Oriented, Cooperative HEENT: Conjunctiva Clear, EOMI, Hearing Intact, Mucosa Moist & [place]ck: Supple Lungs: Clear to Auscultation, Normal Respiratory Effort Cardiovascular: Regular Rate, Regular Rhythm, Normal S1, Normal S2 GI/Abdominal Exam: Normal Bowel Sounds, Soft, Non-Tender Extremities: Pedal Edema, Leg Pain, Redness (Patient with bilateral chronic venous stasis changes of the lower legs. Has worsened redness of the left lower leg almost circumferentially and from the ankle to the knee. Warm to touch and tender to touch.) Peripheral Pulses: 2+: Radial (R), Dorsalis Pedis (L), Dorsalis Pedis (R) Skin: Warm, Dry, Intact Neuro Extensive - Mental Status: Alert, Oriented x3, Normal Mood/Affect, Normal Cognition, Memory Intact Psychiatric: Alert, Normal Affect, Normal Mood - Patient Data Lab Results Last 24 hrs: Laboratory Results - last 24 hr 06/14/20 06/14/20 06/14/20 Range/Units 03:50 04:06 04:06 WBC 20.7 H (5.0-10.0) 10^3/uL RBC 5.34 (4.2-5.4) 10^6/uL Hgb 13.0 (12.0-16.0) g/dL Hct 41.0 (37.0-47.0) % MCV 76.8 L D (80-100) fL MCH 24.3 L (27.0-34.0) pg MCHC 31.7 L (33.0-35.0) g/dL Plt Count 163 (150-450) 10^3/uL Neut % (Auto) 94.3 H (42.2-75.2) % Lymph % (Auto) 4.0 L (20.5-50.1) % [place] % (Auto) 1.7 L (2-8) % Eos % (Auto) 0.0 L (1.0-3.0) % Baso % (Auto) 0.0 (0.0-1.0) % Add Manual Diff Yes Neutrophils % (Manual) 84 H (42-75) % Band Neutrophils % 9 % Lymphocytes % (Manual) 5 L (20-50) % Monocytes % (Manual) 2 (2-8) % Platelet Estimate Adequate PT (9.0-12.0) SEC INR (0.9-1.2) D-Dimer, Quantitative (0-400) ng/mL Sodium 133 L (136-145) mmol/L Potassium 3.4 L (3.5-5.1) mmol/L Chloride 99 (98-107) mmol/L Carbon Dioxide 21 (21-32) mmol/L Anion Gap 16.4 H (7-13) mEq/L BUN 17 (7-18) mg/dL Creatinine 1.28 H (0.55-1.02) mg/dL Est Cr Clr Drug Dosing 45.43 mL/min Estimated GFR (MDRD) 45 BUN/Creatinine Ratio 13.3 (No establ ref range) Glucose 167 H (74-99) mg/dL POC Glucose (70-105) mg/dl Lactic Acid (0.4-2.0) mmol/L Calcium 8.1 L (8.5-10.1) mg/dL Total Bilirubin 0.8 (0.2-1.0) mg/dL AST 18 (15-37) U/L ALT 38 (14-59) U/L Alkaline Phosphatase 97 (46-116) U/L C-Reactive Protein (0.0-0.9) mg/dL Total Protein 7.4 (6.4-8.2) g/dL Albumin 2.8 L (3.4-5.0) g/dL Globulin 4.6 Albumin/Globulin Ratio 0.61 Amylase 20 L (25-115) U/L Lipase 42 L (73-393) U/L SARS-CoV-2 RNA (JOSE CARLOS) Positive H (NEGATIVE) 06/14/20 06/14/20 06/14/20 Range/Units 04:06 04:06 04:06 WBC (5.0-10.0) 10^3/uL RBC (4.2-5.4) 10^6/uL Hgb (12.0-16.0) g/dL Hct (37.0-47.0) % MCV (80-100) fL MCH (27.0-34.0) pg MCHC (33.0-35.0) g/dL Plt Count (150-450) 10^3/uL Neut % (Auto) (42.2-75.2) % Lymph % (Auto) (20.5-50.1) % [place] % (Auto) (2-8) % Eos % (Auto) (1.0-3.0) % Baso % (Auto) (0.0-1.0) % Add Manual Diff Neutrophils % (Manual) (42-75) % Band Neutrophils % % Lymphocytes % (Manual) (20-50) % Monocytes % (Manual) (2-8) % Platelet Estimate PT 12.1 H (9.0-12.0) SEC INR 1.3 H (0.9-1.2) D-Dimer, Quantitative 2250 H (0-400) ng/mL Sodium (136-145) mmol/L Potassium (3.5-5.1) mmol/L Chloride (98-107) mmol/L Carbon Dioxide (21-32) mmol/L Anion Gap (7-13) mEq/L BUN (7-18) mg/dL Creatinine (0.55-1.02) mg/dL Est Cr Clr Drug Dosing mL/min Estimated GFR (MDRD) BUN/Creatinine Ratio (No establ ref range) Glucose (74-99) mg/dL POC Glucose (70-105) mg/dl Lactic Acid 1.6 (0.4-2.0) mmol/L Calcium (8.5-10.1) mg/dL Total Bilirubin (0.2-1.0) mg/dL AST (15-37) U/L ALT (14-59) U/L Alkaline Phosphatase (46-116) U/L C-Reactive Protein 36.9 H (0.0-0.9) mg/dL Total Protein (6.4-8.2) g/dL Albumin (3.4-5.0) g/dL Globulin Albumin/Globulin Ratio Amylase (25-115) U/L Lipase (73-393) U/L SARS-CoV-2 RNA (JOSE CARLOS) (NEGATIVE) 06/14/20 Range/Units 07:50 WBC (5.0-10.0) 10^3/uL RBC (4.2-5.4) 10^6/uL Hgb (12.0-16.0) g/dL Hct (37.0-47.0) % MCV (80-100) fL MCH (27.0-34.0) pg MCHC (33.0-35.0) g/dL Plt Count (150-450) 10^3/uL Neut % (Auto) (42.2-75.2) % Lymph % (Auto) (20.5-50.1) % [place] % (Auto) (2-8) % Eos % (Auto) (1.0-3.0) % Baso % (Auto) (0.0-1.0) % Add Manual Diff Neutrophils % (Manual) (42-75) % Band Neutrophils % % Lymphocytes % (Manual) (20-50) % Monocytes % (Manual) (2-8) % Platelet Estimate PT (9.0-12.0) SEC INR (0.9-1.2) D-Dimer, Quantitative (0-400) ng/mL Sodium (136-145) mmol/L Potassium (3.5-5.1) mmol/L Chloride (98-107) mmol/L Carbon Dioxide (21-32) mmol/L Anion Gap (7-13) mEq/L BUN (7-18) mg/dL Creatinine (0.55-1.02) mg/dL Est Cr Clr Drug Dosing mL/min Estimated GFR (MDRD) BUN/Creatinine Ratio (No establ ref range) Glucose (74-99) mg/dL POC Glucose 175 H (70-105) mg/dl Lactic Acid (0.4-2.0) mmol/L Calcium (8.5-10.1) mg/dL Total Bilirubin (0.2-1.0) mg/dL AST (15-37) U/L ALT (14-59) U/L Alkaline Phosphatase (46-116) U/L C-Reactive Protein (0.0-0.9) mg/dL Total Protein (6.4-8.2) g/dL Albumin (3.4-5.0) g/dL Globulin Albumin/Globulin Ratio Amylase (25-115) U/L Lipase (73-393) U/L SARS-CoV-2 RNA (JOSE CARLOS) (NEGATIVE) Result Diagrams: 06/14/20 04:06 06/14/20 04:06 [place] Results Last 24 hrs: Microbiology 06/14/20 03:50 Influenza Type A Antigen Screen - Final Nasal, Unspecified NEGATIVE INFLUENZA A VIRUS AG REFERENCE RANGE: NEGATIVE Influenza Type B Antigen Screen - Final NEGATIVE INFLUENZA B VIRUS AG REFERENCE RANGE: NEGATIVE - Problem List (1) Sepsis due to cellulitis SNOMED Code(s): 15337376 ICD Code: L03.90 - CELLULITIS, UNSPECIFIED; A41.9 - SEPSIS, UNSPECIFIED ORGANISM Status: Acute Current Visit: Yes (2) COVID-19 virus infection SNOMED Code(s): 694689353 ICD Code: U07.1 - COVID-19 Status: Acute Current Visit: Yes (3) Elevated d-dimer SNOMED Code(s): 779814261 ICD Code: R79.89 - OTHER SPECIFIED ABNORMAL FINDINGS OF BLOOD CHEMISTRY Status: Acute Current Visit: Yes (4) Cellulitis SNOMED Code(s): 168481813 ICD Code: L03.90 - CELLULITIS, UNSPECIFIED Status: Acute Current Visit: Yes Qualifiers: Site of cellulitis: extremity Site of cellulitis of extremity: lower extremity Laterality: left Qualified Code(s): L03.116 - Cellulitis of left l ower limb (5) Diabetes SNOMED Code(s): 32067956 ICD Code: E11.9 - TYPE 2 DIABETES MELLITUS WITHOUT COMPLICATIONS Status: Acute Current Visit: Yes Qualifiers: Diabetes mellitus type: type 2 Diabetes mellitus correction insulin use: without correction use Diabetes mellitus complication status: with kidney complications Diabetes mellitus complication detail: with chronic kidney disease Chronic kidney disease stage: unspecified stage Qualified Code(s): E11.22 - Type 2 diabetes mellitus with diabetic chronic kidney disease (6) History of COPD SNOMED Code(s): 192910233 ICD Code: Z87.09 - PERSONAL HISTORY OF OTHER DISEASES OF THE RESPIRATORY SYSTEM Status: Acute Current Visit: Yes (7) Morbid obesity SNOMED Code(s): 226892350 ICD Code: E66.01 - MORBID (SEVERE) OBESITY DUE TO EXCESS CALORIES Status: Acute Current Visit: No Problem List Initiated/Reviewed/Updated: Yes Orders Last 24hrs: Active Orders 24 hr Category Date Time Status Admission Diagnosis [ADT] Stat ADT 06/14/20 06:32 Ordered Admission Status [Patient Status] [ADT] Routine ADT 06/14/20 06:32 Active Blood Glucose Check, Bedside [RC] WITHMEALSANDBED Care 06/14/20 08:13 Active Diabetes Education [RC] Click to Edit Care 06/14/20 09:12 Active Notify Provider [RC] PRN Care 06/14/20 09:12 Active Oxygen Therapy [RC] PRN Care 06/14/20 08:16 Active VTE/DVT Education [RC] PER UNIT ROUTINE Care 06/14/20 08:16 Active Vital Signs [RC] Q4H Care 06/14/20 08:16 Active Consistent Carbohydrate Diet [DIET] Diet 06/14/20 Lunch Active CULTURE BLOOD [BC] Stat Lab 06/14/20 04:06 Received VANCOMYCIN TROUGH [CHEM] Timed Lab 06/17/20 04:00 Ordered Acetaminophen [TylenoL] Med 06/14/20 08:13 Active 650 mg PO Q4H PRN Aspirin [Halfprin] Med 06/15/20 09:30 Active 81 mg PO DAILY Dextrose 50% in Water Med 06/14/20 09:12 Active 25 ml IVPUSH ASDIRECTED PRN Dextrose 50% in Water Med 06/14/20 09:12 Active 50 ml IV ASDIRECTED PRN Docusate Sodium/Sennosides [Senna Plus] Med 06/14/20 08:13 Active 1 tab PO BEDTIME PRN Enoxaparin [Lovenox] Med 06/14/20 09:00 Active 40 mg SUBCUT BID Glucagon,Human Recombinant [GlucaGen] Med 06/14/20 09:12 Active 1 mg IM ASDIRECTED PRN Glucagon,Human Recombinant [GlucaGen] Med 06/14/20 09:12 Active 1 mg IM ONETIME PRN Insulin Lispro [HumaLOG] Med 06/14/20 12:00 Active See Protocol SUBCUT WITHMEALSANDBED Metoprolol Succinate [Toprol XL] Med 06/15/20 09:30 Active 25 mg PO DAILY Ondansetron [Zofran ODT] Med 06/14/20 08:13 Active 4 mg PO Q6H PRN Ondansetron [Zofran] Med 06/14/20 08:13 Active 4 mg IVPUSH Q6H PRN Pharmacy to Dose - Vancomycin Med 06/14/20 08:13 Pending 0 dose .XX ASDIRECTED Piperacillin/Tazobactam [Zosyn] 3.375 gm Med 06/14/20 09:00 Active Sodium Chloride 0.9% [Normal Saline] 100 ml IV Q6HR Sodium Chloride 0.9% [Normal Saline] 1,000 ml Med 06/14/20 05:00 Active IV ASDIRECTED Sodium Chloride 0.9% [Normal Saline] 1,000 ml Med 06/14/20 08:15 Active IV ASDIRECTED VANCOmycin/Water for INJ (PEG) [VANCOmycin 1.5 GM/300 Med 06/15/20 04:30 Active ML Premix] 1.5 gm Premix Bag 1 bag IV Q24H Blood Culture x2 Reflex Set [OM.PC] Stat Oth 06/14/20 03:38 Ordered Isolation [COMM] Routine Oth 06/14/20 03:40 Active Resuscitation Status Routine Resus Stat 06/14/20 08:13 Ordered Medication Orders Acetaminophen (Tylenol) 650 mg PO Q4H PRN PRN Reason: Pain Aspirin (Halfprin) 81 mg PO DAILY [facility] Dextrose/Water (Dextrose 50% In Water) 25 ml IVPUSH ASDIRECTED PRN PRN Reason: Hypoglycemia Dextrose/Water (Dextrose 50% In Water) 50 ml IV ASDIRECTED PRN PRN Reason: Hypoglycemia Enoxaparin Sodium (Lovenox) 40 mg SUBCUT BID [facility] Last Admin: 06/14/20 09:48 Dose: 40 mg Documented by: DEBRA Glucagon (Glucagen) 1 mg IM ONETIME PRN PRN Reason: Hypoglycemia Glucagon (Glucagen) 1 mg IM ASDIRECTED PRN PRN Reason: Hypoglycemia Sodium Chloride (Normal Saline) 1,000 mls @ 100 mls/hr IV ASDIRECTED [facility] Last Admin: 06/14/20 04:56 Dose: 100 mls/hr Documented by: PARISAW Sodium Chloride (Normal Saline) 1,000 mls @ 100 mls/hr IV ASDIRECTED [facility] Piperacillin Sod/Tazobactam (Sod 3.375 gm/ Sodium Chloride) 100 mls @ 200 mls/hr IV Q6HR [facility] Last Admin: 06/14/20 09:48 Dose: 200 mls/hr Documented by: DEBRA Vancomycin HCl 1.5 gm/ Premix 300 mls @ 200 mls/hr IV Q24H [facility] Insulin Human Lispro (Humalog) 0 unit SUBCUT WITHMEALSANDBED [facility]; Protocol Metoprolol Succinate (Toprol Xl) 25 mg PO DAILY [facility] Ondansetron HCl (Zofran Odt) 4 mg PO Q6H PRN PRN Reason: nausea, able to take PO Ondansetron HCl (Zofran) 4 mg IVPUSH Q6H PRN PRN Reason: Nausea/Vomiting Senna/Docusate Sodium (Senna Plus) 1 tab PO BEDTIME PRN PRN Reason: Constipation Vancomycin HCl (Pharmacy To Dose - Vancomycin) 0 dose .XX ASDIRECTED [facility] Assessment/Plan Comment:: #Sepsis due to cellulitis of bilateral lower extremities: Patient with fever, tachycardia, and WBC count of 12.7. With left lower extremity cellulitis Received vancomycin in the ED We will continue vancomycin and add Zosyn Follow-up on cultures #COVID-19 virus infection #Elevated D-dimer in the context of COVID-19 virus infection Anticoagulation with Lovenox 40 mg twice daily Daily COVID-19 labs #Hypokalemia: One-time dose of LR #NITHYA: Likely due to sepsis Received IV fluids in the ED Gentle fluid resuscitation Monitor renal function Avoid nephrotoxins Renal dosing of medications #Morbid obesity: BMI of 64 Weight loss counseling #History of type 2 diabetes: Hold oral diabetes medications Sliding scale insulin and hypoglycemia protocol #History of bronchial asthma versus COPD As needed breathing treatments #Hypertension: Hold losartan due to NITHYA DVT prophylaxis: Lovenox GI prophylaxis: Consistent carb diet CODE STATUS: Full code per patient preference
[2020-06-14] MEDS ORDERED: Sodium Chloride 0.9% 10 ML Syringe FLUSH PRN (11:38)
[2020-06-14] MEDS: Insulin Lispro 100 Units/ML 3 ML Vial SUBCUT SCH ×3 (12:18→20:47)
[2020-06-14] MEDS: Sodium Chloride 0.9% 1,000 ML IV SCH (16:17)
[2020-06-15] MEDS: Sodium Chloride 0.9% 1,000 ML IV SCH ×2 (02:51→15:28)
[2020-06-15] MEDS: Piperacillin/Tazobactam 3.375 GM in Sodium Chloride 0.9% 100 ML IV SCH ×3 (05:53→17:19)
[2020-06-15] MEDS: Insulin Lispro 100 Units/ML 3 ML Vial SUBCUT SCH ×4 (08:22→21:20)
[2020-06-15] MEDS: Enoxaparin 40 MG/0.4 ML Syringe SUBCUT SCH ×2 (08:22→21:11)
[2020-06-15] MEDS: Metoprolol Succinate 25 MG Tab.ER PO SCH (08:22)
[2020-06-15] MEDS: Aspirin 81 MG Tab.EC PO SCH (08:31)
--- NOTE | 2020-06-15 10:57 | PCM.PN ---
- General Info Date of Service: 06/15/20 Admission Dx/Problem (Free Text): Admission Diagnosis/Problem Admission Diagnosis/Problem Cellulitis Subjective Update: No acute events overnight. Reports she is feeling less discomfort in left lower leg but it is still red. Denies chest pain, shortness of breath, fevers, chills, nausea, vomiting, diarrhea, constipation, dysuria, hematuria, chest pain, or any other new symptoms. - Patient Data Vitals - Most Recent: Last Vital Signs Temp 98 F 06/15/20 08:15 Pulse 78 06/15/20 08:15 Resp 18 06/15/20 08:15 BP 93/60 06/15/20 08:15 Pulse Ox 95 06/15/20 08:15 Weight - Most Recent: 366 lb 3.2 oz I&O - Last 24 Hours: Intake & Output 06/14/20 06/15/20 06/15/20 22:59 06:59 14:59 Intake Total 3325 1071 120 Output Total 200 200 Balance 3125 871 120 Lab Results Last 24 Hours: Laboratory Results - last 24 hr 06/14/20 06/14/20 06/14/20 Range/Units 11:30 16:28 20:35 POC Glucose 240 H 281 H 231 H (70-105) mg/dl 06/15/20 Range/Units 07:50 POC Glucose 206 H (70-105) mg/dl [place] Results Last 24 Hours: Microbiology 06/14/20 04:06 Aerobic Blood Culture - Preliminary Blood - Venous - Iv Start NO GROWTH AFTER 1 DAY Anaerobic Blood Culture - Preliminary NO GROWTH AFTER 1 DAY Med Orders - Current: Current Medications Acetaminophen (Tylenol) 650 mg PO Q4H PRN PRN Reason: Pain Last Admin: 06/14/20 18:09 Dose: 650 mg Documented by: Aspirin (Halfprin) 81 mg PO DAILY [facility] Last Admin: 06/15/20 08:31 Dose: 81 mg Documented by: Dextrose/Water (Dextrose 50% In Water) 25 ml IVPUSH ASDIRECTED PRN PRN Reason: Hypoglycemia Dextrose/Water (Dextrose 50% In Water) 50 ml IV ASDIRECTED PRN PRN Reason: Hypoglycemia Enoxaparin Sodium (Lovenox) 40 mg SUBCUT BID [facility] Last Admin: 06/15/20 08:22 Dose: 40 mg Documented by: Glucagon (Glucagen) 1 mg IM ONETIME PRN PRN Reason: Hypoglycemia Glucagon (Glucagen) 1 mg IM ASDIRECTED PRN PRN Reason: Hypoglycemia Sodium Chloride (Normal Saline) 1,000 mls @ 100 mls/hr IV ASDIRECTED [facility] Last Admin: 06/15/20 02:51 Dose: 100 mls/hr Documented by: Piperacillin Sod/Tazobactam (Sod 3.375 gm/ Sodium Chloride) 100 mls @ 200 mls/hr IV Q6HR [facility] Last Admin: 06/15/20 05:53 Dose: 200 mls/hr Documented by: Vancomycin HCl 1.5 gm/ Premix 300 mls @ 200 mls/hr IV Q24H [facility] Last Infusion: 06/15/20 05:47 Dose: Infused Documented by: Insulin Human Lispro (Humalog) 0 unit SUBCUT WITHMEALSANDBED [facility]; Protocol Last Admin: 06/15/20 08:22 Dose: 4 units Documented by: Metoprolol Succinate (Toprol Xl) 25 mg PO DAILY [facility] Last Admin: 06/15/20 08:22 Dose: Not Given Documented by: Ondansetron HCl (Zofran Odt) 4 mg PO Q6H PRN PRN Reason: nausea, able to take PO Ondansetron HCl (Zofran) 4 mg IVPUSH Q6H PRN PRN Reason: Nausea/Vomiting Senna/Docusate Sodium (Senna Plus) 1 tab PO BEDTIME PRN PRN Reason: Constipation Sodium Chloride (Saline Flush) 10 ml FLUSH ASDIRECTED PRN PRN Reason: Keep Vein Open Vancomycin HCl (Pharmacy To Dose - Vancomycin) 0 dose .XX ASDIRECTED [facility] Discontinued Medications Acetaminophen (Tylenol) 650 mg PO NOW ONE Stop: 06/14/20 03:47 Last Admin: 06/14/20 03:55 Dose: 650 mg Documented by: Dexamethasone (Decadron) 6 mg IVPUSH ONETIME ONE Stop: 06/14/20 05:34 Last Admin: 06/14/20 05:39 Dose: 6 mg Documented by: Diphenhydramine HCl (Benadryl) 50 mg IVPUSH ONETIME ONE Stop: 06/14/20 04:08 Last Admin: 06/14/20 04:15 Dose: 50 mg Documented by: Vancomycin HCl 2,000 mg/ (Sodium Chloride) 500 mls @ 333.333 mls/hr IV ONETIME ONE Stop: 06/14/20 05:36 Last Admin: 06/14/20 06:31 Dose: Not Given Documented by: Vancomycin HCl 1 gm/ Sodium (Chloride) 250 mls @ 167 mls/hr IV ONETIME ONE Stop: 06/14/20 05:48 Last Admin: 06/14/20 04:26 Dose: 167 mls/hr Documented by: Vancomycin HCl 1 gm/ Sodium (Chloride) 250 mls @ 167 mls/hr IV ONETIME ONE Stop: 06/14/20 05:50 Last Admin: 06/14/20 06:31 Dose: 167 mls/hr Documented by: Sodium Chloride (Normal Saline) 1,000 mls @ 100 mls/hr IV ASDIRECTED [facility] Last Infusion: 06/14/20 16:15 Dose: Infused Documented by: Ondansetron HCl (Zofran Odt) 4 mg PO ONETIME ONE Stop: 06/14/20 03:47 Last Admin: 06/14/20 03:56 Dose: 4 mg Documented by: - Exam General: Alert, Oriented, Cooperative, No Acute Distress HEENT: Pupils Equal, Pupils Reactive, Mucous Membr. Moist/[place] Neck: Supple Lungs: Normal Respiratory Effort, Crackles Cardiovascular: Regular Rate, Regular Rhythm, No Murmurs GI/Abdominal Exam: Normal Bowel Sounds, Soft, Non-Tender, No Distention Extremities: Pedal Edema Peripheral Pulses: 2+: Radial (R), Dorsalis Pedis (L), Dorsalis Pedis (R) Skin: Warm, Dry, Intact Neurological: No New Focal Deficit Psy/Mental Status: Alert, Normal Affect, Normal Mood Sepsis Event Note - Evaluation Sepsis Screening Result: Sepsis Risk - Focused Exam Vital Signs: Vital Signs Temp Pulse Resp BP BP Pulse Ox 06/15/20 08:15 98 F 78 18 93/60 95 06/15/20 03:30 97.5 F 87 20 97/59 L 96 06/15/20 00:00 97.5 F 86 20 114/69 96 - Problem List & Annotations (1) Sepsis due to cellulitis SNOMED Code(s): 77662547 Code(s): L03.90 - CELLULITIS, UNSPECIFIED; A41.9 - SEPSIS, UNSPECIFIED ORGANISM Status: Acute Current Visit: Yes (2) COVID-19 virus infection SNOMED Code(s): 431099713 Code(s): U07.1 - COVID-19 Status: Acute Current Visit: Yes (3) Elevated d-dimer SNOMED Code(s): 891477765 Code(s): R79.89 - OTHER SPECIFIED ABNORMAL FINDINGS OF BLOOD CHEMISTRY Status: Acute Current Visit: Yes (4) Cellulitis SNOMED Code(s): 084229034 Code(s): L03.90 - CELLULITIS, UNSPECIFIED Status: Acute Current Visit: Yes Qualifiers: Site of cellulitis: extremity Site of cellulitis of extremity: lower extremity Laterality: left Qualified Code(s): L03.116 - Cellulitis of left lower limb (5) Diabetes SNOMED Code(s): 79056325 Code(s): E11.9 - TYPE 2 DIABETES MELLITUS WITHOUT COMPLICATIONS Status: Acute Current Visit: Yes Qualifiers: Diabetes mellitus type: type 2 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 Diabetes mellitus complication status: with kidney complications Diabetes mellitus complication detail: with chronic kidney disease Chronic kidney disease stage: unspecified stage Qualified Code(s): E11.22 - Type 2 diabetes mellitus with diabetic chronic kidney disease (6) History of COPD SNOMED Code(s): 213028061 Code(s): Z87.09 - PERSONAL HISTORY OF OTHER DISEASES OF THE RESPIRATORY SYSTEM Status: Acute Current Visit: Yes (7) Morbid obesity SNOMED Code(s): 435453627 Code(s): E66.01 - MORBID (SEVERE) OBESITY DUE TO EXCESS CALORIES Status: Acute Current Visit: No - Problem List Review Problem List Initiated/Reviewed/Updated: Yes - My Orders Last 24 Hours: My Active Orders 06/14/20 10:47 Up With Assistance [RC] ASDIRECTED 06/14/20 11:38 Peripheral IV Care [RC] 09,21 Sodium Chloride 0.9% [Saline Flush] 10 ml FLUSH ASDIRECTED PRN Peripheral IV Insertion Adult [OM.PC] Routine 06/14/20 Lunch Consistent Carbohydrate Diet [DIET] Insulin Lispro [HumaLOG] See Protocol SUBCUT WITHMEALSANDBED 06/15/20 04:30 VANCOmycin/Water for INJ (PEG) [VANCOmycin 1.5 GM/300 ML Premix] 1.5 gm Premix Bag 1 bag IV Q24H 06/15/20 09:30 Aspirin [Halfprin] 81 mg PO DAILY Metoprolol Succinate [Toprol XL] 25 mg PO DAILY 06/15/20 10:51 CBC W/O DIFF,HEMOGRAM [HEME] Routine 06/15/20 10:52 BASIC METABOLIC PANEL,BMP [CHEM] Routine MAGNESIUM [CHEM] Routine PHOSPHORUS [CHEM] Routine 06/17/20 04:00 VANCOMYCIN TROUGH [CHEM] Timed - Plan Plan:: #Sepsis due to cellulitis of bilateral lower extremities: Patient with fever, tachycardia, and WBC count of 12.7. With left lower extremity cellulitis Received vancomycin in the ED We will continue vancomycin and add Zosyn Follow-up on cultures #Lower extremity edema: Give one time dose of lasix Elevate legs when in bed or when seated. #COVID-19 virus infection #Elevated D-dimer in the context of COVID-19 virus infection Anticoagulation with Lovenox 40 mg twice daily Daily COVID-19 labs #Hypokalemia: One-time dose of LR #NITHYA: Likely due to sepsis Received IV fluids in the ED Gentle fluid resuscitation Monitor renal function Avoid nephrotoxins Renal dosing of medications #Morbid obesity: BMI of 64 Weight loss counseling #History of type 2 diabetes: Hold oral diabetes medications Sliding scale insulin and hypoglycemia protocol #History of bronchial asthma versus COPD As needed breathing treatments #Hypertension: Hold losartan due to NITHYA DVT prophylaxis: Lovenox GI prophylaxis: Consistent carb diet CODE STATUS: Full code per patient preference
[2020-06-15 11:50] LABS: ANION GAP 12.9 mEq/L (7-13)
[2020-06-15] MEDS ORDERED: Melatonin 3 MG Tab PO PRN (20:49)
[2020-06-16] MEDS: Piperacillin/Tazobactam 3.375 GM in Sodium Chloride 0.9% 100 ML IV SCH ×4 (00:37→17:24)
[2020-06-16] MEDS: Sodium Chloride 0.9% 1,000 ML IV SCH ×2 (01:17→14:32)
[2020-06-16] MEDS: Insulin Lispro 100 Units/ML 3 ML Vial SUBCUT SCH ×4 (08:51→21:10)
[2020-06-16] MEDS: Aspirin 81 MG Tab.EC PO SCH (08:51)
[2020-06-16] MEDS: Metoprolol Succinate 25 MG Tab.ER PO SCH (08:51)
[2020-06-16] MEDS: Enoxaparin 40 MG/0.4 ML Syringe SUBCUT SCH ×2 (08:52→21:07)
[2020-06-16 11:21] LABS: ANION GAP 11.7 mEq/L (7-13)
--- NOTE | 2020-06-16 12:19 | PCM.PN ---
- General Info Date of Service: 06/16/20 Admission Dx/Problem (Free Text): Admission Diagnosis/Problem Admission Diagnosis/Problem Cellulitis Subjective Update: No acute events overnight. Having non-productive cough; Left lower leg is still red. Denies chest pain, shortness of breath, fevers, chills, nausea, vomiting, diarrhea, constipation, dysuria, hematuria, chest pain, or any other new symptoms. - Patient Data Vitals - Most Recent: Last Vital Signs Temp 98 F 06/16/20 04:53 Pulse 104 H 06/16/20 08:51 Resp 18 06/16/20 04:53 BP 159/103 H 06/16/20 08:51 Pulse Ox 97 06/16/20 06:15 Weight - Most Recent: 366 lb 3.2 oz I&O - Last 24 Hours: Intake & Output 06/15/20 06/16/20 06/16/20 22:59 06:59 14:59 Intake Total 2025 1750 240 Output Total 700 300 Balance 1325 1450 240 Lab Results Last 24 Hours: Laboratory Results - last 24 hr 06/15/20 06/15/20 06/16/20 Range/Units 17:14 21:17 08:50 WBC (5.0-10.0) 10^3/uL RBC (4.2-5.4) 10^6/uL Hgb (12.0-16.0) g/dL Hct (37.0-47.0) % MCV (80-100) fL MCH (27.0-34.0) pg MCHC (33.0-35.0) g/dL Plt Count (150-450) 10^3/uL Sodium (136-145) mmol/L Potassium (3.5-5.1) mmol/L Chloride (98-107) mmol/L Carbon Dioxide (21-32) mmol/L Anion Gap (7-13) mEq/L BUN (7-18) mg/dL Creatinine (0.55-1.02) mg/dL Est Cr Clr Drug Dosing mL/min Estimated GFR (MDRD) Glucose (74-99) mg/dL POC Glucose 146 H 150 H 118 H (70-105) mg/dl Calcium (8.5-10.1) mg/dL Phosphorus (2.6-4.7) mg/dL Magnesium (1.8-2.4) mg/dL 06/16/20 06/16/20 06/16/20 Range/Units 10:45 10:45 10:45 WBC 10.8 H (5.0-10.0) 10^3/uL RBC 4.47 (4.2-5.4) 10^6/uL Hgb 10.8 L (12.0-16.0) g/dL Hct 35.6 L (37.0-47.0) % MCV 79.6 L (80-100) fL MCH 24.2 L (27.0-34.0) pg MCHC 30.3 L (33.0-35.0) g/dL Plt Count 141 L (150-450) 10^3/uL Sodium 139 (136-145) mmol/L Potassium 3.7 (3.5-5.1) mmol/L Chloride 106 (98-107) mmol/L Carbon Dioxide 25 (21-32) mmol/L Anion Gap 11.7 (7-13) mEq/L BUN 20 H (7-18) mg/dL Creatinine 1.03 H (0.55-1.02) mg/dL Est Cr Clr Drug Dosing 56.46 mL/min Estimated GFR (MDRD) 58 Glucose 169 H (74-99) mg/dL POC Glucose (70-105) mg/dl Calcium 7.9 L (8.5-10.1) mg/dL Phosphorus 2.7 (2.6-4.7) mg/dL Magnesium 1.8 (1.8-2.4) mg/dL [place] Results Last 24 Hours: Microbiology 06/14/20 04:06 Aerobic Blood Culture - Preliminary Blood - Venous - Iv Start NO GROWTH AFTER 2 DAYS Anaerobic Blood Culture - Preliminary NO GROWTH AFTER 2 DAYS Med Orders - Current: Current Medications Acetaminophen (Tylenol) 650 mg PO Q4H PRN PRN Reason: Pain Last Admin: 06/14/20 18:09 Dose: 650 mg Documented by: Aspirin (Halfprin) 81 mg PO DAILY [facility] Last Admin: 06/16/20 08:51 Dose: 81 mg Documented by: Dexamethasone (Decadron) 6 mg IV DAILY [facility] Stop: 06/25/20 10:46 Dextrose/Water (Dextrose 50% In Water) 25 ml IVPUSH ASDIRECTED PRN PRN Reason: Hypoglycemia Dextrose/Water (Dextrose 50% In Water) 50 ml IV ASDIRECTED PRN PRN Reason: Hypoglycemia Enoxaparin Sodium (Lovenox) 40 mg SUBCUT BID [facility] Last Admin: 06/16/20 08:52 Dose: 40 mg Documented by: Glucagon (Glucagen) 1 mg IM ONETIME PRN PRN Reason: Hypoglycemia Glucagon (Glucagen) 1 mg IM ASDIRECTED PRN PRN Reason: Hypoglycemia Guaifenesin (Mucinex) 600 mg PO TID [facility] Sodium Chloride (Normal Saline) 1,000 mls @ 100 mls/hr IV ASDIRECTED [facility] Last Admin: 06/16/20 01:17 Dose: 100 mls/hr Documented by: Piperacillin Sod/Tazobactam (Sod 3.375 gm/ Sodium Chloride) 100 mls @ 200 mls/hr IV Q6HR [facility] Last Admin: 06/16/20 06:22 Dose: 200 mls/hr Documented by: Vancomycin HCl 1.5 gm/ Premix 300 mls @ 200 mls/hr IV Q24H [facility] Last Admin: 06/16/20 04:46 Dose: 200 mls/hr Documented by: Insulin Human Lispro (Humalog) 0 unit SUBCUT WITHMEALSANDBED [facility]; Protocol Last Admin: 06/16/20 08:51 Dose: Not Given Documented by: Melatonin (Melatonin) 6 mg PO BEDTIME PRN PRN Reason: Sleep Metoprolol Succinate (Toprol Xl) 25 mg PO DAILY [facility] Last Admin: 06/16/20 08:51 Dose: 25 mg Documented by: Ondansetron HCl (Zofran Odt) 4 mg PO Q6H PRN PRN Reason: nausea, able to take PO Ondansetron HCl (Zofran) 4 mg IVPUSH Q6H PRN PRN Reason: Nausea/Vomiting Senna/Docusate Sodium (Senna Plus) 1 tab PO BEDTIME PRN PRN Reason: Constipation Sodium Chloride (Saline Flush) 10 ml FLUSH ASDIRECTED PRN PRN Reason: Keep Vein Open Vancomycin HCl (Pharmacy To Dose - Vancomycin) 0 dose .XX ASDIRECTED [facility] Discontinued Medications Acetaminophen (Tylenol) 650 mg PO NOW ONE Stop: 06/14/20 03:47 Last Admin: 06/14/20 03:55 Dose: 650 mg Documented by: Dexamethasone (Decadron) 6 mg IVPUSH ONETIME ONE Stop: 06/14/20 05:34 Last Admin: 06/14/20 05:39 Dose: 6 mg Documented by: Diphenhydramine HCl (Benadryl) 50 mg IVPUSH ONETIME ONE Stop: 06/14/20 04:08 Last Admin: 06/14/20 04:15 Dose: 50 mg Documented by: Vancomycin HCl 2,000 mg/ (Sodium Chloride) 500 mls @ 333.333 mls/hr IV ONETIME ONE Stop: 06/14/20 05:36 Last Admin: 06/14/20 06:31 Dose: Not Given Documented by: Vancomycin HCl 1 gm/ Sodium (Chloride) 250 mls @ 167 mls/hr IV ONETIME ONE Stop: 06/14/20 05:48 Last Admin: 06/14/20 04:26 Dose: 167 mls/hr Documented by: Vancomycin HCl 1 gm/ Sodium (Chloride) 250 mls @ 167 mls/hr IV ONETIME ONE Stop: 06/14/20 05:50 Last Admin: 06/14/20 06:31 Dose: 167 mls/hr Documented by: Sodium Chloride (Normal Saline) 1,000 mls @ 100 mls/hr IV ASDIRECTED [facility] Last Infusion: 06/14/20 16:15 Dose: Infused Documented by: Ondansetron HCl (Zofran Odt) 4 mg PO ONETIME ONE Stop: 06/14/20 03:47 Last Admin: 06/14/20 03:56 Dose: 4 mg Documented by: - Exam Quality Assessment: Supplemental Oxygen (2 L via [place]) General: Alert, Oriented, Cooperative, No Acute Distress HEENT: Pupils Equal, Pupils Reactive, Mucous Membr. Moist/[place] Neck: Supple Lungs: Clear to Auscultation, Normal Respiratory Effort Cardiovascular: Regular Rate, Regular Rhythm, No Murmurs (Heart sounds distant due to body habitus) GI/Abdominal Exam: Normal Bowel Sounds, Soft, Non-Tender, No Distention Extremities: Redness (Bilateral lower extremities; worse on left with mild improvement. ) Sepsis Event Note - Evaluation Sepsis Screening Result: Sepsis Risk - Focused Exam Vital Signs: Vital Signs Temp Pulse Pulse Pulse Resp BP BP 06/16/20 08:51 104 H 159/103 H 06/16/20 06:15 06/16/20 04:53 98 F 88 18 115/80 06/16/20 00:34 98 F 82 18 104/90 Pulse Ox Pulse Ox 06/16/20 08:51 06/16/20 06:15 97 06/16/20 04:53 92 L 06/16/20 00:34 94 L - Problem List & Annotations (1) Sepsis due to cellulitis SNOMED Code(s): 15742932 Code(s): L03.90 - CELLULITIS, UNSPECIFIED; A41.9 - SEPSIS, UNSPECIFIED ORGANISM Status: Acute Current Visit: Yes (2) COVID-19 virus infection SNOMED Code(s): 488077657 Code(s): U07.1 - COVID-19 Status: Acute Current Visit: Yes (3) Elevated d-dimer SNOMED Code(s): 618052650 Code(s): R79.89 - OTHER SPECIFIED ABNORMAL FINDINGS OF BLOOD CHEMISTRY Status: Acute Current Visit: Yes (4) Cellulitis SNOMED Code(s): 970533126 Code(s): L03.90 - CELLULITIS, UNSPECIFIED Status: Acute Current Visit: Yes Qualifiers: Site of cellulitis: extremity Site of cellulitis of extremity: lower extremity Laterality: left Qualified Code(s): L03.116 - Cellulitis of left lower limb (5) Diabetes SNOMED Code(s): 23993518 Code(s): E11.9 - TYPE 2 DIABETES MELLITUS WITHOUT COMPLICATIONS Status: Acute Current Visit: Yes Qualifiers: Diabetes mellitus type: type 2 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 care social worker use Diabetes mellitus complication status: with kidney complications Diabetes mellitus complication detail: with chronic kidney disease Chronic kidney disease stage: unspecified stage Qualified Code(s): E11.22 - Type 2 diabetes mellitus with diabetic chronic kidney disease (6) History of COPD SNOMED Code(s): 480651473 Code(s): Z87.09 - PERSONAL HISTORY OF OTHER DISEASES OF THE RESPIRATORY SYSTEM Status: Acute Current Visit: Yes (7) Morbid obesity SNOMED Code(s): 346038891 Code(s): E66.01 - MORBID (SEVERE) OBESITY DUE TO EXCESS CALORIES Status: Acute Current Visit: No - Problem List Review Problem List Initiated/Reviewed/Updated: Yes - My Orders Last 24 Hours: My Active Orders 06/15/20 20:49 Melatonin 6 mg PO BEDTIME PRN 06/16/20 10:45 dexAMETHasone [Decadron] 6 mg IV DAILY 06/16/20 11:00 guaiFENesin [Mucinex] 600 mg PO TID 06/17/20 04:00 VANCOMYCIN TROUGH [CHEM] Timed - Plan Plan:: #Sepsis due to cellulitis of bilateral lower extremities: Patient with fever, tachycardia, and WBC count of 12.7. With left lower extremity cellulitis Received vancomycin in the ED Continue vancomycin and Zosyn Follow-up on cultures #Lower extremity edema: Give one time dose of lasix Elevate legs when in bed or when seated. #COVID-19 virus infection #Elevated D-dimer in the context of COVID-19 virus infection Anticoagulation with Lovenox 40 mg twice daily Daily COVID-19 labs #Hypokalemia: Resolved. Monitor and replace. #NITHYA: Resolved. Likely due to sepsis Received IV fluids in the ED D/c IVF Monitor renal function Avoid nephrotoxins Renal dosing of medications #Morbid obesity: BMI of 64 Weight loss counseling #History of type 2 diabetes: Hold oral diabetes medications Sliding scale insulin and hypoglycemia protocol #History of bronchial asthma versus COPD As needed breathing treatments #Hypertension: Resume losartan, hold for SBP <110 or DBP <60 DVT prophylaxis: Lovenox GI prophylaxis: Consistent carb diet CODE STATUS: Full code per patient preference
[2020-06-16] MEDS: guaiFENesin 600 MG Tab.ER PO SCH ×3 (12:40→21:06)
[2020-06-16] MEDS: Dexamethasone 4 MG/ML SDV IV SCH (12:40)
[2020-06-16] MEDS: Losartan 50 MG Tab PO SCH (13:30)
[2020-06-16] MEDS: traZODone 50 MG Tab PO SCH (21:06)
[2020-06-16] MEDS: atorvaSTATin 10 MG Tab PO SCH (21:06)
[2020-06-17] MEDS: Piperacillin/Tazobactam 3.375 GM in Sodium Chloride 0.9% 100 ML IV SCH ×4 (00:11→19:33)
[2020-06-17] MEDS: Sodium Chloride 0.9% 1,000 ML IV SCH (02:33)
[2020-06-17] MEDS: Dexamethasone 4 MG/ML SDV IV SCH (08:39)
[2020-06-17] MEDS: Aspirin 81 MG Tab.EC PO SCH (08:39)
[2020-06-17] MEDS: Metoprolol Succinate 25 MG Tab.ER PO SCH (08:39)
[2020-06-17] MEDS: guaiFENesin 600 MG Tab.ER PO SCH ×3 (08:39→21:26)
[2020-06-17] MEDS: Enoxaparin 40 MG/0.4 ML Syringe SUBCUT SCH ×2 (08:39→21:29)
[2020-06-17] MEDS: Insulin Lispro 100 Units/ML 3 ML Vial SUBCUT SCH ×4 (08:40→21:32)
[2020-06-17] MEDS: Losartan 50 MG Tab PO SCH (08:40)
[2020-06-17] MEDS: Lidocaine 5% 700 MG Patch TOP SCH (10:05)
--- NOTE | 2020-06-17 11:23 | PCM.PN ---
- General Info Date of Service: 06/17/20 Admission Dx/Problem (Free Text): Admission Diagnosis/Problem Admission Diagnosis/Problem Cellulitis Subjective Update: No acute events overnight. Reports that cough is now productive; Left lower leg is still red, but improved. Also not tender anymore. Denies chest pain, shortness of breath, fevers, chills, nausea, vomiting, diarrhea, constipation, dysuria, hematuria, chest pain, or any other new symptoms. - Patient Data Vitals - Most Recent: Last Vital Signs Temp 97.3 F 06/17/20 08:00 Pulse 63 06/17/20 08:39 Resp 20 06/17/20 08:00 BP 126/99 H 06/17/20 08:40 Pulse Ox 95 06/17/20 08:00 Weight - Most Recent: 366 lb 3.2 oz I&O - Last 24 Hours: Intake & Output 06/16/20 06/17/20 06/17/20 22:59 06:59 14:59 Intake Total 520 700 200 Output Total 450 400 Balance 70 300 200 Lab Results Last 24 Hours: Laboratory Results - last 24 hr 06/16/20 06/16/20 06/16/20 Range/Units 10:45 10:45 12:39 Sodium 139 (136-145) mmol/L Potassium 3.7 (3.5-5.1) mmol/L Chloride 106 (98-107) mmol/L Carbon Dioxide 25 (21-32) mmol/L Anion Gap 11.7 (7-13) mEq/L BUN 20 H (7-18) mg/dL Creatinine 1.03 H (0.55-1.02) mg/dL Est Cr Clr Drug Dosing 56.46 mL/min Estimated GFR (MDRD) 58 Glucose 169 H (74-99) mg/dL POC Glucose 135 H (70-105) mg/dl Calcium 7.9 L (8.5-10.1) mg/dL Phosphorus 2.7 (2.6-4.7) mg/dL Magnesium 1.8 (1.8-2.4) mg/dL Vancomycin Trough (10.0-20.0) ug/mL 06/16/20 06/16/20 06/17/20 Range/Units 17:22 21:02 04:20 Sodium (136-145) mmol/L Potassium (3.5-5.1) mmol/L Chloride (98-107) mmol/L Carbon Dioxide (21-32) mmol/L Anion Gap (7-13) mEq/L BUN (7-18) mg/dL Creatinine (0.55-1.02) mg/dL Est Cr Clr Drug Dosing mL/min Estimated GFR (MDRD) Glucose (74-99) mg/dL POC Glucose 203 H 280 H (70-105) mg/dl Calcium (8.5-10.1) mg/dL Phosphorus (2.6-4.7) mg/dL Magnesium (1.8-2.4) mg/dL Vancomycin Trough 4.9 L (10.0-20.0) ug/mL 06/17/20 Range/Units 08:30 Sodium (136-145) mmol/L Potassium (3.5-5.1) mmol/L Chloride (98-107) mmol/L Carbon Dioxide (21-32) mmol/L Anion Gap (7-13) mEq/L BUN (7-18) mg/dL Creatinine (0.55-1.02) mg/dL Est Cr Clr Drug Dosing mL/min Estimated GFR (MDRD) Glucose (74-99) mg/dL POC Glucose 189 H (70-105) mg/dl Calcium (8.5-10.1) mg/dL Phosphorus (2.6-4.7) mg/dL Magnesium (1.8-2.4) mg/dL Vancomycin Trough (10.0-20.0) ug/mL [place] Results Last 24 Hours: Microbiology 06/14/20 04:06 Aerobic Blood Culture - Preliminary Blood - Venous - Iv Start NO GROWTH AFTER 3 DAYS Anaerobic Blood Culture - Preliminary NO GROWTH AFTER 3 DAYS Med Orders - Current: Current Medications Acetaminophen (Tylenol) 650 mg PO Q4H PRN PRN Reason: Pain Last Admin: 06/14/20 18:09 Dose: 650 mg Documented by: Aspirin (Halfprin) 81 mg PO DAILY [facility] Last Admin: 06/17/20 08:39 Dose: 81 mg Documented by: Atorvastatin Calcium (Lipitor) 10 mg PO BEDTIME [facility] Last Admin: 06/16/20 21:06 Dose: 10 mg Documented by: Dexamethasone (Decadron) 6 mg IV DAILY [facility] Stop: 06/25/20 10:46 Last Admin: 06/17/20 08:39 Dose: 6 mg Documented by: Dextrose/Water (Dextrose 50% In Water) 25 ml IVPUSH ASDIRECTED PRN PRN Reason: Hypoglycemia Dextrose/Water (Dextrose 50% In Water) 50 ml IV ASDIRECTED PRN PRN Reason: Hypoglycemia Enoxaparin Sodium (Lovenox) 40 mg SUBCUT BID [facility] Last Admin: 06/17/20 08:39 Dose: 40 mg Documented by: Glucagon (Glucagen) 1 mg IM ONETIME PRN PRN Reason: Hypoglycemia Glucagon (Glucagen) 1 mg IM ASDIRECTED PRN PRN Reason: Hypoglycemia Guaifenesin (Mucinex) 600 mg PO TID [facility] Last Admin: 06/17/20 08:39 Dose: 600 mg Documented by: Sodium Chloride (Normal Saline) 1,000 mls @ 100 mls/hr IV ASDIRECTED [facility] Last Admin: 06/17/20 02:33 Dose: 100 mls/hr Documented by: Piperacillin Sod/Tazobactam (Sod 3.375 gm/ Sodium Chloride) 100 mls @ 200 mls/hr IV Q6HR [facility] Last Admin: 06/17/20 05:31 Dose: 200 mls/hr Documented by: Vancomycin HCl (Vancomycin 1.5 Gm/300 Ml Premix) 300 mls @ 200 mls/hr IV Q12H [facility] Insulin Human Lispro (Humalog) 0 unit SUBCUT WITHMEALSANDBED [facility]; Protocol Last Admin: 06/17/20 08:40 Dose: 2 units Documented by: Lidocaine (Lidoderm 5%) 700 mg TOP DAILY [facility] Last Admin: 06/17/20 10:05 Dose: Not Given Documented by: Losartan Potassium (Cozaar) 100 mg PO DAILY [facility] Last Admin: 06/17/20 08:40 Dose: 100 mg Documented by: Melatonin (Melatonin) 6 mg PO BEDTIME PRN PRN Reason: Sleep Metoprolol Succinate (Toprol Xl) 25 mg PO DAILY [facility] Last Admin: 06/17/20 08:39 Dose: 25 mg Documented by: Miscellaneous Information (Remove Patch) 1 ea TRDERM Q24H [facility] Ondansetron HCl (Zofran Odt) 4 mg PO Q6H PRN PRN Reason: nausea, able to take PO Ondansetron HCl (Zofran) 4 mg IVPUSH Q6H PRN PRN Reason: Nausea/Vomiting Senna/Docusate Sodium (Senna Plus) 1 tab PO BEDTIME PRN PRN Reason: Constipation Sodium Chloride (Saline Flush) 10 ml FLUSH ASDIRECTED PRN PRN Reason: Keep Vein Open Trazodone HCl (Trazodone) 50 mg PO BEDTIME [facility] Last Admin: 06/16/20 21:06 Dose: 50 mg Documented by: Vancomycin HCl (Pharmacy To Dose - Vancomycin) 0 dose .XX ASDIRECTED [facility] Discontinued Medications Acetaminophen (Tylenol) 650 mg PO NOW ONE Stop: 06/14/20 03:47 Last Admin: 06/14/20 03:55 Dose: 650 mg Documented by: Dexamethasone (Decadron) 6 mg IVPUSH ONETIME ONE Stop: 06/14/20 05:34 Last Admin: 06/14/20 05:39 Dose: 6 mg Documented by: Diphenhydramine HCl (Benadryl) 50 mg IVPUSH ONETIME ONE Stop: 06/14/20 04:08 Last Admin: 06/14/20 04:15 Dose: 50 mg Documented by: Vancomycin HCl 2,000 mg/ (Sodium Chloride) 500 mls @ 333.333 mls/hr IV ONETIME ONE Stop: 06/14/20 05:36 Last Admin: 06/14/20 06:31 Dose: Not Given Documented by: Vancomycin HCl 1 gm/ Sodium (Chloride) 250 mls @ 167 mls/hr IV ONETIME ONE Stop: 06/14/20 05:48 Last Admin: 06/14/20 04:26 Dose: 167 mls/hr Documented by: Vancomycin HCl 1 gm/ Sodium (Chloride) 250 mls @ 167 mls/hr IV ONETIME ONE Stop: 06/14/20 05:50 Last Admin: 06/14/20 06:31 Dose: 167 mls/hr Documented by: Sodium Chloride (Normal Saline) 1,000 mls @ 100 mls/hr IV ASDIRECTED [facility] Last Infusion: 06/14/20 16:15 Dose: Infused Documented by: Vancomycin HCl 1.5 gm/ Premix 300 mls @ 200 mls/hr IV Q24H [facility] Stop: 06/17/20 06:30 Last Admin: 06/17/20 06:36 Dose: 200 mls/hr Documented by: Ondansetron HCl (Zofran Odt) 4 mg PO ONETIME ONE Stop: 06/14/20 03:47 Last Admin: 06/14/20 03:56 Dose: 4 mg Documented by: - Exam General: Alert, Oriented, Cooperative, No Acute Distress HEENT: Pupils Equal, Pupils Reactive, Mucous Membr. Moist/[place] Lungs: Clear to Auscultation, Normal Respiratory Effort Cardiovascular: Regular Rate, Regular Rhythm GI/Abdominal Exam: Normal Bowel Sounds, Soft, Non-Tender, No Distention Extremities: Non-Tender, Redness (Some improvement of redness of left lower leg; however, area of redness is unchanged compared to 06/16.) Peripheral Pulses: 2+: Radial (L), Dorsalis Pedis (L), Dorsalis Pedis (R) Skin: Warm, Dry Neurological: No New Focal Deficit Psy/Mental Status: Alert, Normal Affect, Normal Mood Sepsis Event Note - Evaluation Sepsis Screening Result: No Definite Risk - Focused Exam Vital Signs: Vital Signs Temp Pulse Pulse Pulse Resp BP BP 06/17/20 08:40 126/99 H 06/17/20 08:39 63 126/99 H 06/17/20 08:00 97.3 F 63 20 126/99 H 06/17/20 05:00 96.9 F 55 L 16 126/84 06/17/20 00:14 97 F 81 18 150/78 H Pulse Ox 06/17/20 08:40 06/17/20 08:39 06/17/20 08:00 95 06/17/20 05:00 94 L 06/17/20 00:14 93 L - Problem List & Annotations (1) Sepsis due to cellulitis SNOMED Code(s): 50817850 Code(s): L03.90 - CELLULITIS, UNSPECIFIED; A41.9 - SEPSIS, UNSPECIFIED ORGANISM Status: Acute Current Visit: Yes (2) COVID-19 virus infection SNOMED Code(s): 882836530 Code(s): U07.1 - COVID-19 Status: Acute Current Visit: Yes (3) Elevated d-dimer SNOMED Code(s): 925250822 Code(s): R79.89 - OTHER SPECIFIED ABNORMAL FINDINGS OF BLOOD CHEMISTRY Status: Acute Current Visit: Yes (4) Cellulitis SNOMED Code(s): 493897412 Code(s): L03.90 - CELLULITIS, UNSPECIFIED Status: Acute Current Visit: Yes Qualifiers: Site of cellulitis: extremity Site of cellulitis of extremity: lower extremity Laterality: left Qualified Code(s): L03.116 - Cellulitis of left lower limb (5) Diabetes SNOMED Code(s): 03110994 Code(s): E11.9 - TYPE 2 DIABETES MELLITUS WITHOUT COMPLICATIONS Status: Acute Current Visit: Yes Qualifiers: Diabetes mellitus type: type 2 Diabetes mellitus ferry terminal agent insulin use: without halfway use Diabetes mellitus complication status: with kidney complications Diabetes mellitus complication detail: with chronic kidney disease Chronic kidney disease stage: unspecified stage Qualified Code(s): E11.22 - Type 2 diabetes mellitus with diabetic chronic kidney disease (6) History of COPD SNOMED Code(s): 926142965 Code(s): Z87.09 - PERSONAL HISTORY OF OTHER DISEASES OF THE RESPIRATORY SYSTEM Status: Acute Current Visit: Yes (7) Morbid obesity SNOMED Code(s): 820568542 Code(s): E66.01 - MORBID (SEVERE) OBESITY DUE TO EXCESS CALORIES Status: Acute Current Visit: No - Problem List Review Problem List Initiated/Reviewed/Updated: Yes - My Orders Last 24 Hours: My Active Orders 06/16/20 10:45 dexAMETHasone [Decadron] 6 mg IV DAILY 06/16/20 11:00 guaiFENesin [Mucinex] 600 mg PO TID 06/16/20 12:30 Losartan [Cozaar] 100 mg PO DAILY 06/16/20 21:00 atorvaSTATin [Lipitor] 10 mg PO BEDTIME traZODone 50 mg PO BEDTIME 06/17/20 09:00 Lidocaine 5% [Lidoderm 5%] 700 mg TOP DAILY 06/17/20 17:00 VANCOmycin/Water for INJ (PEG) [VANCOmycin 1.5 GM/300 ML Premix] 300 ml IV Q12H 06/17/20 21:00 Remove Patch 1 ea TRDERM Q24H - Plan Plan:: #Sepsis due to cellulitis of bilateral lower extremities: Patient with fever, tachycardia, and WBC count of 12.7. With left lower extremity cellulitis Received vancomycin in the ED Continue vancomycin and Zosyn Follow-up on cultures -If cultures remain negative tomorrow, will keep on zosyn or levaquin for at least 10 based on recent history of pseudomonas. #Lower extremity edema: Elevate legs when in bed or when seated. #COVID-19 virus infection #Elevated D-dimer in the context of COVID-19 virus infection Anticoagulation with Lovenox 40 mg twice daily Daily COVID-19 labs #Hypokalemia: Resolved. Monitor and replace. #NITHYA: Resolved. Likely due to sepsis Received IV fluids in the ED D/c IVF Monitor renal function Avoid nephrotoxins Renal dosing of medications #Morbid obesity: BMI of 64 Weight loss counseling #History of type 2 diabetes: Hold oral diabetes medications Sliding scale insulin and hypoglycemia protocol #History of bronchial asthma versus COPD As needed breathing treatments #Hypertension: Resume losartan, hold for SBP <110 or DBP <60 DVT prophylaxis: Lovenox GI prophylaxis: Consistent carb diet CODE STATUS: Full code per patient preference
[2020-06-17] MEDS ORDERED: Remove Patch*LIDOCAINE TRDERM SCH (21:00)
[2020-06-17] MEDS: atorvaSTATin 10 MG Tab PO SCH (21:26)
[2020-06-17] MEDS: traZODone 50 MG Tab PO SCH (21:26)
[2020-06-18] MEDS: Piperacillin/Tazobactam 3.375 GM in Sodium Chloride 0.9% 100 ML IV SCH ×3 (00:36→12:16)
[2020-06-18] MEDS: Sodium Chloride 0.9% 1,000 ML IV SCH (02:34)
[2020-06-18] MEDS: Insulin Lispro 100 Units/ML 3 ML Vial SUBCUT SCH ×2 (08:58→12:11)
[2020-06-18] MEDS: Dexamethasone 4 MG/ML SDV IV SCH (09:38)
[2020-06-18] MEDS: Aspirin 81 MG Tab.EC PO SCH (09:38)
[2020-06-18] MEDS: Lidocaine 5% 700 MG Patch TOP SCH (09:39)
[2020-06-18] MEDS: guaiFENesin 600 MG Tab.ER PO SCH ×2 (09:39→13:23)
[2020-06-18] MEDS: Enoxaparin 40 MG/0.4 ML Syringe SUBCUT SCH (09:40)
[2020-06-18] MEDS: Metoprolol Succinate 25 MG Tab.ER PO SCH (09:42)
[2020-06-18] MEDS: Losartan 50 MG Tab PO SCH (09:44)
[2020-06-18 09:45] VITALS: BP 133/61
[2020-06-18] MEDS ORDERED: Furosemide 40 MG/4 ML VIAL IVPUSH ONE (11:45)
--- NOTE | 2020-06-18 13:44 | PCM.DCSUM1 ---
Discharge Summary - Hospital Course Free Text/Narrative:: Patient is a 45-year-old female with medical history significant for type 2 diabetes on oral diabetes medication, CKD stage III, bronchial asthma, hypertension, recurrent cellulitis who presented to the ED with complaints of fever, cough, and increased leg pain and was admitted for cellulitis, lymphedema, and COVID-19 infection. She was started on Vancomycin and Zosyn. Received IV lasix. Cultures remained negative. Was treated with decadron for COVID-19. Required O2 for a few hours at time of admission but was weaned off. Patient's cellulitis is mildly improved after several days of antibiotics so is being transferred to [facility] for ID consultation and further management. HPI Initial Comments: Patient is a 45-year-old female with medical history significant for type 2 diabetes on oral diabetes medication, CKD stage III, bronchial asthma, hypertension, recurrent cellulitis who presented to the ED with complaints of fever, cough, and increased leg pain starting yesterday night. Reports that she has not taken any medication for her symptoms. Reports that her daughter and her family tested positive for COVID-19 morning and was supposed to be of quarantine on day seventh of this month. States that they came to visit her 2 days ago. Reports that she started having cough and fever last night with general body aches. States that she noticed that her left lower extremity was red and painful last night. Had been wrapped earlier today and it was not right. Denies shortness of breath, chest pain, nausea, vomiting, diarrhea, constipation, dysuria, hematuria, changes in taste or smell, loss of appetite, or any other symptoms. In the ED, patient was noted to have temperature of 103.5 with heart rate of 117. Systolic blood pressures range from 102-118 and diastolic blood pressures range from 53-100. Respiratory rate ranged from 16-20. White count was elevated at 20.3 with hemoglobin of 13.0. Potassium was low at 3.4 creatinine was 1.28. Patient's D-dimer was elevated at 2250 with COVID-19 screen came back positive. She received a dose of vancomycin. Left Lower Leg Diagnosis: Stroke: No - Discharge Data Discharge Date: 06/18/20 Discharge Disposition: DC/Tfer to Acute Hospital 02 Condition: Poor - Referral to Home Health Primary Care Physician: PCP None - Discharge Diagnosis/Problem(s) (1) Sepsis due to cellulitis SNOMED Code(s): 86160854 ICD Code: L03.90 - CELLULITIS, UNSPECIFIED; A41.9 - SEPSIS, UNSPECIFIED ORGANISM Status: Acute Current Visit: Yes (2) COVID-19 virus infection SNOMED Code(s): 074944478 ICD Code: U07.1 - COVID-19 Status: Acute Current Visit: Yes (3) Elevated d-dimer SNOMED Code(s): 897487094 ICD Code: R79.89 - OTHER SPECIFIED ABNORMAL FINDINGS OF BLOOD CHEMISTRY Status: Acute Current Visit: Yes (4) Cellulitis SNOMED Code(s): 712460712 ICD Code: L03.90 - CELLULITIS, UNSPECIFIED Status: Acute Current Visit: Yes Qualifiers: Site of cellulitis: extremity Site of cellulitis of extremity: lower extremity Laterality: left Qualified Code(s): L03.116 - Cellulitis of left lower limb (5) Diabetes SNOMED Code(s): 19652460 ICD Code: E11.9 - TYPE 2 DIABETES MELLITUS WITHOUT COMPLICATIONS Status: Acute Current Visit: Yes Qualifiers: Diabetes mellitus type: type 2 Diabetes mellitus exterminator helper termite insulin use: without exterminator helper termite use Diabetes mellitus complication status: with kidney complications Diabetes mellitus complication detail: with chronic kidney disease Chronic kidney disease stage: unspecified stage Qualified Code(s): E11.22 - Type 2 diabetes mellitus with diabetic chronic kidney disease (6) History of COPD SNOMED Code(s): 514367072 ICD Code: Z87.09 - PERSONAL HISTORY OF OTHER DISEASES OF THE RESPIRATORY SYSTEM Status: Acute Current Visit: Yes (7) Morbid obesity SNOMED Code(s): 935105671 ICD Code: E66.01 - MORBID (SEVERE) OBESITY DUE TO EXCESS CALORIES Status: Acute Current Visit: No - Patient Summary/Data Consults: Consultations 06/18/20 11:57 OT Evaluation and Treatment [CONS] Routine - Discharge Plan *PRESCRIPTION DRUG MONITORING PROGRAM REVIEWED*: No *COPY OF PRESCRIPTION DRUG MONITORING REPORT IN PATIENT BASHIR: No Home Medications: Home Meds Aspirin [Ecotrin EC] 81 mg PO DAILY 11/14/19 [History] Losartan [Cozaar] 100 mg PO DAILY 11/14/19 [History] Metoprolol Succinate [Toprol XL] 25 mg PO DAILY 11/14/19 [History] atorvaSTATin [Lipitor] 10 mg PO BEDTIME 11/14/19 [History] Glimepiride 1 mg PO ACBREAKFAST 06/14/20 [History] traZODone HCl [Trazodone HCl] 50 mg PO BEDTIME 06/14/20 [History] Piperacillin/Tazobactam [Zosyn] 3.375 gm IV Q6HR vial 06/18/20 [Rx] dexAMETHasone [Decadron] 6 mg IV DAILY [facility] 06/18/20 [Rx] Forms: ED Department Discharge Referrals: Esteban Chance PA-C [Ordering Only Provider] - - Discharge Summary/Plan Comment DC Time >30 min.: Yes - General Info Date of Service: 06/18/20 Admission Dx/Problem (Free Text: Admission Diagnosis/Problem Admission Diagnosis/Problem Cellulitis Subjective Update: No acute events overnight. Left lower leg is still red but not tender anymore. Denies chest pain, shortness of breath, fevers, chills, nausea, vomiting, diarrhea, constipation, dysuria, hematuria, chest pain, or any other new symptoms. - Patient Data Vitals - Most Recent: Last Vital Signs Temp 97.7 F 06/18/20 03:06 Pulse 64 06/18/20 09:42 Resp 20 06/18/20 03:06 BP 133/61 06/18/20 09:44 Pulse Ox 97 06/18/20 03:06 Weight - Most Recent: 366 lb 3.2 oz I&O - Last 24 hours: Intake & Output 06/17/20 06/18/20 06/18/20 22:59 06:59 14:59 Intake Total 2004 961 240 Output Total 1400 300 Balance 604 661 240 Lab Results - Last 24 hrs: Laboratory Results - last 24 hr 06/17/20 06/17/20 06/18/20 Range/Units 17:27 21:24 08:13 POC Glucose 271 H 224 H 149 H (70-105) mg/dl 06/18/20 Range/Units 12:10 POC Glucose 208 H (70-105) mg/dl [facility] Results - Last 24 hrs: Microbiology 06/14/20 04:06 Aerobic Blood Culture - Preliminary Blood - Venous - Iv Start NO GROWTH AFTER 4 DAYS Anaerobic Blood Culture - Preliminary NO GROWTH AFTER 4 DAYS Med Orders - Current: Current Medications Acetaminophen (Tylenol) 650 mg PO Q4H PRN PRN Reason: Pain Last Admin: 06/14/20 18:09 Dose: 650 mg Documented by: Aspirin (Halfprin) 81 mg PO DAILY [facility] Last Admin: 06/18/20 09:38 Dose: 81 mg Documented by: Atorvastatin Calcium (Lipitor) 10 mg PO BEDTIME [facility] Last Admin: 06/17/20 21:26 Dose: 10 mg Documented by: Dexamethasone (Decadron) 6 mg IV DAILY [facility] Stop: 06/25/20 10:46 Last Admin: 06/18/20 09:38 Dose: 6 mg Documented by: Dextrose/Water (Dextrose 50% In Water) 25 ml IVPUSH ASDIRECTED PRN PRN Reason: Hypoglycemia Dextrose/Water (Dextrose 50% In Water) 50 ml IV ASDIRECTED PRN PRN Reason: Hypoglycemia Enoxaparin Sodium (Lovenox) 40 mg SUBCUT BID [facility] Last Admin: 06/18/20 09:40 Dose: 40 mg Documented by: Glucagon (Glucagen) 1 mg IM ONETIME PRN PRN Reason: Hypoglycemia Glucagon (Glucagen) 1 mg IM ASDIRECTED PRN PRN Reason: Hypoglycemia Guaifenesin (Mucinex) 600 mg PO TID [facility] Last Admin: 06/18/20 13:23 Dose: 600 mg Documented by: Sodium Chloride (Normal Saline) 1,000 mls @ 100 mls/hr IV ASDIRECTED [facility] Last Admin: 06/18/20 02:34 Dose: 100 mls/hr Documented by: Piperacillin Sod/Tazobactam (Sod 3.375 gm/ Sodium Chloride) 100 mls @ 200 mls/hr IV Q6HR [facility] Last Admin: 06/18/20 12:16 Dose: 200 mls/hr Documented by: Vancomycin HCl (Vancomycin 1.5 Gm/300 Ml Premix) 300 mls @ 200 mls/hr IV Q12H [facility] Last Infusion: 06/18/20 06:00 Dose: Infused Documented by: Insulin Human Lispro (Humalog) 0 unit SUBCUT WITHMEALSANDBED [facility]; Protocol Last Admin: 06/18/20 12:11 Dose: 4 units Documented by: Lidocaine (Lidoderm 5%) 700 mg TOP DAILY [facility] Last Admin: 06/18/20 09:39 Dose: Not Given Documented by: Losartan Potassium (Cozaar) 100 mg PO DAILY [facility] Last Admin: 06/18/20 09:44 Dose: 100 mg Documented by: Melatonin (Melatonin) 6 mg PO BEDTIME PRN PRN Reason: Sleep Metoprolol Succinate (Toprol Xl) 25 mg PO DAILY [facility] Last Admin: 06/18/20 09:42 Dose: 25 mg Documented by: Miscellaneous Information (Remove Patch) 1 ea TRDERM Q24H [facility] Last Admin: 06/17/20 21:37 Dose: Not Given Documented by: Ondansetron HCl (Zofran Odt) 4 mg PO Q6H PRN PRN Reason: nausea, able to take PO Ondansetron HCl (Zofran) 4 mg IVPUSH Q6H PRN PRN Reason: Nausea/Vomiting Senna/Docusate Sodium (Senna Plus) 1 tab PO BEDTIME PRN PRN Reason: Constipation Sodium Chloride (Saline Flush) 10 ml FLUSH ASDIRECTED PRN PRN Reason: Keep Vein Open Trazodone HCl (Trazodone) 50 mg PO BEDTIME [facility] Last Admin: 06/17/20 21:26 Dose: 50 mg Documented by: Vancomycin HCl (Pharmacy To Dose - Vancomycin) 0 dose .XX ASDIRECTED [facility] Discontinued Medications Acetaminophen (Tylenol) 650 mg PO NOW ONE Stop: 06/14/20 03:47 Last Admin: 06/14/20 03:55 Dose: 650 mg Documented by: Dexamethasone (Decadron) 6 mg IVPUSH ONETIME ONE Stop: 06/14/20 05:34 Last Admin: 06/14/20 05:39 Dose: 6 mg Documented by: Diphenhydramine HCl (Benadryl) 50 mg IVPUSH ONETIME ONE Stop: 06/14/20 04:08 Last Admin: 06/14/20 04:15 Dose: 50 mg Documented by: Furosemide (Lasix) 40 mg IVPUSH NOW ONE Stop: 06/18/20 11:46 Last Admin: 06/18/20 12:11 Dose: 40 mg Documented by: Vancomycin HCl 2,000 mg/ (Sodium Chloride) 500 mls @ 333.333 mls/hr IV ONETIME ONE Stop: 06/14/20 05:36 Last Admin: 06/14/20 06:31 Dose: Not Given Documented by: Vancomycin HCl 1 gm/ Sodium (Chloride) 250 mls @ 167 mls/hr IV ONETIME ONE Stop: 06/14/20 05:48 Last Admin: 06/14/20 04:26 Dose: 167 mls/hr Documented by: Vancomycin HCl 1 gm/ Sodium (Chloride) 250 mls @ 167 mls/hr IV ONETIME ONE Stop: 06/14/20 05:50 Last Admin: 06/14/20 06:31 Dose: 167 mls/hr Documented by: Sodium Chloride (Normal Saline) 1,000 mls @ 100 mls/hr IV ASDIRECTED [facility] Last Infusion: 06/14/20 16:15 Dose: Infused Documented by: Vancomycin HCl 1.5 gm/ Premix 300 mls @ 200 mls/hr IV Q24H [facility] Stop: 06/17/20 06:30 Last Admin: 06/17/20 06:36 Dose: 200 mls/hr Documented by: Ondansetron HCl (Zofran Odt) 4 mg PO ONETIME ONE Stop: 06/14/20 03:47 Last Admin: 06/14/20 03:56 Dose: 4 mg Documented by: - Exam General: Reports: Alert, Oriented, Cooperative, No Acute Distress HEENT: Reports: Pupils Equal, Pupils Reactive, Mucous Membr. Moist/[place] Neck: Reports: Supple Lungs: Reports: Clear to Auscultation, Normal Respiratory Effort Cardiovascular: Reports: Regular Rate, Regular Rhythm GI/Abdominal Exam: Normal Bowel Sounds, Soft, No Organomegaly Extremities: Other (Redness of left lower extremity with persistent edema. Not as warm to touch. Non-tender. Anterior left lower leg scar from recent infectd wound.) Skin: Reports: Warm, Dry, Intact Neurological: Reports: No New Focal Deficit Psy/Mental Status: Reports: Alert, Normal Affect, Normal Mood
[2020-06-18 13:45] VITALS: PULSE 72
== END 2020-06-18 14:48 | DRG 871 ==
LOC: DL.ED 03:41 → DL.MS 06:32 → UNDOADMIN 06:47 → DL.MS 06:47
PROVIDERS: ADMIT Internal Medicine; ATTEND Internal Medicine
PROC: 8E0ZXY6 Isolation (ICD-10-PCS; principal; 2020-06-14)
DX: A41.9 Sepsis, unspecified organism (principal); U07.1 COVID-19; J44.9 Chronic obstructive pulmonary disease, unspecified; L03.116 Cellulitis of left lower limb; Z88.6 Allergy status to analgesic agent; Z79.84 Long term (current) use of oral hypoglycemic drugs; N17.9 Acute kidney failure, unspecified; L03.115 Cellulitis of right lower limb; I10 Essential (primary) hypertension; Z68.44 Body mass index [BMI] 60.0-69.9, adult; E11.9 Type 2 diabetes mellitus without complications; R79.89 Other specified abnormal findings of blood chemistry; E11.22 Type 2 diabetes mellitus with diabetic chronic kidney disease; Z87.09 Personal history of other diseases of the respiratory system; E66.01 Morbid (severe) obesity due to excess calories; Z79.82 Long term (current) use of aspirin; Z79.899 Other long term (current) drug therapy; N18.30 Chronic kidney disease, stage 3 unspecified; J45.909 Unspecified asthma, uncomplicated; I12.9 Hypertensive chronic kidney disease with stage 1 through stage 4 chronic kidney disease, or unspecified chronic kidney disease; Z88.5 Allergy status to narcotic agent; I87.8 Other specified disorders of veins; Z99.81 Dependence on supplemental oxygen; E66.9 Obesity, unspecified; I83.10 Varicose veins of unspecified lower extremity with inflammation; Z86.14 Personal history of Methicillin resistant Staphylococcus aureus infection; Z90.49 Acquired absence of other specified parts of digestive tract; Z90.89 Acquired absence of other organs; F17.210 Nicotine dependence, cigarettes, uncomplicated; Z79.01 Long term (current) use of anticoagulants; E87.6 Hypokalemia
CPT/HCPCS: 36415; 71250; 80048; 80053; 80202; 82150; 82962; 83605; 83690; 83735; 84100; 85025; 85027; 85379; 85610; 86140; 87040; 87804; 94762; 96365; 96366; 96375; 99222; 99232; 99239; 99284; 99285-25; A9270-GY; J1100; J1200; J1650; J1815-GY; J1940; J2543; J3370; J7030; J7050; U0002

== ENCOUNTER 2023-03-27 05:22 | Day surgery (SDC) | payer MEDICAID ==
[~2023-03-27 05:22] MED LIST: Dextrose 5%-0.45% NaCl 1,000 ML IV SCH
[2023-03-27] MEDS ORDERED: Midazolam 1 MG/ML 2 ML SDV ONE (06:29)
[2023-03-27] MEDS ORDERED: fentaNYL 100 MCG/2 ML SDV IV ONE ×4 (06:29→07:09)
[2023-03-27] MEDS ORDERED: fentaNYL 100 MCG/2 ML SDV ONE (06:29)
[2023-03-27] MEDS ORDERED: Midazolam 1 MG/ML 2 ML SDV IV ONE ×7 (06:29→07:06)
[2023-03-27 09:15] VITALS: BP 141/79; PULSE 89
== END 2023-03-27 09:06 | disposition home or self-care (01) ==
LOC: DL.ENDO 05:22
PROVIDERS: ATTEND Internal Medicine Gastroenterology
DX: K63.5 Polyp of colon (principal); K64.4 Residual hemorrhoidal skin tags; K64.8 Other hemorrhoids; J45.909 Unspecified asthma, uncomplicated; G47.30 Sleep apnea, unspecified; E11.22 Type 2 diabetes mellitus with diabetic chronic kidney disease; N18.9 Chronic kidney disease, unspecified; E66.01 Morbid (severe) obesity due to excess calories; F17.210 Nicotine dependence, cigarettes, uncomplicated; Z88.5 Allergy status to narcotic agent; Z98.890 Other specified postprocedural states; Z90.49 Acquired absence of other specified parts of digestive tract; Z90.89 Acquired absence of other organs; Z68.44 Body mass index [BMI] 60.0-69.9, adult
CPT/HCPCS: 81025; J2250; J3010; J7042